=== PATIENT | male | born 1960 | race American Indian/Alaskan Native ===

== ENCOUNTER 2016-09-29 10:36 | Inpatient (IN) | payer MEDICARE ==
[2016-09-29 11:35] LABS: Basophils % (Auto) 0.4 % (0.0-1.8); Hematocrit 34.8 % (35.5-45.6); Mean Corpuscular HGB Conc 32 % (32-34); Mean Corpuscular Hemoglobin 27 pg (28-32); Mean Corpuscular Volume 84 fl (84-94); Platelet Count 140 K/mm3 (140-440); Red Blood Count 4.15 M/mm3 (3.65-5.03)
[2016-09-29] MEDS ORDERED: ZOFRAN IV ONE (11:42)
[2016-09-29] MEDS ORDERED: PROTONIX IV ONE (11:42)
[2016-09-29] MEDS ORDERED: REGLAN IV ONE (11:42)
[2016-09-29 11:45] LABS: BUN/Creatinine Ratio 7.46; Calcium 8.7 mg/dL (8.4-10.2); Chloride 89.6 mmol/L (98-107)
[2016-09-29 11:51] LABS: INR 1.45 (0.87-1.13)
[2016-09-29 11:52] LABS: Partial Thromboplastin Time 49.8 Sec. (24.2-36.6)
--- NOTE | 2016-09-29 11:58 | Emergency Department Report ---
ED General Adult HPI - General Chief complaint: Nausea/Vomiting/Diarrhea Stated complaint: NAUSEA/VOMITING Time Seen by Provider: 09/29/16 11:22 Source: patient Mode of arrival: Ambulatory Limitations: No Limitations - History of Present Illness Initial comments: Patient had the onset of vomiting dark material although he states he been drinking some coffee at about midnight last night. He was discharged from hospital at about 4 PM. He complains of pain in the subxiphoid O area which he describes as a burning. He states he's had normal bowel movements recently. He has not seen any tarry stool. He does take aspirin. He has no prior history of gastritis or peptic ulcer disease. He does not think he's been scoped in the past. He does have a history of cirrhosis but has not drank alcohol in some time. He does not take any anticoagulants. The patient has a history of nonischemic cardiomyopathy. He was recently treated for CHF exacerbation. He had a paracentesis during his recent hospitalization and removal of more than 3 L of fluid. He has chronic right pleural effusion. He had a CT on which showed large volume ascites, cirrhosis, nonfunctioning kidneys had degenerative changes of L4 and L5. His previous cardiac catheterization showed no evidence of coronary artery disease per Dr. Campbell. Patient is transported for her to this facility by EMS. He did vomit in the ambulance. He is given Zofran. Prehospital EKG showed no evidence of acute ischemia. This showed first-degree AV block essentially near normal repolarization. -: Gradual Location: chest, abdomen (subxiphoid/epigastric) Radiation: non-radiation (does not involve back) Quality: burning Consistency: constant Improves with: none Worsens with: none Associated Symptoms: denies other symptoms - Related Data Previous Rx's Medication Instructions Recorded Last Taken Type Aspirin [Aspirin TAB] 325 mg PO QDAY #30 tablet 09/28/16 Unknown Rx AtorvaSTATin [Lipitor] 40 mg PO QHS #30 tablet 09/28/16 Unknown Rx Carvedilol [Coreg] 12.5 mg PO BID #60 tablet 09/28/16 Unknown Rx Insulin Detemir [Levemir] 10 units SUB-Q QHS #1 vial 09/28/16 Unknown Rx Insulin Lispro [HumaLOG VIAL] 3 units SQ AC #1 vial 09/28/16 Unknown Rx Ipratropium/Albuterol Sulfate 1 ampul IH Q6HRT #30 ampul.neb 09/28/16 Unknown Rx [Duoneb 0.5 mg-3 mg/3 ml Soln] Lancets 1 each MC QID #100 each 09/28/16 Unknown Rx Lisinopril [Zestril TAB] 40 mg PO QDAY #30 tablet 09/28/16 Unknown Rx Syring W-Ndl,Disp,Insul,0.3 ml 1 each ACHS #100 disp.syrin 09/28/16 Unknown Rx [Insulin Syringe/Needle 0.3 ML] hydrALAZINE [Apresoline TAB] 50 mg PO Q8HR #120 tablet 09/28/16 Unknown Rx Allergies Allergy/AdvReac Type Severity Reaction Status Date / Time acetaminophen [From Percocet] Allergy Unknown Verified 06/27/16 18:49 morphine Allergy Unknown Verified 06/27/16 18:49 oxycodone Allergy Unknown Verified 06/27/16 18:49 oxycodone HCl [From Percocet] Allergy Unknown Verified 06/27/16 18:49 shellfish derived Allergy Unknown Verified 06/27/16 18:49 ED Review of Systems ROS: Stated complaint: NAUSEA/VOMITING Other details as noted in HPI Constitutional: denies: chills, fever Eyes: denies: eye pain, eye discharge, vision change ENT: denies: ear pain, throat pain Respiratory: denies: cough, shortness of breath, wheezing Cardiovascular: chest pain. denies: palpitations Endocrine: no symptoms reported Gastrointestinal: abdominal pain, nausea, vomiting. denies: diarrhea Genitourinary: denies: urgency, dysuria Musculoskeletal: denies: back pain, joint swelling, arthralgia Skin: denies: rash, lesions Neurological: denies: headache, weakness, paresthesias Psychiatric: denies: anxiety, depression Hematological/Lymphatic: denies: easy bleeding, easy bruising ED Past Medical Hx - Past Medical History Previous Medical History?: Yes Hx Hypertension: Yes Hx Congestive Heart Failure: Yes Hx Diabetes: Yes Hx Renal Disease: Yes (renal failure) Hx Arthritis: Yes Hx Seizures: Yes Hx Psychiatric Treatment: Yes (depression) Additional medical history: sleep apnea, erective dysfunction, dialysis, back pain, high cholesterol - Surgical History Past Surgical History?: Yes Additional Surgical History: biopsy on prostate, colonoscopy, fistula left arm, - Social History Smoking Status: Never Smoker - Medications Home Medications: Home Medications Medication Instructions Recorded Confirmed Last Taken Type Aspirin [Aspirin TAB] 325 mg PO QDAY #30 tablet 09/28/16 09/29/16 Unknown Rx AtorvaSTATin [Lipitor] 40 mg PO QHS #30 tablet 09/28/16 09/29/16 Unknown Rx Carvedilol [Coreg] 12.5 mg PO BID #60 tablet 09/28/16 09/29/16 Unknown Rx Insulin Detemir [Levemir] 10 units SUB-Q QHS #1 vial 09/28/16 09/29/16 Unknown Rx Insulin Lispro [HumaLOG VIAL] 3 units SQ AC #1 vial 09/28/16 09/29/16 Unknown Rx Ipratropium/Albuterol Sulfate 1 ampul IH Q6HRT #30 ampul.neb 09/28/16 09/29/16 Unknown Rx [Duoneb 0.5 mg-3 mg/3 ml Soln] Lancets 1 each QID #100 each 09/28/16 09/29/16 Unknown Rx Lisinopril [Zestril TAB] 40 mg PO QDAY #30 tablet 09/28/16 09/29/16 Unknown Rx Syring W-Ndl,Disp,Insul,0.3 ml 1 each ACHS #100 disp.syrin 09/28/16 09/29/16 Unknown Rx [Insulin Syringe/Needle 0.3 ML] hydrALAZINE [Apresoline TAB] 50 mg PO Q8HR #120 tablet 09/28/16 09/29/16 Unknown Rx ED Physical Exam - General Limitations: No Limitations General appearance: alert, in no apparent distress, other (uncomfortable) - Head Head exam: Present: atraumatic, normocephalic. Absent: normal inspection - Eye Eye exam: Present: normal appearance - ENT ENT exam: Present: mucous membranes moist - Neck Neck exam: Present: normal inspection - Respiratory Respiratory exam: Present: normal lung sounds bilaterally. Absent: respiratory distress - Cardiovascular Cardiovascular Exam: Present: regular rate, normal rhythm. Absent: systolic murmur, diastolic murmur, rubs, gallop - GI/Abdominal GI/Abdominal exam: Present: soft, distended, tenderness (epigastric and right upper quadrant tenderness no rebound no guarding), normal bowel sounds, organomegaly (probable hepatomegaly), other (no gross palpable fluid wave). Absent: guarding, rebound, rigid, mass, bruit, pulsatile mass, hernia - Rectal Rectal exam: Present: deferred - Extremities Exam Extremities exam: Present: normal inspection - Back Exam Back exam: Present: normal inspection - Neurological Exam Neurological exam: Present: alert, oriented X3, CN II-XII intact. Absent: motor sensory deficit - Psychiatric Psychiatric exam: Present: normal affect, normal mood - Skin Skin exam: Present: warm, dry, intact, normal color. Absent: rash - Other Other exam information: Hemoccult of emesis was significantly positive ED Course Vital Signs 09/29/16 09/29/16 11:00 11:09 Temperature 97.8 F Pulse Rate 73 Respiratory 20 20 Rate Blood Pressure 165/74 O2 Sat by Pulse 100 100 Oximetry - Reevaluation(s) Reevaluation #1: Patient declined opiates as he states they cause itching. We will see if he changes his mind and we can give him Benadryl first. 09/29/16 11:58 ED Medical Decision Making - Lab Data Result diagrams: 09/29/16 11:26 09/29/16 11:14 Laboratory Results - last 24 hr 09/29/16 09/29/16 09/29/16 11:14 11:14 11:14 WBC RBC Hgb Hct MCV MCH MCHC RDW Plt Count Lymph % (Auto) [place] % (Auto) Eos % (Auto) Baso % (Auto) Lymph # [place] # Eos # Baso # Seg Neutrophils % Seg Neutrophils # PT 17.6 H INR 1.45 H APTT 49.8 H Sodium 133 L Potassium 5.0 Chloride 89.6 L Carbon Dioxide 28 Anion Gap 20 BUN 47 H Creatinine 6.3 H Estimated GFR 11 BUN/Creatinine Ratio 7.46 Glucose 398 H Lactic Acid Calcium 8.7 Phosphorus Magnesium Ammonia Total Creatine Kinase 766 H CK-MB (CK-2) 19.1 H CK-MB (CK-2) Rel Index 2.4 Troponin T 1.340 H* Amylase Lipase Blood Type Antibody Screen MARYCHUY Antibody Screen 09/29/16 09/29/16 09/29/16 11:14 11:14 11:26 WBC 6.0 RBC 4.15 Hgb 11.0 L Hct 34.8 L MCV 84 MCH 27 L MCHC 32 RDW 20.0 H Plt Count 140 Lymph % (Auto) 9.1 L [place] % (Auto) 7.8 H Eos % (Auto) 8.0 H Baso % (Auto) 0.4 Lymph # 0.5 L [place] # 0.5 Eos # 0.5 H Baso # 0.0 Seg Neutrophils % 74.7 H Seg Neutrophils # 4.5 PT INR APTT Sodium Potassium Chloride Carbon Dioxide Anion Gap BUN Creatinine Estimated GFR BUN/Creatinine Ratio Glucose Lactic Acid Calcium Phosphorus 2.70 Magnesium 1.90 Ammonia Total Creatine Kinase CK-MB (CK-2) CK-MB (CK-2) Rel Index Troponin T Amylase 113 Lipase 62 H Blood Type Antibody Screen MARYCHUY Antibody Screen 09/29/16 09/29/16 09/29/16 11:45 12:12 12:12 WBC RBC Hgb Hct MCV MCH MCHC RDW Plt Count Lymph % (Auto) [place] % (Auto) Eos % (Auto) Baso % (Auto) Lymph # [place] # Eos # Baso # Seg Neutrophils % Seg Neutrophils # PT INR APTT Sodium Potassium Chloride Carbon Dioxide Anion Gap BUN Creatinine Estimated GFR BUN/Creatinine Ratio Glucose Lactic Acid 0.80 Calcium Phosphorus Magnesium Ammonia 47.0 Total Creatine Kinase CK-MB (CK-2) CK-MB (CK-2) Rel Index Troponin T Amylase Lipase Blood Type B POSITIVE Antibody Screen TNR MARYCHUY Antibody Screen Negative - EKG Data -: EKG Interpreted by Me EKG shows normal: axis, intervals, QRS complexes, ST-T waves Rate: normal - EKG Data Interpretation: other (first-degree AV block nonspecific changes) - Radiology Data interpreted by me: Chest x-ray shows some minor fissure fluid on the right. I don't see any acute change in neither the radiologist. - Medical Decision Making The patient does have an elevated troponin in the setting of cardiomyopathy and end-stage renal on dialysis. He June had a troponin of 0.8 5 which was as well elevated. He is been previously determined to have a nonischemic cardiomyopathy. He has definite hematemesis. I do not think that his elevated troponin is likely secondary to non-STEMI. His EKG does not reflect ischemia. I would withhold aspirin and heparin at this point considering the upper GI bleeding. I discussed this with hospitalist Dr. Upton. Patient will be admitted to telemetry for further care and evaluation. I will consult Dr. Campbell who is familiar with this patient. Critical care attestation.: If time is entered above; I have spent that time in minutes in the direct care of this critically ill patient, excluding procedure time. ED Disposition Clinical Impression: Upper GI bleeding, ESRD (end stage renal disease) on dialysis, Nonischemic cardiomyopathy, Elevated troponin Disposition: OP ADMITTED IP TO THIS HOSP Is pt being admited?: Yes Does the pt Need Aspirin: No Condition: Stable Referrals: PRIMARY CARE, [Primary Care Provider] - 3-5 Days Time of Disposition: 13:16
--- NOTE | 2016-09-29 12:18 | XRay Report ---
AP CHEST: HISTORY: Hypertension Heart size is borderline to mildly increased. Normal pulmonary vascularity. The lungs are clear. No evidence for pneumonia, CHF or pneumothorax. IMPRESSION: Borderline to mild cardiomegaly.
[2016-09-29 12:31] LABS: Magnesium 1.9 mg/dL (1.7-2.3)
[2016-09-29 12:36] LABS: Creatine Kinase MB 19.1 ng/mL (0.0-4.0)
[2016-09-29 13:03] LABS: Phosphorous 2.7 mg/dL (2.5-4.5)
[2016-09-29] MEDS ORDERED: NITRO-BID 2% TP ONE ×2 (14:27→14:50)
--- NOTE | 2016-09-29 14:39 | Progress Note ---
Assessment and Plan Impression: * End stage renal disease on HD TTS * hematemesis * Elevated troponin * Dyspnea secondary to pulmonary edema * Abdominal ascites * Non-ischemic cardiomyopathy, LVEF 30% by LV gram ([facility] in Jun 2016) * Type II diabetes mellitus - uncontrolled * Hypertension * Anemia secondary to ESRD * Secondary hyperparathyroidism * Dietary noncompliance Plan: * Continue HD UF as tolerated * with troponin of 1.3, no plans for hd today until evaluated by cards and GI * Patient is s/p paracentesis - 3.7liters removed * Cardiology recs noted - possible elective ICD in future * Importance of fluid restriction discussed with patient * Renal diet; fluid restriction 1000ml/day * Epogen for goal Hb 10-12 Subjective Date of service: 09/29/16 Principal diagnosis: esrd Interval history: events noted, resting in bed Objective - Exam Narrative Exam: General appearance: well-developed, well-nourished EENT: mucous membranes moist Respiratory: Present: Clear to Ascultation Cardiology: regular, S1S2 Gastrointestinal: normal, no tenderness, no distended Neurologic: no focal deficit Musculoskeletal: other (no edema) Psychiatric: cooperative - Vital Signs Vital signs: Vital Signs - 12hr 09/29/16 14:12 Temperature 97.7 F Pulse Rate 81 Respiratory 16 Rate Blood Pressure 179/92 [Left] O2 Sat by Pulse 100 Oximetry - Lab 09/29/16 11:26 09/29/16 11:14 Most recent lab results Calcium 8.7 mg/dL (8.4-10.2) 09/29/16 11:14 Phosphorus 2.70 mg/dL (2.5-4.5) 09/29/16 11:14 Magnesium 1.90 mg/dL (1.7-2.3) 09/29/16 11:14
--- NOTE | 2016-09-29 15:18 | Gastroenterology Consultation ---
History of Present Illness - Reason for Consult Consult date: 09/29/16 coffee ground emesis Requesting physician: MALLY DEVINE - History of Present Illness Mr Westfall is a 56 yo male with h/o ESRD, HTN and CHF presenting with substernal and upper abdominal pain with n/v. Pt was discharged yesterday after admission for CHF exacerbation. He reports drinking coffee at midnight, and proceeded to have multiple episodes of dark brown emesis. He denies black appearing emesis or obvious blood. He denies melena, or NSAIDs other than aspirin. Of note, pt with evidence of cirrhosis on recent CT scan with ascites s/p paracentesis on prior admission. He has a past h/o alcohol abuse, but denies recent alcohol intake. Denies prior h/o GI bleeding. Past History Past Medical History: diabetes, ESRD, GERD, heart failure, hypertension, other ( cirrhosis) Social history: no significant social history Family history: no significant family history Medications and Allergies Allergies Allergy/AdvReac Type Severity Reaction Status Date / Time acetaminophen [From Percocet] Allergy Unknown Verified 06/27/16 18:49 morphine Allergy Unknown Verified 06/27/16 18:49 oxycodone Allergy Unknown Verified 06/27/16 18:49 oxycodone HCl [From Percocet] Allergy Unknown Verified 06/27/16 18:49 shellfish derived Allergy Unknown Verified 06/27/16 18:49 Home Medications Medication Instructions Recorded Confirmed Last Taken Type Aspirin [Aspirin TAB] 325 mg PO QDAY #30 tablet 09/28/16 09/29/16 Unknown Rx AtorvaSTATin [Lipitor] 40 mg PO QHS #30 tablet 09/28/16 09/29/16 Unknown Rx Carvedilol [Coreg] 12.5 mg PO BID #60 tablet 09/28/16 09/29/16 Unknown Rx Insulin Detemir [Levemir] 10 units SUB-Q QHS #1 vial 09/28/16 09/29/16 Unknown Rx Insulin Lispro [HumaLOG VIAL] 3 units SQ AC #1 vial 09/28/16 09/29/16 Unknown Rx Ipratropium/Albuterol Sulfate 1 ampul IH Q6HRT #30 ampul.neb 09/28/16 09/29/16 Unknown Rx [Duoneb 0.5 mg-3 mg/3 ml Soln] Lancets 1 each MC QID #100 each 09/28/16 09/29/16 Unknown Rx Lisinopril [Zestril TAB] 40 mg PO QDAY #30 tablet 09/28/16 09/29/16 Unknown Rx Syring W-Ndl,Disp,Insul,0.3 ml 1 each ACHS #100 disp.syrin 09/28/16 09/29/16 Unknown Rx [Insulin Syringe/Needle 0.3 ML] hydrALAZINE [Apresoline TAB] 50 mg PO Q8HR #120 tablet 09/28/16 09/29/16 Unknown Rx Review of Systems - Review of Systems All systems: negative Cardiovascular: shortness of breath Exam - Constitutional Vital Signs: Temp Pulse Resp BP Pulse Ox 97.7 F 84 16 181/110 100 09/29/16 14:12 09/29/16 15:00 09/29/16 14:12 09/29/16 15:00 09/29/16 14:12 General appearance: no acute distress - EENT Eyes: PERRL, EOM intact ENT: hearing intact, clear oral mucosa - Neck Neck: supple - Respiratory Respiratory effort: normal Respiratory: right: diminished, left: CTA - Cardiovascular Rhythm: regular Heart Sounds: Present: S1 & S2 Extremities: Full ROM Extremity abnormal: edema - Gastrointestinal General gastrointestinal: Present: soft, non-tender, non-distended, normal bowel sounds - Neurologic Neurological: alert and oriented x3 - Psychiatric Psychiatric: appropriate mood/affect - Labs CBC & Chem 7: 09/29/16 11:26 09/29/16 11:14 Assessment and Plan 1. epigastric/substernal pain - unclear etiology, noted elevated troponin on admission, however has had recent LHC which was negative for CAD (EF 30%). ddx also includes PUD, severe GERD, gallstone/biliary etiology, and gastroparesis 2. nausea/vomitting - pt reports dark brown emesis, denies black/harris blood emesis. Hct within baseline. Unclear etiology, but pt noted to have poorly controlled DM (a1c of 15.5) so likely has component of gastroparesis. 3. cirrhosis - noted on imaging, and also consistent with labs. h/o alcohol abuse, r/o viral hepatitis with serologies. If pt requires paracentesis, send fluid for diagnostic studies (total protein, cell count/diff, albumin, culture/ gram stain). He will need follow-up in GI clinic for management of cirrhosi 4. anemia -stable hct on admission. low suspicion for active gi bleeding, although he does have multiple risk factors and should have eventual non-urgent EGD for varices screening if cleared by cardiology (or urgently if needed/signs of bleeding)
--- NOTE | 2016-09-29 21:17 | Event Note ---
Date: 09/29/16 See H/p in reports Upper GI bleed-Questionable per GI HTN ESRD IDDM Ascites
[2016-09-29] MEDS: COREG PO SCH (22:11)
[2016-09-29] MEDS: APRESOLINE PO SCH (22:12)
[2016-09-29] MEDS: ASPIRIN PO SCH (22:13)
[2016-09-29] MEDS: PROTONIX IV SCH (22:13)
[2016-09-29] MEDS: LEVEMIR SUB-Q SCH (22:14)
[2016-09-30] MEDS ORDERED: DUONEB 0.5 MG-3 MG/3 ML SOLN IH SCH (02:00)
--- NOTE | 2016-09-30 06:15 | History and Physical Report ---
CHIEF COMPLAINT: 1. Abdominal pain. 2. Dark brown emesis. HISTORY OF PRESENT ILLNESS: A 56-year-old male with history of end-stage renal disease, end-stage cardiac disease with poor ejection fraction, hypertension, and CHF, presenting with upper abdominal pain and nausea/vomiting x 1. Apparently, it was dark brown emesis. ER stated that it was after breakfast. It may also have the coffee he drank last night. The patient was recently discharged from this facility after being treated for CHF exacerbation, end-stage renal disease on dialysis, and ascites. The patient had paracentesis. The patient's shortness of breath improved a large extent he was sent home. The patient is noncompliant. The patient was advised to be compliant. At the time of discharge, the patient also had ascites and severe systolic CHF. 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 A 3.7 liters of fluid removed at the last admission. The discharge was on 09/28/2016. In summary, the patient has had epigastric pain and dark brown emesis, which may have been the last night coffee or blood. As per ER, he is occult blood positive. PAST MEDICAL HISTORY: Significant for hypertension, congestive heart failure, end-stage renal disease on dialysis, and insulin-dependent diabetes. CURRENT MEDICATIONS: On the chart. PAST SURGICAL HISTORY: Biopsy of prostate, colonoscopy, and fistula in left arm. SOCIAL HISTORY: Never a smoker. FAMILY HISTORY: Hypertension. REVIEW OF SYSTEMS: Significant for abdominal pain and dark brown emesis and also shortness of breath on minimal exertion. Otherwise, review of systems is essentially negative. PHYSICAL EXAMINATION: GENERAL: Elderly male lying comfortable in bed. VITAL SIGNS: Blood pressure 164/96, temperature is 99, pulse 87, respirations are 16. HEENT: Unremarkable. Pupils equal and reactive. NECK: Supple, no lymphadenopathy, no thyromegaly. LUNGS: Clear to auscultation and percussion. Good air entry. CARDIOVASCULAR: S1, S2 heard. No gallop, no murmur, no rub. Apical impulse in left fifth intercostal space and midclavicular line. ABDOMEN: Soft and benign. No hepatosplenomegaly. No guarding, no rigidity. Hernial orifices are normal. EXTREMITIES: Good pedal pulses. No pedal edema. Left upper extremity graft patent. CENTRAL NERVOUS SYSTEM: Alert and oriented x 4, nonfocal exam. LABORATORY DATA: Significant for hemoglobin of 11, hematocrit 34.8, and platelet count of 140. White count of 6000. Sodium is 133, potassium is 5, BUN and creatinine is 47 and 6.8, and glucose is 233. Troponin is elevated at 1.3. Total CK 766 and CK-MB is 19.1 and index is low 2.4. Lipase is 62. IMAGING: EKG shows normal sinus rhythm. Normal QRS complexes. Nonspecific ST-T wave changes. First degree AV block nonspecific. Chest x-ray shows minor fissure fluid on the right side. No acute changes otherwise. ASSESSMENT AND PLAN: 1. Upper gastrointestinal bleed, doubtful. ER state he is occult blood positive. As per GI, it is probably old coffee, which came out during emesis. GI to decide about doing upper endoscopy. I was requesting them to do an upper endoscopy to rule out esophageal varices or esophageal bleed. Troponin is elevated and GI wants cardiac clearance. Cardiology consult requested. Elevated troponin may be nonspecific. It is a bit high. We will defer to Cardiology. 2. Hypertension. Continue Coreg 12.5 mg b.i.d., hydralazine 50 mg q.8h., and lisinopril 40 mg daily. 3. Insulin-dependent diabetes. Continue Levemir 10 units subcutaneous at bedtime and 3 units before each meal. 4. Hyperlipidemia. Continue atorvastatin 40 mg p.o. at bedtime. 5. Chronic obstructive pulmonary disease. Continue . 6. 3.7 liters recently. Hospitalist team to decide whether to pursue with paracentesis, had paracentesis only 3-4 days ago. 7 Deep venous thrombosis prophylaxis, Lovenox 40 mg subcutaneous daily. JOB# [id number] LINETTE/NTS
[2016-09-30] MEDS: APRESOLINE PO SCH ×3 (06:28→21:40)
[2016-09-30] MEDS ORDERED: INSULIN LISPRO 3 UNIT SQ SCH (07:30)
[2016-09-30] MEDS: NOVOLOG SUB-Q SCH ×6 (08:08→22:05)
[2016-09-30] MEDS: DUONEB 0.5 MG-3 MG/3 ML SOLN IH SCH ×2 (08:59→19:48)
--- NOTE | 2016-09-30 09:00 | Progress Note ---
Assessment and Plan Assessment and plan: 56-year-old man with a past medical history of hypertension, poor compliance, type 2 diabetes which is insulin-dependent, systolic CHF, end-stage renal disease/CkD stage V on hemodialysis treatments , recent paracentesis with 3.7 L of ascitic fluid removed last week , who presents with abdominal pain, nausea/ vomiting 1. Abdominal Pain/Nausea and Vomiting Now resolved, most likely gastroenteritis or due to hyperosmolar states Follow-up abdominal ultrasound 2. Chronic systolic CHF continue renal diet, and fluid restriction recent echocardiogram June 2016 showed an EF of 25% Cardiological management patient 3. Type 2 diabetes/uncontrolled/insulin-dependent/diabetic hyperosmolarity poor compliance with insulin at home Glucose was greater than 500 on presentation, continue long-acting insulin, pre- meal insulin sliding scale Patient was reeducated again about improving compliance with his medications treatments and dialysis sessions 5. COPD Doesn't appear to be exacerbation at this time, continue inhalers 6. End-stage renal disease/chronic kidney disease stage V on hemodialysis Continue hemodialysis, nephrology input appreciated 7. DVT prophylaxis Heparin subcutaneous History Interval history: Bleeding he states the nausea and vomiting has resolved, he feels fine now. No complaints Hospitalist Physical - Physical exam Narrative exam: General: Patient appears well in no distress HEENT: MMM, EOMI cardiac: S1-S2 heard lungs: clear to auscultation, abdomen: soft, nontender, nondistended bowel sounds positive extremities: no edema clubbing or cyanosis Skin: no rash or lesion Neuro: no focal deficit Psych: appropriate behavior and mood, cognition intact - Constitutional Vitals: Temp Pulse Resp BP Pulse Ox 98.8 F 73 20 161/101 99 09/30/16 06:00 09/30/16 08:56 09/30/16 08:56 09/30/16 06:00 09/30/16 08:56 Results - Labs CBC & Chem 7: 09/29/16 11:26 09/29/16 11:14 Labs: Laboratory Last Values WBC 6.0 K/mm3 (4.5-11.0) 09/29/16 11:26 RBC 4.15 M/mm3 (3.65-5.03) 09/29/16 11:26 Hgb 11.0 gm/dl (11.8-15.2) L 09/29/16 11:26 Hct 34.8 % (35.5-45.6) L 09/29/16 11: MCV 84 fl (84-94) 09/29/16 11: MCH 27 pg (28-32) L 09/29/16 11: MCHC 32 % (32-34) 09/29/16 11:26 RDW 20.0 % (13.2-15.2) H 09/29/16 11:26 Plt Count 140 K/mm3 (140-440) 09/29/16 11:26 Lymph % (Auto) 9.1 % (13.4-35.0) L 09/29/16 11:26 [place] % (Auto) 7.8 % (0.0-7.3) H 09/29/16 11:26 Eos % (Auto) 8.0 % (0.0-4.3) H 09/29/16 11:26 Baso % (Auto) 0.4 % (0.0-1.8) 09/29/16 11:26 Lymph # 0.5 K/mm3 (1.2-5.4) L 09/29/16 11:26 [place] # 0.5 K/mm3 (0.0-0.8) 09/29/16 11:26 Eos # 0.5 K/mm3 (0.0-0.4) H 09/29/16 11:26 Baso # 0.0 K/mm3 (0.0-0.1) 09/29/16 11:26 Seg Neutrophils % 74.7 % (40.0-70.0) H 09/29/16 11:26 Seg Neutrophils # 4.5 K/mm3 (1.8-7.7) 09/29/16 11:26 PT 17.6 Sec. (12.2-14.9) H 09/29/16 11:14 INR 1.45 (0.87-1.13) H 09/29/16 11:14 APTT 49.8 Sec. (24.2-36.6) H 09/29/16 11:14 Sodium 133 mmol/L (137-145) L 09/29/16 11:14 Potassium 5.0 mmol/L (3.6-5.0) 09/29/16 11:14 Chloride 89.6 mmol/L (98-107) L 09/29/16 11:14 Carbon Dioxide 28 mmol/L (22-30) 09/29/16 11:14 Anion Gap 20 mmol/L 09/29/16 11:14 BUN 47 mg/dL (9-20) H 09/29/16 11:14 Creatinine 6.3 mg/dL (0.8-1.5) H 09/29/16 11:14 Estimated GFR 11 ml/min 09/29/16 11:14 BUN/Creatinine Ratio 7.46 % 09/29/16 11:14 Glucose 398 mg/dL (75-100) H 09/29/16 11:14 POC Glucose 374 (70-105) H 09/29/16 21:52 Lactic Acid 0.80 mmol/L (0.7-2.0) 09/29/16 12:12 Calcium 8.7 mg/dL (8.4-10.2) 09/29/16 11:14 Phosphorus 2.70 mg/dL (2.5-4.5) 09/29/16 11:14 Magnesium 1.90 mg/dL (1.7-2.3) 09/29/16 11:14 Ammonia 47.0 umol/L (25-60) 09/29/16 12:12 Total Creatine Kinase 766 units/L (55-170) H 09/29/16 11:14 CK-MB (CK-2) 19.1 ng/mL (0.0-4.0) H 09/29/16 11:14 CK-MB (CK-2) Rel Index 2.4 (0-4) 09/29/16 11:14 Troponin T 1.290 ng/mL (0.00-0.029) H* 09/29/16 17:34 NT-Pro-B Natriuret Pep > 11044 pg/mL (0-900) H 09/29/16 11:14 Triglycerides 43 mg/dL (2-149) 09/29/16 11:14 Cholesterol 88 mg/dL (50-199) 09/29/16 11:14 LDL Cholesterol Direct 40 mg/dL (50-130) L 09/29/16 11:14 HDL Cholesterol 40 mg/dL (40-59) 09/29/16 11:14 Cholesterol/HDL Ratio 2.20 % 09/29/16 11:14 Amylase 113 units/L (27-131) 09/29/16 11:14 Lipase 62 units/L (13-60) H 09/29/16 11:14 Blood Type B POSITIVE 09/29/16 11:45 Antibody Screen TNR 09/29/16 11:45 MARYCHUY Antibody Screen Negative 09/29/16 11:45
[2016-09-30] MEDS ORDERED: ZESTRIL PO SCH (10:00)
[2016-09-30] MEDS: PROTONIX IV SCH ×2 (10:03→21:41)
[2016-09-30] MEDS ORDERED: NACL 0.9% 100 ML IV PRN (11:04)
--- NOTE | 2016-09-30 11:04 | Progress Note ---
Assessment and Plan Impression: * End stage renal disease * hematemesis * Elevated troponin * Dyspnea secondary to pulmonary edema * Abdominal ascites * Non-ischemic cardiomyopathy, LVEF 30% by LV gram ([facility] in Jun 2016) * Type II diabetes mellitus - uncontrolled * Hypertension * Anemia secondary to ESRD * Secondary hyperparathyroidism * Dietary noncompliance Plan: * Continue HD in am * UF as tolerated * with troponin of 1.3, no plans for hd today until evaluated by cards and GI * Patient is s/p paracentesis - 3.7liters removed * Cardiology recs noted - possible elective ICD in future * Importance of fluid restriction discussed with patient * Renal diet; fluid restriction 1000ml/day * Epogen for goal Hb 10-12 Subjective Date of service: 09/30/16 Principal diagnosis: esrd Interval history: events noted, resting in bed Objective - Exam Narrative Exam: General appearance: well-developed, well-nourished EENT: mucous membranes moist Respiratory: Present: Clear to Ascultation Cardiology: regular, S1S2 Gastrointestinal: normal, no tenderness, no distended Neurologic: no focal deficit Musculoskeletal: other (no edema) Psychiatric: cooperative - Vital Signs Vital signs: Vital Signs - 12hr 09/30/16 09/30/16 09/30/16 00:00 02:00 02:07 Temperature 99 F Pulse Rate 75 Pulse Rate [ From Monitor] Pulse Rate [ 75 Posterior Bilateral Throughout] Pulse Rate [ 77 Right Radial] Respiratory 21 Rate Respiratory 20 Rate [Posterior Bilateral Throughout] Blood Pressure 147/92 [Left Arm] Blood Pressure [Right Radial Artery] O2 Sat by Pulse 99 Oximetry 09/30/16 09/30/16 09/30/16 02:20 03:06 06:00 Temperature 98.8 F Pulse Rate Pulse Rate [ From Monitor] Pulse Rate [ 75 Posterior Bilateral Throughout] Pulse Rate [ 75 Right Radial] Respiratory 18 20 Rate Respiratory 20 Rate [Posterior Bilateral Throughout] Blood Pressure 161/101 [Left Arm] Blood Pressure [Right Radial Artery] O2 Sat by Pulse 96 Oximetry 09/30/16 09/30/16 09/30/16 08:56 09:15 09:57 Temperature 98.0 F Pulse Rate Pulse Rate [ From Monitor] Pulse Rate [ 73 75 Posterior Bilateral Throughout] Pulse Rate [ 72 Right Radial] Respiratory 16 Rate Respiratory 20 20 Rate [Posterior Bilateral Throughout] Blood Pressure [Left Arm] Blood Pressure 148/94 [Right Radial Artery] O2 Sat by Pulse 99 98 Oximetry 09/30/16 10:00 Temperature Pulse Rate Pulse Rate [ 75 From Monitor] Pulse Rate [ Posterior Bilateral Throughout] Pulse Rate [ Right Radial] Respiratory 20 Rate Respiratory Rate [Posterior Bilateral Throughout] Blood Pressure [Left Arm] Blood Pressure [Right Radial Artery] O2 Sat by Pulse 98 Oximetry - Lab 09/29/16 11:26 09/29/16 11:14 Most recent lab results Calcium 8.7 mg/dL (8.4-10.2) 09/29/16 11:14 Phosphorus 2.70 mg/dL (2.5-4.5) 09/29/16 11:14 Magnesium 1.90 mg/dL (1.7-2.3) 09/29/16 11:14
--- NOTE | 2016-09-30 11:23 | Ultrasound Report ---
Abdominal sonogram: History: Abdominal pain. Findings: Normal aorta and inferior vena cava. Course echogenic pattern of the liver probably suggestive of cirrhosis. No distinct mass. Evidence of moderate ascites and right pleural effusion. Gallbladder wall thickness 3.5 mm. Common bile duct diameter 2.8 mm. No calculi in the gallbladder. No pericholecystic fluid. Right kidney 8.3 x 3.5 x 3.8 cm. Cortical thickness 1 cm. Left kidney 8 x 4.7 x 2.8 cm. Cortical thickness 1.3 cm. Bilateral echogenic kidneys. Poorly defined cortical medullary junction. Impression: Cirrhosis. Ascites. Right pleural effusion. Probable chronic renal disease.
[2016-09-30] MEDS: ASPIRIN PO SCH (13:06)
[2016-09-30] MEDS: COREG PO SCH ×2 (17:06→21:41)
--- NOTE | 2016-09-30 21:09 | Gastroenterology Progress Note ---
Assessment and Plan 1. cirrhosis - reported h/o alcohol abuse, r/o other etiologies. h/o ascites ( obtain diagnostic tap to help differentiate b/w portal htn vs CHF related ascites) 2. nausea/vomiting - improved, no further episodes since admission. denies signs of GI bleeding. suspect component of gastroparesis given poorly controlled dm and significant elevation in glucose on admission. -will plan for possible EGD tomorrow if cleared by cardiology (CHF, and elevated troponin although this is in setting of ESRD and appears to have recent C w/o CAD Subjective Date of service: 09/30/16 Principal diagnosis: coffee ground emesis, cirrhosis, ESRD, CHF Interval history: pt denies new complaints today. no further episodes of abd pain or n/v. Objective - Constitutional Vitals: Temp Pulse Resp BP Pulse Ox 98.0 F 70 20 167/98 98 09/30/16 09:57 09/30/16 17:07 09/30/16 10:00 09/30/16 17:07 09/30/16 10:00 General appearance: no acute distress - Respiratory Respiratory effort: normal Respiratory: bilateral: CTA - Cardiovascular Rhythm: regular Heart Sounds: Present: S1 & S2 - Gastrointestinal General gastrointestinal: Present: soft, non-tender, normal bowel sounds - Neurologic Neurological: alert and oriented x3 - Psychiatric Psychiatric: appropriate mood/affect - Labs CBC & Chem 7: 09/29/16 11:26 09/29/16 11:14 Labs: Laboratory Results - last 24 hr 09/29/16 21:52 POC Glucose 374 H - Imaging Ultrasound: report reviewed
[2016-09-30] MEDS: LEVEMIR SUB-Q SCH (21:42)
[2016-09-30] MEDS: HEPARIN SUB-Q SCH (21:45)
--- NOTE | 2016-10-01 03:23 | Admit Criteria Form ---
Admission Criteria Documentation: GASTROINTESTINAL BLEEDING, UPPER Clinical Indications for Admission to Inpatient Care ( Place 'X' for any and all applicable criteria): Admission is indicated for ANY ONE of the following(1)(2)(3)(4)(5)(6): [ ]I. Active bleeding (eg, fresh voluminous blood in emesis or nasogastric aspirate) [ ]II. Associated conditions requiring hospitalization (eg, perforation, obstruction from ulcer) [ ]III. Inpatient admission required rather than observation care (Also use Gastrointestinal Bleeding, Upper: Observation Care as appropriate) because of ANY ONE of the following: [ ]a) Hemodynamic instability that is severe or persistent [ ]b) Anemia requiring inpatient admission as indicated by ALL of the following: [ ]1) Presence of significant clinical finding indicated by ANY ONE of the following: [ ]A. Tachycardia for age [ ]B. Orthostatic vital sign changes [ ]C. Cognitive impairment [ ]D. Heart failure [ ]E. Chest pain [ ]F. Exertional dyspnea [ ]G. Other findings suggesting inadequate perfusion (eg, peripheral or myocardial ischemia, end organ dysfunction) [ ]2) Initial (eg, emergency department, observation care) treatment with transfusion or volume replacement is judged inappropriate (due to severity of the finding) or has been ineffective [ ]c) Severe pain requiring acute inpatient management [ ]d) High-risk low platelet count [ ]e) IV fluid to replace significant ongoing losses (greater than 3 L/m2 per day) [ ]f) Immediate inpatient surgery [ ]g) Other condition, treatment or monitoring requiring inpatient admission [ X]IV. Severe liver disease (eg, cirrhosis) [ ]V. Significant active comorbid disease [ ]. Anticoagulation therapy [ ]VII. High-risk endoscopic features (arterial bleeding, adherent clot, nonbleeding visible vessel, varices, flat red spots, ulcer size greater than 2 cm, or portal hypertensive gastropathy) [ ]VIII. Previous aortic graft placement or known aortic aneurysm [ ]IX. Coagulopathy [ ]X. Syncope Extended stay beyond goal length of stay may be needed for(1)(2): [ ]a) Emergency surgery [ ]b) Varices [ ]c) Coagulation abnormalities [ ]d) Recurrent, obscure, or persistent bleeding or continued Hemodynamic instability [ ]e) Associated conditions requiring surgery (eg, perforated gastric ulcer, gastric outlet obstruction) [ ]f) Active comorbidities (eg, renal insufficiency, heart failure, pre- existing liver disease) The original [facility] [employer] content created by [facility] [email or web address] has been revised. The portions of the content which have been revised are identified through the use of italic text or in bold, and [email or web address] has neither reviewed nor approved the modified material. All other unmodified content is copyright [facility] [email or web address]. Please see references footnoted in the original [facility] [employer] edition 2016
[2016-10-01] MEDS ORDERED: ULTRAM PO ONE (04:58)
[2016-10-01] MEDS: HEPARIN SUB-Q SCH ×4 (06:11→22:48)
[2016-10-01] MEDS: APRESOLINE PO SCH ×3 (06:11→22:35)
[2016-10-01] MEDS ORDERED: DIPRIVAN 10 MG/ML IV ONE ×2 (07:19)
[2016-10-01] MEDS ORDERED: NACL 0.9% 1000 ML 1,000 ML ONE (07:40)
[2016-10-01] MEDS: NOVOLOG SUB-Q SCH ×6 (07:49→22:39)
[2016-10-01] MEDS ORDERED: NACL 0.9% 1000 ML 1,000 ML IV SCH (08:00)
--- NOTE | 2016-10-01 08:04 | Anesthesia Consultation ---
Anesthesia Consult and Med Hx Date of service: 10/01/16 - Airway Anesthetic Teeth Evaluation: Poor ROM Head & Neck: Adequate Mental/Hyoid Distance: Adequate Mallampati Class: Class II Intubation Access Assessment: Probably Good - Pulmonary Exam CTA: Yes - Cardiac Exam Cardiac Exam: No Murmur (Bradycardic) - Pre-Operative Health Status ASA Pre-Surgery Classification: ASA4 Proposed Anesthetic Plan: MAC - Pulmonary Hx Smoking: Yes COPD: Yes Hx Sleep Apnea: Yes - Cardiovascular System Hx Hypertension: Yes Hx Coronary Artery Disease: Yes (EF ~30%, bradycardic upon examination) Hx Angina: Yes (ascities due to end stage cardiac disease) Hx Percutaneous Transluminal Coronary Angioplasty (PTCA): Yes Hx Peripheral Vascular Disease: Yes - Central Nervous System Hx Seizures: Yes - Endocrine Hx Renal Disease: Yes (renal failure) Hx End Stage Renal Disease: Yes Hx Insulin Dependent Diabetes: Yes - Hematic Hx Anemia: No Hx Sickle Cell Disease: No - Other Systems Hx Alcohol Use: No Hx Substance Use: No Hx Cancer: No Hx Obesity: No
--- NOTE | 2016-10-01 08:05 | Anesthesia Day of Surgery ---
Anesthesia Day of Surgery - Day of Surgery Patient Examined: Yes Patient H&P Reviewed: Yes Patient is NPO: Yes Cardiac Clearance: No
[2016-10-01] MEDS ORDERED: AMIDATE IV ONE (08:16)
--- NOTE | 2016-10-01 08:39 | Post Operative Note ---
Pre-op diagnosis: coffee ground emesis, cirrhosis Post-op diagnosis: other (enlarged gastric folds, esophagitis) Findings: EGD: Esophagus: mild esophagitis, otherwise unremarkable, no varices Stomach: enlarged gastric folds in the body of the stomacah, biopsied. Duodenum: mild erythema otherwise unremarkable Procedure: EGD with biopsies Anesthesia: MAC Surgeon: MARIAJOSE ANDRADE Estimated blood loss: minimal Pathology: list (Jar A - gastric fold biopsies) Specimen disposition: to lab Condition: stable Disposition: floor
--- NOTE | 2016-10-01 08:45 | Event Note ---
Date: 10/01/16 s/p EGD showing mild distal esophagitis, enlarged gastric folds, otherwise unremarkable. -follow-up pathology (gastric fold biopsies) -avoid NSAID medications -PPI before breakfast -follow up in GI clinic after discharge (3-4 weeks). colonoscopy can be done as outpatient if not up to date on screening Will sign off, please call with questions.
--- NOTE | 2016-10-01 10:15 | Discharge Summary ---
Providers - Providers Date of Admission: 09/29/16 14:01 Attending physician: CLIFTON HUNTER MD 09/29/16 14:27 Consult to Physician [CONS] Urgent Consulting Provider: EDWARDO RUIZ Reason For Exam: ESRD on hemodialysis Notified:: no 09/30/16 11:01 Consult to Physician [CONS] Routine Consulting Provider: VIRGINIA GONZALEZ Reason For Exam: elevated troponins Place consult to:: [facility] Notified:: a service Phone number called:: [phone] Was contact made?: Yes Primary care physician: ENTRY PROCESSOR Hospitalization Condition: Stable Procedures: 10/01/16: EGD showing mild distal esophagitis, enlarged gastric folds, otherwise unremarkable. -follow-up pathology (gastric fold biopsies) -avoid NSAID medications -PPI before breakfast -follow up in GI clinic after discharge (3-4 weeks). colonoscopy can be done as outpatient if not up to date on screening Hospital course: 56-year-old man with a past medical history of hypertension, poor compliance, type 2 diabetes which is insulin-dependent, systolic CHF, end-stage renal disease/CkD stage V on hemodialysis treatments , recent paracentesis with 3.7 L of ascitic fluid removed last week , who presents with abdominal pain, nausea/ vomiting 1. Abdominal Pain/Nausea and Vomiting Now resolved, most likely gastroenteritis or due to hyperosmolar states Follow-up abdominal ultrasound 2. Chronic systolic CHF continue renal diet, and fluid restriction recent echocardiogram June 2016 showed an EF of 25% Cardiological management patient 3. Type 2 diabetes/uncontrolled/insulin-dependent/diabetic hyperosmolarity poor compliance with insulin at home Glucose was greater than 500 on presentation, continue long-acting insulin, pre- meal insulin sliding scale Patient was reeducated again about improving compliance with his medications treatments and dialysis sessions 5. COPD Doesn't appear to be exacerbation at this time, continue inhalers 6. End-stage renal disease/chronic kidney disease stage V on hemodialysis Continue hemodialysis, nephrology input appreciated 7. DVT prophylaxis Heparin subcutaneous Disposition: DISCHARGED TO HOME OR SELFCARE Time spent for discharge: 35 minutes Core Measure Documentation - Palliative Care Palliative Care/ Comfort Measures: Not Applicable - Core Measures Any of the following diagnoses?: none Exam - Constitutional Vitals: Temp Pulse Resp BP Pulse Ox 97.8 F 67 19 148/81 100 10/01/16 08:35 10/01/16 09:05 10/01/16 09:05 10/01/16 09:05 10/01/16 09:05 General appearance: Present: no acute distress, well-nourished - EENT Eyes: Present: PERRL ENT: hearing intact, clear oral mucosa - Neck Neck: Present: supple, normal ROM - Respiratory Respiratory effort: normal Respiratory: bilateral: CTA - Cardiovascular Heart Sounds: Present: S1 & S2. Absent: rub, click - Extremities Extremities: pulses symmetrical, No edema Peripheral Pulses: within normal limits - Abdominal General gastrointestinal: Present: soft, non-tender, non-distended, normal bowel sounds Male genitourinary: Present: normal - Integumentary Integumentary: Present: clear, warm, dry - Musculoskeletal Musculoskeletal: gait normal, strength equal bilaterally - Psychiatric Psychiatric: appropriate mood/affect, intact judgment & insight - Neurologic Neurologic: CNII-XII intact, moves all extremities Plan Follow up with: PRIMARY CARE, [Primary Care Provider] - 3-5 Days MARIAJOSE ANDRADE MD [Staff Physician] - 7 Days Prescriptions: Pantoprazole [Protonix TAB] 20 mg PO QDAY #30 tablet.
--- NOTE | 2016-10-01 10:39 | Progress Note ---
Assessment and Plan Impression: * End stage renal disease * hematemesis * Elevated troponin * Dyspnea secondary to pulmonary edema * Abdominal ascites * Non-ischemic cardiomyopathy, LVEF 30% by LV gram ([facility] in Jun 2016) * Type II diabetes mellitus - uncontrolled * Hypertension * Anemia secondary to ESRD * Secondary hyperparathyroidism * Dietary noncompliance Plan: * Continue HD MWF * UF as tolerated * with troponin of 1.3, evaluated by cards * Cardiology recs noted - possible elective ICD in future * Importance of fluid restriction discussed with patient * Renal diet; fluid restriction 1000ml/day * Epogen for goal Hb 10-12 Subjective Date of service: 10/01/16 Principal diagnosis: coffee ground emesis, cirrhosis, ESRD, CHF Interval history: events noted, resting in bed Objective - Exam Narrative Exam: General appearance: well-developed, well-nourished EENT: mucous membranes moist Respiratory: Present: Clear to Ascultation Cardiology: regular, S1S2 Gastrointestinal: normal, no tenderness, no distended Neurologic: no focal deficit Musculoskeletal: other (no edema) Psychiatric: cooperative - Vital Signs Vital signs: Vital Signs - 12hr 10/01/16 10/01/16 10/01/16 00:00 04:00 04:30 Temperature 98.8 F 97.8 F Pulse Rate 73 Pulse Rate [ 70 70 Right Radial] Respiratory 20 18 Rate Blood Pressure Blood Pressure 132/79 141/79 [Right Radial Artery] O2 Sat by Pulse 93 96 Oximetry 10/01/16 10/01/16 10/01/16 07:54 07:59 08:35 Temperature 97.7 F 97.7 F 97.8 F Pulse Rate 68 68 75 Pulse Rate [ Right Radial] Respiratory 11 L 11 L 15 Rate Blood Pressure 168/91 168/91 172/90 Blood Pressure [Right Radial Artery] O2 Sat by Pulse 99 99 100 Oximetry 10/01/16 10/01/16 08:50 09:05 Temperature Pulse Rate 69 67 Pulse Rate [ Right Radial] Respiratory 18 19 Rate Blood Pressure 138/81 148/81 Blood Pressure [Right Radial Artery] O2 Sat by Pulse 100 100 Oximetry - Lab 09/29/16 11:26 09/29/16 11:14 Most recent lab results Calcium 8.7 mg/dL (8.4-10.2) 09/29/16 11:14 Phosphorus 2.70 mg/dL (2.5-4.5) 09/29/16 11:14 Magnesium 1.90 mg/dL (1.7-2.3) 09/29/16 11:14
--- NOTE | 2016-10-01 10:39 | Post Anesthesia Evaluation ---
- Post Anesthesia Evaluation Patient Participated: Yes Airway Patent: Yes Nausea/Vomiting: No Temp > 96.8F: Yes Pain Manageable: Yes Adequeate Hydration: Yes Anesthesia Complications: Yes Block Receding Appropriately: Not Applicable Patient on Ventilator: No
[2016-10-01] MEDS: DUONEB 0.5 MG-3 MG/3 ML SOLN IH SCH ×2 (11:15→19:15)
--- NOTE | 2016-10-01 11:52 | Operative Report ---
PROCEDURE: EGD PREOPERATIVE DIAGNOSES: Coffee-ground emesis, cirrhosis. POSTOPERATIVE DIAGNOSES: Mild esophagitis, enlarged gastric folds. ANESTHESIA: Monitored anesthesia care. COMPLICATIONS: No immediate complications. ESTIMATED BLOOD LOSS: Minimal. DESCRIPTION OF PROCEDURE: After consent was obtained, the patient was placed in the left lateral decubitus position. The standard upper Fujinon endoscope was advanced with direct vision through the mouth and advanced to the second portion of the duodenum without difficulty. The patient tolerated the procedure fairly well. The views of the mucosa were good. FINDINGS: 1. There was mild esophagitis in the lower third of the esophagus otherwise the esophagus appeared normal. No obvious signs of esophageal varices were seen. There was a moderate sized hiatal hernia. 2. There were enlarged gastric folds in the body and fundus of the stomach. Biopsies were obtained. Otherwise, the stomach appeared normal. 3. Mild erythematous mucosa in the duodenum, otherwise the duodenum appeared normal. IMPRESSION: 1. Mild distal esophagitis. 2. Enlarged gastric folds of unclear significance, biopsied. RECOMMENDATIONS: 1. Followup pathology. 2. Avoid NSAID medications. 3. PPI daily before breakfast. 4. The patient will need to follow up in GI Clinic after discharge and will need colonoscopy if he has not had screening procedure done in the past. JOB# [id number] ASHANTI/PAUL CUEVAS
--- NOTE | 2016-10-01 13:34 | Consultation ---
History of Present Illness Consult date: 10/01/16 Consult reason: elevated troponin History of present illness: This is a 56yr old man with end-stage renal disease on hemodialysis, a dilated nonischemic cardiomyopathy who underwent a cardiac catheterization just 3 months ago demonstrated normal coronaries, left ventricular ejection fraction 30 %. Of note, patient was discharged from this hospital 3 days ago following treatment for volume overload. He returned a day later and is now hospitalized with hematemesis. Cardiology consultation is requested for chronic elevated troponin in the setting of renal disease. Patient denies chest pain and shortness of breath. His presenting ECG shows a sinus rhythm. No acute ischemic changes. Medications and Allergies Allergies Allergy/AdvReac Type Severity Reaction Status Date / Time acetaminophen [From Percocet] Allergy Unknown Verified 06/27/16 18:49 morphine Allergy Unknown Verified 06/27/16 18:49 oxycodone Allergy Unknown Verified 06/27/16 18:49 oxycodone HCl [From Percocet] Allergy Unknown Verified 06/27/16 18:49 shellfish derived Allergy Unknown Verified 06/27/16 18:49 Home Medications Medication Instructions Recorded Confirmed Last Taken Type Aspirin [Aspirin TAB] 325 mg PO QDAY #30 tablet 09/28/16 09/29/16 Unknown Rx AtorvaSTATin [Lipitor] 40 mg PO QHS #30 tablet 09/28/16 09/29/16 Unknown Rx Carvedilol [Coreg] 12.5 mg PO BID #60 tablet 09/28/16 09/29/16 Unknown Rx Insulin Detemir [Levemir] 10 units SUB-Q QHS #1 vial 09/28/16 09/29/16 Unknown Rx Insulin Lispro [HumaLOG VIAL] 3 units SQ AC #1 vial 09/28/16 09/29/16 Unknown Rx Ipratropium/Albuterol Sulfate 1 ampul IH Q6HRT #30 ampul.neb 09/28/16 09/29/16 Unknown Rx [Duoneb 0.5 mg-3 mg/3 ml Soln] Lancets 1 each [facility] QID #100 each 09/28/16 09/29/16 Unknown Rx Lisinopril [Zestril TAB] 40 mg PO QDAY #30 tablet 09/28/16 09/29/16 Unknown Rx Syring W-Ndl,Disp,Insul,0.3 ml 1 each [facility] ACHS #100 disp.syrin 09/28/16 09/29/16 Unknown Rx [Insulin Syringe/Needle 0.3 ML] hydrALAZINE [Apresoline TAB] 50 mg PO Q8HR #120 tablet 09/28/16 09/29/16 Unknown Rx Pantoprazole [Protonix TAB] 20 mg PO QDAY #30 tablet. 10/01/16 Unknown Rx Active Meds: Active Medications Albuterol/Ipratropium (Duoneb 0.5 Mg-3 Mg/3 Ml Soln) 1 ampul IH BIDRT [facility] Last Admin: 10/01/16 11:15 Dose: 1 ampul Aspirin (Aspirin) 325 mg PO QDAY [facility] Last Admin: 09/30/16 13:06 Dose: 325 mg Atorvastatin Calcium (Lipitor) 40 mg PO QHS [facility] Last Admin: 09/30/16 21:41 Dose: 40 mg Carvedilol (Coreg) 12.5 mg PO BID [facility] Last Admin: 09/30/16 21:41 Dose: 12.5 mg Heparin Sodium (Porcine) (Heparin) 5,000 unit SUB-Q Q8HR [facility] Last Admin: 10/01/16 06:11 Dose: 5,000 unit Hydralazine HCl (Apresoline) 50 mg PO Q8HR [facility] Last Admin: 10/01/16 06:11 Dose: 50 mg Sodium Chloride (Nacl 0.9%) 100 mls @ 999 mls/hr IV EDGARDO PRN PRN Reason: Hypotension Last Admin: 10/01/16 07:53 Dose: 999 mls/hr Sodium Chloride (Nacl 0.9% 1000 Ml) 1,000 mls @ 50 mls/hr IV DIRECT [facility] Insulin Aspart (Novolog) 3 units SUB-Q [facility] Last Admin: 10/01/16 07:49 Dose: Not Given Insulin Aspart (Novolog) 0 units SUB-Q [facility] PRN Reason: Protocol Last Admin: 10/01/16 07:49 Dose: Not Given Insulin Detemir (Levemir) 10 units SUB-Q QHS [facility] Last Admin: 09/30/16 21:42 Dose: Not Given Lisinopril (Zestril) 40 mg PO QDAY [facility] Last Admin: 09/30/16 17:07 Dose: 40 mg Pantoprazole Sodium (Protonix) 40 mg IV BID [facility] Last Admin: 09/30/16 21:41 Dose: 40 mg Physical Examination Vital Signs Pulse Resp 74 23 09/29/16 10:50 09/29/16 10:50 General appearance: no acute distress HEENT: Positive: PERRL Neck: Positive: trachea midline Cardiac: Positive: Reg Rate and Rhythm Results 09/29/16 11:26 09/29/16 11:14 Assessment and Plan Hematemesis ESRD on HD Hypertension Nonischemic CMP [facility] 06/2016: no significant CAD, EF 30% Elevated troponin, chronic Recommend: Medical therapy for his cardiomyopathy including afterload reduction and beta blockers.
[2016-10-01] MEDS: COREG PO SCH ×2 (18:50→22:34)
[2016-10-01] MEDS: PROTONIX IV SCH ×2 (18:53→22:40)
[2016-10-01] MEDS: LEVEMIR SUB-Q SCH (22:41)
[2016-10-02] MEDS: DUONEB 0.5 MG-3 MG/3 ML SOLN IH SCH (07:43)
--- NOTE | 2016-10-02 08:37 | Progress Note ---
Assessment and Plan Assessment and plan: 56-year-old man with a past medical history of hypertension, poor compliance, type 2 diabetes which is insulin-dependent, systolic CHF, end-stage renal disease/CkD stage V on hemodialysis treatments , recent paracentesis with 3.7 L of ascitic fluid removed last week , who presents with abdominal pain, nausea/ vomiting 1. Abdominal Pain/Nausea and Vomiting Now resolved, most likely gastroenteritis or due to hyperosmolar states Follow-up abdominal ultrasound 2. Chronic systolic CHF continue renal diet, and fluid restriction recent echocardiogram June 2016 showed an EF of 25% Cardiological management patient 3. Type 2 diabetes/uncontrolled/insulin-dependent/diabetic hyperosmolarity poor compliance with insulin at home Glucose was greater than 500 on presentation, continue long-acting insulin, pre- meal insulin sliding scale Patient was reeducated again about improving compliance with his medications treatments and dialysis sessions 5. COPD Doesn't appear to be exacerbation at this time, continue inhalers 6. End-stage renal disease/chronic kidney disease stage V on hemodialysis Continue hemodialysis, nephrology input appreciated 7. DVT prophylaxis Heparin subcutaneous History Interval history: Bleeding he states the nausea and vomiting has resolved, he feels fine now. No complaints Hospitalist Physical - Physical exam Narrative exam: General: Patient appears well in no distress HEENT: MMM, EOMI cardiac: S1-S2 heard lungs: clear to auscultation, abdomen: soft, nontender, nondistended bowel sounds positive extremities: no edema clubbing or cyanosis Skin: no rash or lesion Neuro: no focal deficit Psych: appropriate behavior and mood, cognition intact - Constitutional Vitals: Temp Pulse Resp BP Pulse Ox 98.7 F 66 16 125/73 98 10/02/16 04:35 10/02/16 07:44 10/02/16 07:44 10/02/16 04:35 10/02/16 04:35 General appearance: Present: no acute distress, well-nourished Results - Labs CBC & Chem 7: 09/29/16 11:26 09/29/16 11:14 Labs: Laboratory Last Values WBC 6.0 K/mm3 (4.5-11.0) 09/29/16 11:26 RBC 4.15 M/mm3 (3.65-5.03) 09/29/16 11:26 Hgb 11.0 gm/dl (11.8-15.2) L 09/29/16 11:26 Hct 34.8 % (35.5-45.6) L 09/29/16 11:26 MCV 84 fl (84-94) 09/29/16 11:26 MCH 27 pg (28-32) L 09/29/16 11:26 MCHC 32 % (32-34) 09/29/16 11:26 RDW 20.0 % (13.2-15.2) H 09/29/16 11:26 Plt Count 140 K/mm3 (140-440) 09/29/16 11:26 Lymph % (Auto) 9.1 % (13.4-35.0) L 09/29/16 11:26 [place] % (Auto) 7.8 % (0.0-7.3) H 09/29/16 11:26 Eos % (Auto) 8.0 % (0.0-4.3) H 09/29/16 11:26 Baso % (Auto) 0.4 % (0.0-1.8) 09/29/16 11:26 Lymph # 0.5 K/mm3 (1.2-5.4) L 09/29/16 11:26 [place] # 0.5 K/mm3 (0.0-0.8) 09/29/16 11:26 Eos # 0.5 K/mm3 (0.0-0.4) H 09/29/16 11:26 Baso # 0.0 K/mm3 (0.0-0.1) 09/29/16 11:26 Seg Neutrophils % 74.7 % (40.0-70.0) H 09/29/16 11:26 Seg Neutrophils # 4.5 K/mm3 (1.8-7.7) 09/29/16 11:26 PT 17.6 Sec. (12.2-14.9) H 09/29/16 11:14 INR 1.45 (0.87-1.13) H 09/29/16 11:14 APTT 49.8 Sec. (24.2-36.6) H 09/29/16 11:14 Sodium 133 mmol/L (137-145) L 09/29/16 11:14 Potassium 5.0 mmol/L (3.6-5.0) 09/29/16 11:14 Chloride 89.6 mmol/L (98-107) L 09/29/16 11:14 Carbon Dioxide 28 mmol/L (22-30) 09/29/16 11:14 Anion Gap 20 mmol/L 09/29/16 11:14 BUN 47 mg/dL (9-20) H 09/29/16 11:14 Creatinine 6.3 mg/dL (0.8-1.5) H 09/29/16 11:14 Estimated GFR 11 ml/min 09/29/16 11:14 BUN/Creatinine Ratio 7.46 % 09/29/16 11:14 Glucose 398 mg/dL (75-100) H 09/29/16 11:14 POC Glucose 230 (70-105) H 10/01/16 21:42 Lactic Acid 0.80 mmol/L (0.7-2.0) 09/29/16 12:12 Calcium 8.7 mg/dL (8.4-10.2) 09/29/16 11:14 Phosphorus 2.70 mg/dL (2.5-4.5) 09/29/16 11:14 Magnesium 1.90 mg/dL (1.7-2.3) 09/29/16 11:14 Ammonia 47.0 umol/L (25-60) 09/29/16 12:12 Total Creatine Kinase 766 units/L (55-170) H 09/29/16 11:14 CK-MB (CK-2) 19.1 ng/mL (0.0-4.0) H 09/29/16 11:14 CK-MB (CK-2) Rel Index 2.4 (0-4) 09/29/16 11:14 Troponin T 1.290 ng/mL (0.00-0.029) H* 09/29/16 17:34 NT-Pro-B Natriuret Pep > 50848 pg/mL (0-900) H 09/29/16 11:14 Triglycerides 43 mg/dL (2-149) 09/29/16 11:14 Cholesterol 88 mg/dL (50-199) 09/29/16 11:14 LDL Cholesterol Direct 40 mg/dL (50-130) L 09/29/16 11:14 HDL Cholesterol 40 mg/dL (40-59) 09/29/16 11:14 Cholesterol/HDL Ratio 2.20 % 09/29/16 11:14 Amylase 113 units/L (27-131) 09/29/16 11:14 Lipase 62 units/L (13-60) H 09/29/16 11:14 Blood Type B POSITIVE 09/29/16 11:45 Antibody Screen TNR 09/29/16 11:45 MARYCHUY Antibody Screen Negative 09/29/16 11:45
[2016-10-02 09:50] VITALS: BP 161/80
--- NOTE | 2016-10-02 11:49 | Progress Note ---
Assessment and Plan Impression: * End stage renal disease * hematemesis * Elevated troponin * Dyspnea secondary to pulmonary edema * Abdominal ascites * Non-ischemic cardiomyopathy, LVEF 30% by LV gram ([facility] in Jun 2016) * Type II diabetes mellitus - uncontrolled * Hypertension * Anemia secondary to ESRD * Secondary hyperparathyroidism * Dietary noncompliance Plan: * Continue HD tthsat as outpatient, was suppose to dc yesterday to allow for patient to go to HD today * UF as tolerated * with troponin of 1.3, evaluated by cards * Cardiology recs noted - possible elective ICD in future * Importance of fluid restriction discussed with patient * Renal diet; fluid restriction 1000ml/day * Epogen for goal Hb 10-12 Subjective Date of service: 10/02/16 Principal diagnosis: coffee ground emesis, cirrhosis, ESRD, CHF Interval history: events noted, resting in bed Objective - Exam Narrative Exam: General appearance: well-developed, well-nourished EENT: mucous membranes moist Respiratory: Present: Clear to Ascultation Cardiology: regular, S1S2 Gastrointestinal: normal, no tenderness, no distended Neurologic: no focal deficit Musculoskeletal: other (no edema) Psychiatric: cooperative - Vital Signs Vital signs: Vital Signs - 12hr 10/02/16 10/02/16 10/02/16 01:43 04:35 07:44 Temperature 97.5 F L 98.7 F Pulse Rate [ 66 Posterior Bilateral Throughout] Pulse Rate [ 69 65 Right Radial] Respiratory 18 20 Rate Respiratory Rate [Chest] Respiratory 16 Rate [Posterior Bilateral Throughout] Blood Pressure 156/86 125/73 [Right Radial Artery] O2 Sat by Pulse 97 98 Oximetry 10/02/16 10/02/16 10/02/16 08:00 09:49 10:00 Temperature 98.5 F Pulse Rate [ 64 Posterior Bilateral Throughout] Pulse Rate [ 64 68 Right Radial] Respiratory 16 20 Rate Respiratory 20 Rate [Chest] Respiratory 16 Rate [Posterior Bilateral Throughout] Blood Pressure 161/80 [Right Radial Artery] O2 Sat by Pulse 100 96 Oximetry - Lab 09/29/16 11:26 09/29/16 11:14 Most recent lab results Calcium 8.7 mg/dL (8.4-10.2) 09/29/16 11:14 Phosphorus 2.70 mg/dL (2.5-4.5) 09/29/16 11:14 Magnesium 1.90 mg/dL (1.7-2.3) 09/29/16 11:14
[2016-10-03] MEDS ORDERED: PROTONIX PO SCH (10:00)
== END 2016-10-02 11:59 | disposition home health service (06) | DRG 637 ==
LOC: ED 10:36 → 4A 14:01
PROVIDERS: ADMIT Internal Medicine; ATTEND Internal Medicine
PROC: 5A1D00Z (ICD-10-PCS; 2016-09-29)
PROC: 0DB68ZX Excision of Stomach, Via Natural or Artificial Opening Endoscopic, Diagnostic (ICD-10-PCS; principal; 2016-10-01)
DX: E11.00 Type 2 diabetes mellitus with hyperosmolarity without nonketotic hyperglycemic-hyperosmolar coma (NKHHC) (principal); N18.6 End stage renal disease; I42.9 Cardiomyopathy, unspecified; I13.2 Hypertensive heart and chronic kidney disease with heart failure and with stage 5 chronic kidney disease, or end stage renal disease; I50.22 Chronic systolic (congestive) heart failure; K52.9 Noninfective gastroenteritis and colitis, unspecified; J44.9 Chronic obstructive pulmonary disease, unspecified; M19.90 Unspecified osteoarthritis, unspecified site; F32.9 Major depressive disorder, single episode, unspecified; G47.30 Sleep apnea, unspecified; E11.22 Type 2 diabetes mellitus with diabetic chronic kidney disease; D63.1 Anemia in chronic kidney disease; K74.60 Unspecified cirrhosis of liver; E78.5 Hyperlipidemia, unspecified; F17.200 Nicotine dependence, unspecified, uncomplicated; E11.51 Type 2 diabetes mellitus with diabetic peripheral angiopathy without gangrene; K20.9 Esophagitis, unspecified; Z91.11 Patient's noncompliance with dietary regimen; Z99.2 Dependence on renal dialysis; Z91.15 Patient's noncompliance with renal dialysis; Z88.6 Allergy status to analgesic agent; Z91.013 Allergy to seafood; Z88.8 Allergy status to other drugs, medicaments and biological substances; Z82.49 Family history of ischemic heart disease and other diseases of the circulatory system; Z98.61 Coronary angioplasty status
CPT/HCPCS: 36415; 71010; 76700; 80048; 80061; 82140; 82150; 82550; 82553; 82962; 83690; 83735; 83880; 84100; 84484; 85025; 85610; 85730; 86850; 86900; 86901; 88305; 88342; 93005; 93010; 94640; 96374; 96375; 99406; A9270-GY; C9113; J1644; J1815; J1818; J2405; J2704; J2765; J7030

== ENCOUNTER 2016-10-29 06:14 | Day surgery (SDC) | payer MEDICARE ==
[2016-10-29 10:44] VITALS: BP 160/92
--- NOTE | 2016-10-29 11:14 | Ultrasound Report ---
ULTRASOUND PARACENTESIS HISTORY: Cirrhosis, ascites. DESCRIPTION OF PROCEDURE: Informed consent was obtained. Sterile technique was utilized. 1% lidocaine for skin anesthesia. Using ultrasound guidance, a 5 [place] centesis needle was advanced into the left lower quadrant peritoneal space. There was spontaneous return of slightly cloudy yellow fluid. 2.4 L of fluid was aspirated and discarded. The patient reported minor discomfort at the paracentesis site during the exam. Impression: Successful ultrasound guided paracentesis as described.
--- NOTE | 2016-10-29 11:30 | Short Stay Summary ---
Short Stay Documentation Date of service: 10/29/16 Narrative H&P: ascites - History H&P: obtained from office Past Medical History: ESRD, liver disease - Allergies and Medications Current Medications: Allergies acetaminophen [From Percocet] Allergy (Verified 06/27/16 18:49) Unknown morphine Allergy (Verified 06/27/16 18:49) Unknown oxycodone Allergy (Verified 06/27/16 18:49) Unknown oxycodone HCl [From Percocet] Allergy (Verified 06/27/16 18:49) Unknown oxycodone terephthalate [From Percodan] Allergy (Unverified 10/29/16 06:16) Itching shellfish derived Allergy (Verified 06/27/16 18:49) Unknown Home Medications Medication Instructions Recorded Confirmed Last Taken Type AtorvaSTATin [Lipitor] 40 mg PO QHS #30 tablet 09/28/16 10/29/16 10/29/16 04:30 Rx Carvedilol [Coreg] 12.5 mg PO BID #60 tablet 09/28/16 10/29/16 09/29/16 Rx Lisinopril [Zestril TAB] 40 mg PO QDAY #30 tablet 09/28/16 10/29/16 10/29/16 04: 30 Rx Syring W-Ndl,Disp,Insul,0.3 ml 1 each ACHS #100 disp.syrin 09/28/16 10/29/16 10/28/16 Rx [Insulin Syringe/Needle 0.3 ML] hydrALAZINE [Apresoline TAB] 50 mg PO Q8HR #120 tablet 09/28/16 10/29/16 04:30 Rx Pantoprazole [Protonix TAB] 20 mg PO QDAY #30 tablet. 10/01/16 10/29/16 04:30 Rx Aspirin [Aspirin TAB] 81 mg PO QDAY 10/29/16 10/29/16 10/29/16 04:30 History Insulin Detemir [Levemir] 13 units SUB-Q QHS 10/29/16 10/29/16 10/28/16 History - Physical exam General appearance: no acute distress Gastrointestinal: distended - Brief post op/procedure progress note Date of procedure: 10/29/16 Pre-op diagnosis: ascites Post-op diagnosis: same Procedure: US paracentesis Anesthesia: local Surgeon: JASWANT LENTZ Estimated blood loss: none Pathology: none Specimen disposition: discarded Condition: stable - Disposition Condition at discharge: Good Disposition: DC-01 TO HOME OR SELFCARE Short Stay Discharge Plan Follow up with: ANTONIO BECMKAN JR, MD [Primary Care Provider] - 7 Days
== END 2016-10-29 11:10 | disposition home or self-care (01) ==
LOC: OPU 06:14 → EDSTATUS 07:30 → OPU 11:10
PROVIDERS: ATTEND Internal Medicine Gastroenterology
DX: R18.8 Other ascites (principal); K74.60 Unspecified cirrhosis of liver
CPT/HCPCS: 49083

== ENCOUNTER 2016-11-25 04:45 | Inpatient (IN) | payer MEDICARE ==
[2016-11-25] MEDS ORDERED: ZOFRAN IV ONE (05:28)
[2016-11-25 05:32] LABS: Basophils % (Auto) 0.4 % (0.0-1.8); Hematocrit 25.4 % (35.5-45.6); Mean Corpuscular HGB Conc 32 % (32-34); Mean Corpuscular Hemoglobin 27 pg (28-32); Mean Corpuscular Volume 85 fl (84-94); Platelet Count 275 K/mm3 (140-440); Red Blood Count 3.01 M/mm3 (3.65-5.03); White Blood Count 7.2 K/mm3 (4.5-11.0)
[2016-11-25 05:43] LABS: INR 1.15 (0.87-1.13); Partial Thromboplastin Time 46.1 Sec. (24.2-36.6)
[2016-11-25 05:45] LABS: Creatine Kinase MB 22.4 ng/mL (0.0-4.0)
[2016-11-25 05:48] LABS: BUN/Creatinine Ratio 4.52; Calcium 7.9 mg/dL (8.4-10.2); Chloride 96.9 mmol/L (98-107); Potassium 4.2 mmol/L (3.6-5.0)
[2016-11-25] MEDS ORDERED: DUONEB *Not for PRN Use IH ONE (06:20)
--- NOTE | 2016-11-25 06:26 | Emergency Department Report ---
ED Chest Pain HPI - General Chief Complaint: Chest Pain Stated Complaint: CHEST PAIN Time Seen by Provider: 11/25/16 06:06 Source: patient, EMS Mode of arrival: Stretcher Limitations: Physical Limitation - History of Present Illness Initial Comments: This is a 56-year-old -[place] male presents to the emergency department complaint of midsternal chest discomfort and/or "indigestion"along with shortness of breath, next dry and productive cough and some nausea with vomiting since yesterday around 3 PM after the patient completed his dialysis. He took some [place] for his discomfort without any relief. He has a past medical history of arthritis, remote prostate cancer, CHF, insulin-dependent diabetes, GERD, hypertension and end-stage renal disease on Saturday// Saturday. There is also a history of seizures, sleep apnea and hyperlipidemia. Patient's family practice medical doctor is Dr. Mari and he has a PCP but cannot currently remember their name. He has a tobacco smoker but denies any illicit drug use or abuse. No recent travel or sick contacts at home. Severity scale (0 -10): 10 - Related Data Home Medications Medication Instructions Recorded Confirmed Last Taken Aspirin [Aspirin TAB] 81 mg PO QDAY 10/29/16 11/08/16 11/08/16 Previous Rx's Medication Instructions Recorded Last Taken Type AtorvaSTATin [Lipitor] 40 mg PO QHS #30 tablet 09/28/16 11/08/16 Rx Lisinopril [Zestril TAB] 40 mg PO QDAY #30 tablet 09/28/16 11/08/16 Rx Syring W-Ndl,Disp,Insul,0.3 ml 1 each [facility] #100 disp.syrin 09/28/16 11/08/16 Rx [Insulin Syringe/Needle 0.3 ML] hydrALAZINE [Apresoline TAB] 50 mg PO Q8HR #120 tablet 09/28/16 11/08/16 Rx Carvedilol [Coreg] 25 mg PO BID 60 Days 11/14/16 Unknown Rx Insulin Detemir [Levemir] 5 units SUB-Q QHS 30 Days 11/14/16 11/08/16 Rx Allergies Allergy/AdvReac Type Severity Reaction Status Date / Time acetaminophen [From Percocet] Allergy Unknown Verified 11/08/16 11:28 morphine Allergy Unknown Verified 11/08/16 11:28 oxycodone Allergy Unknown Verified 11/08/16 11:28 oxycodone HCl [From Percocet] Allergy Unknown Verified 11/08/16 11:28 oxycodone terephthalate Allergy Itching Verified 11/08/16 11:28 [From Percodan] shellfish derived Allergy Unknown Verified 11/08/16 11:28 Heart Score - HEART Score History: Slightly suspicious EKG: Non-specific Age: 45-65 Risk factors: > 3 risk factors or hx of atherosclerotic disease Troponin: > 3x normal limit HEART Score: 6 - Critical Actions Critical Actions: 4-6 pts:12-16.6% risk of adverse cardiac event. Should be admitted ED Review of Systems ROS: Stated complaint: CHEST PAIN Other details as noted in HPI Comment: All other systems reviewed and negative Constitutional: denies: chills, fever Eyes: denies: eye pain, eye discharge, vision change ENT: denies: ear pain, throat pain Respiratory: cough, shortness of breath, wheezing Cardiovascular: chest pain. denies: palpitations Gastrointestinal: nausea, vomiting Genitourinary: denies: urgency, dysuria Musculoskeletal: denies: back pain, joint swelling, arthralgia Skin: denies: rash, lesions Neurological: denies: headache, weakness, paresthesias ED Past Medical Hx - Past Medical History Previous Medical History?: Yes Hx Hypertension: Yes (1996) Hx Congestive Heart Failure: Yes Hx Diabetes: Yes (IDDM) Hx GERD: Yes Hx Renal Disease: Yes ( / / SAT) Hx of Cancer: Yes (prostrate) Hx Arthritis: Yes Hx Seizures: Yes Hx Psychiatric Treatment: Yes (depression) Hx COPD: (denies) Additional medical history: sleep apnea, erectile dysfunction, dialysis, back pain, high cholesterol. neuropathy - Surgical History Past Surgical History?: Yes Additional Surgical History: biopsy on prostate, fistula left arm,. HERNIA REPAIR - Social History Smoking Status: Never Smoker - Medications Home Medications: Home Medications Medication Instructions Recorded Confirmed Last Taken Type AtorvaSTATin [Lipitor] 40 mg PO QHS #30 tablet 09/28/16 11/08/16 11/08/16 Rx Lisinopril [Zestril TAB] 40 mg PO QDAY #30 tablet 09/28/16 11/08/16 11/08/16 Rx Syring W-Ndl,Disp,Insul,0.3 ml 1 each ACHS #100 disp.syrin 09/28/16 11/08/16 11/08/16 Rx [Insulin Syringe/Needle 0.3 ML] hydrALAZINE [Apresoline TAB] 50 mg PO Q8HR #120 tablet 09/28/16 11/08/16 Rx Aspirin [Aspirin TAB] 81 mg PO QDAY 10/29/16 11/08/16 11/08/16 History Carvedilol [Coreg] 25 mg PO BID 60 Days 11/14/16 Unknown Rx Insulin Detemir [Levemir] 5 units SUB-Q QHS 30 Days 11/14/16 11/08/16 11/08/16 Rx ED Physical Exam - General Limitations: Physical Limitation - Other Other exam information: GENERAL: The patient is well-developed well-nourished. HEENT: Normocephalic. Atraumatic. Extraocular motions are intact. Patient has moist mucous membranes. Pupils equal reactive to light bilaterally. NECK: Supple. Trachea is midline. CHEST/LUNGS: Mild wheezing throughout the chest. A dry cough heard with coughing fits. There is no tachypnea or accessory muscle use. There is no respiratory distress noted. HEART/CARDIOVASCULAR: Regular. There is no tachycardia. There is no gallop rub or murmur. ABDOMEN: Abdomen is soft, nontender. Patient has normal bowel sounds. There is no abdominal distention. SKIN: Skin is warm and dry. NEURO: The patient is awake, alert, and oriented. The patient is cooperative. The patient has no focal neurologic deficits. The patient has normal speech. MUSCULOSKELETAL: There is no tenderness or deformity. There is no limitation range of motion. There is no evidence of acute injury. ED Course Vital Signs 11/25/16 11/25/16 11/25/16 04:46 04:50 04:56 Temperature Pulse Rate 84 82 85 Pulse Rate [ Posterior Bilateral Throughout] Respiratory 15 22 Rate Respiratory Rate [Posterior Bilateral Throughout] Blood Pressure 148/80 O2 Sat by Pulse 100 100 98 Oximetry 11/25/16 11/25/16 11/25/16 05:00 05:10 05:20 Temperature Pulse Rate 85 82 83 Pulse Rate [ Posterior Bilateral Throughout] Respiratory 21 19 Rate Respiratory Rate [Posterior Bilateral Throughout] Blood Pressure O2 Sat by Pulse 100 100 99 Oximetry 11/25/16 11/25/16 11/25/16 05:30 05:36 05:41 Temperature Pulse Rate 80 79 Pulse Rate [ Posterior Bilateral Throughout] Respiratory 22 16 Rate Respiratory Rate [Posterior Bilateral Throughout] Blood Pressure 174/91 174/91 O2 Sat by Pulse 98 100 Oximetry 11/25/16 11/25/16 11/25/16 05:51 06:00 06:11 Temperature Pulse Rate 81 82 83 Pulse Rate [ Posterior Bilateral Throughout] Respiratory 18 17 17 Rate Respiratory Rate [Posterior Bilateral Throughout] Blood Pressure 170/97 173/98 173/98 O2 Sat by Pulse 100 100 100 Oximetry 11/25/16 11/25/16 11/25/16 06:21 06:49 07:01 Temperature Pulse Rate 81 80 81 Pulse Rate [ Posterior Bilateral Throughout] Respiratory 14 20 16 Rate Respiratory Rate [Posterior Bilateral Throughout] Blood Pressure 188/113 173/98 180/99 O2 Sat by Pulse 100 97 100 Oximetry 11/25/16 11/25/16 11/25/16 07:10 07:28 07:30 Temperature 98.2 F Pulse Rate 82 Pulse Rate [ 79 Posterior Bilateral Throughout] Respiratory 16 Rate Respiratory 18 Rate [Posterior Bilateral Throughout] Blood Pressure 180/95 O2 Sat by Pulse 100 Oximetry 11/25/16 11/25/16 11/25/16 07:46 07:59 08:00 Temperature Pulse Rate 82 85 Pulse Rate [ 84 Posterior Bilateral Throughout] Respiratory 17 Rate Respiratory 20 Rate [Posterior Bilateral Throughout] Blood Pressure 180/95 154/77 O2 Sat by Pulse 98 Oximetry 11/25/16 11/25/16 11/25/16 08:31 09:00 09:30 Temperature Pulse Rate 88 90 92 H Pulse Rate [ Posterior Bilateral Throughout] Respiratory 19 17 16 Rate Respiratory Rate [Posterior Bilateral Throughout] Blood Pressure 144/83 145/84 158/85 O2 Sat by Pulse 99 98 99 Oximetry 11/25/16 11/25/16 11/25/16 10:09 10:30 11:00 Temperature Pulse Rate 103 H 86 87 Pulse Rate [ Posterior Bilateral Throughout] Respiratory 14 17 14 Rate Respiratory Rate [Posterior Bilateral Throughout] Blood Pressure 165/85 162/84 150/80 O2 Sat by Pulse 100 100 98 Oximetry 11/25/16 11/25/16 11:31 12:00 Temperature Pulse Rate 88 Pulse Rate [ Posterior Bilateral Throughout] Respiratory 14 Rate Respiratory Rate [Posterior Bilateral Throughout] Blood Pressure 144/76 156/93 O2 Sat by Pulse 99 99 Oximetry MELECIO score - Melecio Score Age > 65: (0) No Aspirin use within the Past 7 Days: (0) No 3 or more CAD Risk Factors: (1) Yes 2 or more Angina events in past 24 hrs: (1) Yes Known CAD with more than 50% Stenosis: (0) No Elevated Cardiac Markers: (1) Yes ST Deviation Greater than 0.5mm: (0) No MELECIO Score: 3 ED Medical Decision Making - Lab Data Result diagrams: 11/25/16 05:08 11/25/16 05:08 - EKG Data -: EKG Interpreted by Me EKG shows normal: sinus rhythm, axis, intervals (prolonged TX interval indicating first-degree AV block), QRS complexes, ST-T waves Rate: normal - EKG Data When compared to previous EKG there are: no significant change Interpretation: unchanged when compared t (09/29/16) - Radiology Data Radiology results: image reviewed interpreted by me: Chest x-ray shows pulmonary vascular congestion and cardiomegaly. No obvious pneumonia. - Medical Decision Making 56-year-old male presents with chest pain, shortness of breath, nausea and vomiting since after dialysis yesterday. First 2 troponins positive but trending down however patient is on dialysis. Chest x-ray shows some mild vascular congestion but no overt pleural effusions. D-dimer was very elevated so attempted a VQ scan the patient was having orthopnea and unable to complete this. There is no hyperkalemia. The patient will be admitted to the hospital for further evaluation and has been accepted for admission by the hospitalist service - Differential Diagnosis TN, PE, CHF, pneumonia Critical Care Time: No Critical care attestation.: If time is entered above; I have spent that time in minutes in the direct care of this critically ill patient, excluding procedure time. ED Disposition Clinical Impression: Elevated troponin I level, ESRD (end stage renal disease) on dialysis, Shortness of breath Chest pain Qualifiers: Chest pain type: unspecified Qualified Code(s): R07.9 - Chest pain, unspecified Acute exacerbation of CHF (congestive heart failure) Qualifiers: Congestive heart failure type: unspecified congestive heart failure type Qualified Code(s): I50.9 - Heart failure, unspecified Disposition: OP ADMIT IP TO THIS HOSP Is pt being admited?: Yes Condition: Stable
[2016-11-25] MEDS ORDERED: APRESOLINE IV ONE (06:52)
--- NOTE | 2016-11-25 09:27 | XRay Report ---
AP CHEST : 11/25/16 04:45:00 CLINICAL: Chest pain. COMPARISON:11/09/16 FINDINGS: New patchy and diffuse opacities in the right lung base since the last exam. The right upper lobe is clear. The left lung is clear. Normal heart and pulmonary vessels. IMPRESSION: Interval development of right basal pneumonia.
[2016-11-25] MEDS ORDERED: ZOFRAN ONE (10:14)
--- NOTE | 2016-11-25 13:14 | History and Physical Report ---
History of Present Illness Date of examination: 11/25/16 Date of admission: 11/25/16 11:20 Chief complaint: Shortness of breath History of present illness: Patient is a 56-year-old man with a history of ESRD on hemodialysis TTS, CHF, hypertension, dyslipidemia, type 2 diabetes mellitus, COPD, tobacco dependency, alcohol abuse with hepatitis and recurrent ascites status post 2 paracentesis last month who presents to emergency department with complaint of moderate nonradiating, constant substernal chest pains described as indigestion with shortness of breath, productive cough with chills, no fever and intermittent nausea with vomiting since yesterday around 3 PM after the patient completed his dialysis. He took some Hailey-Dutch John for his chest discomfort without any relief. . Patient was just discharged from here 11/14/2016. Chest x-ray read as right basilar pneumonia. Past medical history: As HPI Past surgical history: Left upper extremity AV fistula, paracentesis 2 Social history: Tobacco dependency, counseled on stopping, alcohol abuse last alcoholic drink including beer was 2 months ago, full code related to drugs Family history: He doesn't know beacause he was adopted ROS: as HPI and all other ROS reviewed and negative. Medications and Allergies Allergies Allergy/AdvReac Type Severity Reaction Status Date / Time acetaminophen [From Percocet] Allergy Unknown Verified 11/08/16 11:28 morphine Allergy Unknown Verified 11/08/16 11:28 oxycodone Allergy Unknown Verified 11/08/16 11:28 oxycodone HCl [From Percocet] Allergy Unknown Verified 11/08/16 11:28 oxycodone terephthalate Allergy Itching Verified 11/08/16 11:28 [From Percodan] shellfish derived Allergy Unknown Verified 11/08/16 11:28 Home Medications Medication Instructions Recorded Confirmed Last Taken Type AtorvaSTATin [Lipitor] 40 mg PO QHS #30 tablet 09/28/16 11/08/16 11/08/16 Rx Lisinopril [Zestril TAB] 40 mg PO QDAY #30 tablet 09/28/16 11/08/16 11/08/16 Rx Syring W-Ndl,Disp,Insul,0.3 ml 1 each [facility] #100 disp.syrin 09/28/16 11/08/16 11/08/16 Rx [Insulin Syringe/Needle 0.3 ML] hydrALAZINE [Apresoline TAB] 50 mg PO Q8HR #120 tablet 09/28/16 11/08/16 Rx Aspirin [Aspirin TAB] 81 mg PO QDAY 10/29/16 11/08/16 11/08/16 History Carvedilol [Coreg] 25 mg PO BID 60 Days 11/14/16 Unknown Rx Insulin Detemir [Levemir] 5 units SUB-Q QHS 30 Days 11/14/16 11/08/16 11/08/16 Rx Active Meds: Active Medications Piperacillin Sod/Tazobactam Sod (Zosyn/Ns 2.25 Gm/50ml) 2.25 gm in 50 mls @ 100 mls/hr IV Q8HR [facility] PRN Reason: Protocol Exam - Physical Exam Narrative exam: GEN: Ill-appearing NAD, AWAKE, ALERT, ORIENTATED x 3 HEENT: NCAT, PERRL, EOMI, OP CLEAR NECK: SUPPLE, NO THYROMEGALY, NO JVD, NO LAD CVS: Regular tachycardia, NORMAL S1S2 LUNGS/CHEST: CTA B, NORMAL CHEST EXPANSION B, GOOD AIR ENTRY B ABD: SOFT, distended but nontender GBS, NO REBOUND OR GUARDING EXT/SKIN: Dependent EDEMA OR RASH MSK: FROM X 4 EXTREMITIES NEURO: CN 2-12 GROSSLY INTACT, NO FOCAL DEFICITS PSY: CALM - Constitutional Vitals: Temp Pulse Resp BP Pulse Ox 98.2 F 88 14 156/93 99 11/25/16 07:10 11/25/16 11:31 11/25/16 11:31 11/25/16 12:00 11/25/16 12:00 Results - Labs CBC & Chem 7: 11/25/16 05:08 11/25/16 05:08 Labs: Abnormal lab results 11/25/16 Range/Units Unknown NT-Pro-B Natriuret Pep 39803 H (0-900) pg/mL Assessment and Plan Patient is a 56-year-old man with a history of ESRD on hemodialysis TTS, CHF, hypertension, dyslipidemia, type 2 diabetes mellitus, COPD, chronic troponemia, tobacco dependency, alcohol abuse with hepatitis and recurrent ascites status post 2 paracentesis last month who presents to emergency department with complaint of moderate nonradiating, constant substernal chest pains described as indigestion with shortness of breath, productive cough with chills, no fever and intermittent nausea with vomiting since yesterday around 3 PM after the patient completed his dialysis. He took some Hailey-Dutch John for his chest discomfort without any relief. . Patient was just discharged from here 2016. Chest x-ray read as right basilar pneumonia. Patient unable to tolerate VQ scan, he couldn't lie flat. -Sepsis RLL Aspiration Pneumonia, as evident by RR 22 and HR 103 poa: treat with iv levaquin and iv zosyn since recent hospitalization, renal dose, get blood ctx,consulted ID -ESRD needing hemodialysis: consulted Nephrology -Chest pains: 10/01/16 Dr. Campbell Claims Customer Service Representative's note: "This patient has undergone extensive recent cardiac ischemia evaluation. In response to similar level of troponin elevation two months ago, he underwent a cardiac catheterization. Cardiac catheterization June 2016 him on straighten in normal coronary arteries, but a nonischemic cardiomyopathy, ejection fraction 30 %. A cardiogram about time also confirmed a severe cardiomyopathy, ejection fraction 25-30%, with moderate concentric left ventricular hypertrophy." We will reconsult cardiology, history is atypical, will treat with acid reflux suppression -Ascites with alcoholic hepatitis versus cirrhosis: Consulted GI may need another paracentesis -Chronic systolic heart failure, baseline proBNP is usually greater than 70,000 : Continue to monitor -Uncontrolled diabetes mellitus: Add sliding scale insulin
[2016-11-25] MEDS ORDERED: D50W (25GM) IV PRN (13:42)
[2016-11-25] MEDS ORDERED: AMBIEN PO PRN (13:44)
[2016-11-25] MEDS ORDERED: ZOFRAN IV PRN (13:44)
[2016-11-25] MEDS ORDERED: DULCOLAX PR PRN (13:45)
[2016-11-25] MEDS ORDERED: LEVAQUIN 750MG/150ML 750 MG/150 ML BAG IV ONE (14:00)
[2016-11-25] MEDS ORDERED: LEVAQUIN 750MG/150ML 750 MG/150 ML BAG IV SCH (14:00)
[2016-11-25] MEDS: ZOSYN/NS 2.25 GM/50ML 2.25 GM/50 ML BAG IV SCH ×2 (17:59→21:07)
[2016-11-25] MEDS: NOVOLOG SUB-Q SCH ×2 (18:00→22:00)
[2016-11-25] MEDS ORDERED: NITROSTAT SL PRN (19:01)
[2016-11-25] MEDS: REGLAN IV PRN (22:00)
[2016-11-25] MEDS: ALUM-MAG HYDROX-SIMETH 200-200-20MG/5ML PO PRN (22:02)
[2016-11-26] MEDS: ZOSYN/NS 2.25 GM/50ML 2.25 GM/50 ML BAG IV SCH ×2 (01:53→10:38)
[2016-11-26] MEDS: ALUM-MAG HYDROX-SIMETH 200-200-20MG/5ML PO PRN ×2 (01:57→06:40)
[2016-11-26] MEDS: REGLAN IV PRN (06:40)
[2016-11-26 06:51] LABS: Hematocrit 26.5 % (35.5-45.6); Hemoglobin 8.4 gm/dl (11.8-15.2); Mean Corpuscular HGB Conc 32 % (32-34); Mean Corpuscular Hemoglobin 27 pg (28-32); Mean Corpuscular Volume 83 fl (84-94); Platelet Count 303 K/mm3 (140-440); Red Blood Count 3.18 M/mm3 (3.65-5.03); White Blood Count 10.4 K/mm3 (4.5-11.0)
[2016-11-26 07:02] LABS: BUN/Creatinine Ratio 5.37; Calcium 7.9 mg/dL (8.4-10.2); Chloride 92.8 mmol/L (98-107); Magnesium 2.2 mg/dL (1.7-2.3); Potassium 4.8 mmol/L (3.6-5.0)
[2016-11-26] MEDS: NOVOLOG SUB-Q SCH ×4 (08:12→22:13)
--- NOTE | 2016-11-26 09:03 | Consultation ---
History of Present Illness - Reason for Consult Consult date: 11/26/16 renal failure - History of Present Illness This 56 yr old AA male with ESRD,DM,HTN, Chronic liver disease, cardiomyopathy- LVEF-30% presents with weakness, vomiting blood. Pt says that he was throwing up blood-5-6 times yesterday. C/O constipation. Poor historian, chart was reviewed. Pt goes to [facility] T/T/S for HD. Last HD was past Saturday. Pt says that he quit smoking. H/O Alcohol use in the past. Denies drug abuse. Pt says that he was adopted. Medications and Allergies Allergies Allergy/AdvReac Type Severity Reaction Status Date / Time acetaminophen [From Percocet] Allergy Unknown Verified 11/08/16 11:28 morphine Allergy Unknown Verified 11/08/16 11:28 oxycodone Allergy Unknown Verified 11/08/16 11:28 oxycodone HCl [From Percocet] Allergy Unknown Verified 11/08/16 11:28 oxycodone terephthalate Allergy Itching Verified 11/08/16 11:28 [From Percodan] shellfish derived Allergy Unknown Verified 11/08/16 11:28 Home Medications Medication Instructions Recorded Confirmed Last Taken Type AtorvaSTATin [Lipitor] 40 mg PO QHS #30 tablet 09/28/16 11/25/16 11/23/16 06:00 Rx Lisinopril [Zestril TAB] 40 mg PO QDAY #30 tablet 09/28/16 11/25/16 11/23/16 06: 00 Rx Syring W-Ndl,Disp,Insul,0.3 ml 1 each [facility] #100 disp.syrin 09/28/16 11/25/16 11/08/16 Rx [Insulin Syringe/Needle 0.3 ML] hydrALAZINE [Apresoline TAB] 50 mg PO Q8HR #120 tablet 09/28/16 11/25/16 06:00 Rx 50 mg Aspirin [Aspirin TAB] 81 mg PO QDAY 10/29/16 11/25/16 11/22/16 06:00 History Carvedilol [Coreg] 25 mg PO BID 60 Days 11/14/16 11/25/16 11/23/16 06:00 Rx Insulin Detemir [Levemir] 5 units SUB-Q QHS 30 Days 11/14/16 11/25/16 11/08/16 Rx Active Meds: Active Medications Al Hydrox/Mg Hydrox/Simethicone (Alum-Mag Hydrox-Simeth [phone]/5ml) 30 ml PO Q4H PRN PRN Reason: Indigestion Last Admin: 11/26/16 06:40 Dose: 30 ml Bisacodyl (Dulcolax) 10 mg [place] QDAY PRN PRN Reason: Constipation Dextrose (D50w (25gm)) 50 ml IV PRN PRN PRN Reason: Hypoglycemia Levofloxacin/Dextrose (Levaquin 500mg/100ml) 500 mg in 100 mls @ 100 mls/hr IV Q48H [facility] Piperacillin Sod/Tazobactam Sod (Zosyn/Ns 2.25 Gm/50ml) 2.25 gm in 50 mls @ 100 mls/hr IV Q8H [facility] PRN Reason: Protocol Last Admin: 11/26/16 01:53 Dose: 100 mls/hr Insulin Aspart (Novolog) 0 units SUB-Q ACHS [facility] PRN Reason: Protocol Last Admin: 11/26/16 08:12 Dose: 2 units Metoclopramide HCl (Reglan) 10 mg IV Q8H PRN PRN Reason: Nausea And Vomiting Last Admin: 11/26/16 06:40 Dose: 10 mg Nitroglycerin (Nitrostat) 0.4 mg SL .Q5MIN PRN PRN Reason: Chest Pain Last Admin: 11/25/16 19:15 Dose: 0.4 mg Ondansetron HCl (Zofran) 4 mg IV Q4H PRN PRN Reason: Nausea And Vomiting Pantoprazole Sodium (Protonix) 40 mg PO QDAY [facility] Zolpidem Tartrate (Ambien) 5 mg PO QHS PRN PRN Reason: Sleep Review of Systems All systems: negative Constitutional: weakness, poor appetite Respiratory: cough Gastrointestinal: nausea, vomiting, constipation Exam - Constitutional Vitals: Temp Pulse Resp BP Pulse Ox 97.7 F 89 20 164/96 93 11/26/16 07:21 11/26/16 07:59 11/26/16 07:21 11/26/16 07:21 11/26/16 07:21 General appearance: Present: no acute distress, disheveled - Neck Neck: Present: supple - Respiratory Respiratory: bilateral: diminished - Cardiovascular Rhythm: regular Heart Sounds: Present: systolic murmur - Extremities Extremities: abnormal (1+ edema, left fore arm AVF has bruit and thrill) Results - Labs CBC & Chem 7: 11/26/16 06:18 11/26/16 06:18 Labs: Abnormal lab results 11/25/16 11/25/16 11/26/16 Range/Units 16:30 21:40 06:18 RBC 3.18 L (3.65-5.03) M/mm3 Hgb 8.4 L (11.8-15.2) gm/dl Hct 26.5 L (35.5-45.6) % MCV 83 L (84-94) fl MCH 27 L (28-32) pg RDW 18.0 H (13.2-15.2) % Chloride (98-107) mmol/L BUN (9-20) mg/dL Creatinine (0.8-1.5) mg/dL Glucose (75-100) mg/dL POC Glucose 212 H 171 H (70-105) Calcium (8.4-10.2) mg/dL 11/26/16 Range/Units 06:18 RBC (3.65-5.03) M/mm3 Hgb (11.8-15.2) gm/dl Hct (35.5-45.6) % MCV (84-94) fl MCH (28-32) pg RDW (13.2-15.2) % Chloride 92.8 L (98-107) mmol/L BUN 36 H (9-20) mg/dL Creatinine 6.7 H (0.8-1.5) mg/dL Glucose 172 H (75-100) mg/dL POC Glucose (70-105) Calcium 7.9 L (8.4-10.2) mg/dL Assessment and Plan - Patient Problems (1) Upper GI bleeding Current Visit: No Status: Acute Plan to address problem: hematemesis with possible aspiration. G.I and ID consults reviewed (2) Pneumonia Current Visit: Yes Status: Acute Qualifiers: Pneumonia type: P Aspiration pneumonia type: A Laterality: L Lung location: L (3) ESRD (end stage renal disease) on dialysis Current Visit: Yes Status: Chronic Plan to address problem: HD on T/T/S. Renal diet (4) Anemia in CKD (chronic kidney disease) Current Visit: Yes Status: Chronic Qualifiers: Chronic kidney disease stage: C (5) Chronic liver disease Current Visit: Yes Status: Chronic Plan to address problem: with Ascites. Had paracentesis in the past (6) Nonischemic cardiomyopathy Current Visit: No Status: Chronic
[2016-11-26] MEDS ORDERED: HEPARIN SUB-Q SCH (10:00)
[2016-11-26] MEDS ORDERED: PROTONIX PO SCH (10:00)
--- NOTE | 2016-11-26 10:02 | Gastroenterology Consultation ---
History of Present Illness - Reason for Consult Consult date: 11/26/16 cirrhosis, ascites Requesting physician: CHANTELLE LLANOS - History of Present Illness Patient is a 56 y/o male who is well known to our group. He was seen by us in September 2016 for cirrhosis which was confirmed by CT scan, abd u/s, and labs with ascites. At that time he underwent a paracentesis and an EGD by Dr. Mari on that revealed mild esophagitis, and enlarged gastric folds (bxs negative) , but no varices. He was seen again by our group just last month for hemorrhagic ascites s/p paracentesis with CTA performed by IR which did not show active bleeding. Pt was d/c home with f/u appt in our clinic for management of his cirrhosis. He was re-admitted yesterday for CP and SOB. HGB is stable. Troponins were elevated but trending down, he had recent LHC which was negative for CAD (EF 30%). This morning, pt was resting in bed without acute distress. Denies abd pain but states his abd feels full. Also c/o nausea with inability to tolerate po intake. Denies fever or active signs of bleeding. PMH significant for ESRD on HD, CHF, DM, GERD, HTN, and hyperlipidemia. Past History Past Medical History: arthritis, diabetes, ESRD, GERD, hypertension, hyperlipidemia, liver disease, seizures, other ( prostate CA, CHF, sleep apnea, ) Past Surgical History: hernia repair, Other (fistula to left arm) Social history: smoking, alcohol abuse (denies any alcohol use for last couple of months) Family history: other (unknown, adopted) Medications and Allergies Allergies Allergy/AdvReac Type Severity Reaction Status Date / Time acetaminophen [From Percocet] Allergy Unknown Verified 11/08/16 11:28 morphine Allergy Unknown Verified 11/08/16 11:28 oxycodone Allergy Unknown Verified 11/08/16 11:28 oxycodone HCl [From Percocet] Allergy Unknown Verified 11/08/16 11:28 oxycodone terephthalate Allergy Itching Verified 11/08/16 11:28 [From Percodan] shellfish derived Allergy Unknown Verified 11/08/16 11:28 Home Medications Medication Instructions Recorded Confirmed Last Taken Type AtorvaSTATin [Lipitor] 40 mg PO QHS #30 tablet 09/28/16 11/25/16 11/23/16 06:00 Rx Lisinopril [Zestril TAB] 40 mg PO QDAY #30 tablet 09/28/16 11/25/16 11/23/16 06: 00 Rx Syring W-Ndl,Disp,Insul,0.3 ml 1 each [facility] #100 disp.syrin 09/28/16 11/25/16 11/08/16 Rx [Insulin Syringe/Needle 0.3 ML] hydrALAZINE [Apresoline TAB] 50 mg PO Q8HR #120 tablet 09/28/16 11/25/16 06:00 Rx 50 mg Aspirin [Aspirin TAB] 81 mg PO QDAY 10/29/16 11/25/16 11/22/16 06:00 History Carvedilol [Coreg] 25 mg PO BID 60 Days 11/14/16 11/25/16 11/23/16 06:00 Rx Insulin Detemir [Levemir] 5 units SUB-Q QHS 30 Days 11/14/16 11/25/16 11/08/16 Rx Active Meds: Active Medications Al Hydrox/Mg Hydrox/Simethicone (Alum-Mag Hydrox-Simeth [phone]/5ml) 30 ml PO Q4H PRN PRN Reason: Indigestion Last Admin: 11/26/16 06:40 Dose: 30 ml Bisacodyl (Dulcolax) 10 mg [place] QDAY PRN PRN Reason: Constipation Dextrose (D50w (25gm)) 50 ml IV PRN PRN PRN Reason: Hypoglycemia Levofloxacin/Dextrose (Levaquin 500mg/100ml) 500 mg in 100 mls @ 100 mls/hr IV Q48H [facility] Piperacillin Sod/Tazobactam Sod (Zosyn/Ns 2.25 Gm/50ml) 2.25 gm in 50 mls @ 100 mls/hr IV Q8H [facility] PRN Reason: Protocol Last Admin: 11/26/16 01:53 Dose: 100 mls/hr Insulin Aspart (Novolog) 0 units SUB-Q ACHS [facility] PRN Reason: Protocol Last Admin: 11/26/16 08:12 Dose: 2 units Metoclopramide HCl (Reglan) 10 mg IV Q8H PRN PRN Reason: Nausea And Vomiting Last Admin: 11/26/16 06:40 Dose: 10 mg Nitroglycerin (Nitrostat) 0.4 mg SL .Q5MIN PRN PRN Reason: Chest Pain Last Admin: 11/25/16 19:15 Dose: 0.4 mg Ondansetron HCl (Zofran) 4 mg IV Q4H PRN PRN Reason: Nausea And Vomiting Pantoprazole Sodium (Protonix) 40 mg PO QDAY [facility] Last Admin: 11/26/16 09:34 Dose: 40 mg Zolpidem Tartrate (Ambien) 5 mg PO QHS PRN PRN Reason: Sleep Review of Systems - Review of Systems All systems: negative Cardiovascular: chest pain, shortness of breath Respiratory: cough Gastrointestinal: nausea, other (abd fullness) Exam - Constitutional Vital Signs: Temp Pulse Resp BP Pulse Ox 97.7 F 89 20 164/96 99 11/26/16 07:21 11/26/16 07:59 11/26/16 07:21 11/26/16 07:21 11/26/16 09:22 General appearance: no acute distress - EENT Eyes: PERRL, EOM intact ENT: hearing intact - Neck Neck: supple, normal ROM, no masses or JVD - Respiratory Respiratory: bilateral: CTA (anterior) - Cardiovascular Rhythm: regular Heart Sounds: Present: S1 & S2 Extremities: No edema Extremity abnormal: other (AV fistula in L arm) - Gastrointestinal General gastrointestinal: Present: soft, non-tender, distended, normal bowel sounds - Integumentary Integumentary: Present: warm, dry - Neurologic Neurological: alert and oriented x3 - Psychiatric Psychiatric: appropriate mood/affect, cooperative - Labs CBC & Chem 7: 11/26/16 06:18 11/26/16 06:18 Lab Results: Laboratory Results - last 24 hr 11/25/16 11/25/16 11/25/16 11:56 16:30 21:40 WBC RBC Hgb Hct MCV MCH MCHC RDW Plt Count Sodium Potassium Chloride Carbon Dioxide Anion Gap BUN Creatinine Estimated GFR BUN/Creatinine Ratio Glucose POC Glucose 212 H 171 H Lactic Acid 0.90 Calcium Magnesium 11/26/16 11/26/16 11/26/16 06:18 06:18 06:18 WBC 10.4 RBC 3.18 L Hgb 8.4 L Hct 26.5 L MCV 83 L MCH 27 L MCHC 32 RDW 18.0 H Plt Count 303 Sodium 137 Potassium 4.8 Chloride 92.8 L Carbon Dioxide 28 Anion Gap 21 BUN 36 H Creatinine 6.7 H Estimated GFR 10 BUN/Creatinine Ratio 5.37 Glucose 172 H POC Glucose Lactic Acid 1.10 Calcium 7.9 L Magnesium 2.20 Assessment and Plan 1. cirrhosis 2. ascites 3. ESRD -cirrhosis- / reported h/o ETOH abuse- confirmed by abd CT and u/s 10/03 -EGD 10/01/16-revealed mild esophagitis but no varices -h/o ascites- hemorrhagic ascites 10/03 (CTA revealed no active bleed) -HGB stable- no active signs of bleeding -continue supportive care -paracentesis today and PRN, low sodium diet, and fluid restriction -no further recommendations at this time -patient will need to be d/c with f/u appt in our clinic for outpatient management of his cirrhosis
--- NOTE | 2016-11-26 11:57 | Consultation ---
History of Present Illness Consult date: 11/26/16 Consult reason: chest pain History of present illness: Patient's a 56-year-old man with multiple medical problems. He has end-stage renal disease on hemodialysis. He has a dilated cardiomyopathy and left ventricle systolic dysfunction. An echocardiogram 5 months ago demonstrated ejection fraction of 25-30%. A Persantin thallium stress test at that time was negative for ischemia, and patient was recommended for medical therapy for a presumed nonischemic cardiomyopathy. He is admitted to the hospital at this time with atypical chest pain, and a chest x-ray was reported with a right basal pneumonia. ECG was sinus rhythm with left ventricular hypertrophy and nonspecific ST and T-wave abnormalities. The cardiac enzyme profile showed a CPK of 1026, with a (minimal) MB fraction of 22, consistent with rhabdomyolysis. Past History Past Medical History: arthritis, diabetes, ESRD, GERD, heart failure, hypertension, hyperlipidemia, liver disease, seizures, other ( prostate CA, CHF , sleep apnea, ) Past Surgical History: hernia repair, Other (fistula to left arm) Social history: smoking, alcohol abuse (denies any alcohol use for last couple of months) Family history: other (unknown, adopted) Medications and Allergies Allergies Allergy/AdvReac Type Severity Reaction Status Date / Time acetaminophen [From Percocet] Allergy Unknown Verified 11/08/16 11:28 morphine Allergy Unknown Verified 11/08/16 11:28 oxycodone Allergy Unknown Verified 11/08/16 11:28 oxycodone HCl [From Percocet] Allergy Unknown Verified 11/08/16 11:28 oxycodone terephthalate Allergy Itching Verified 11/08/16 11:28 [From Percodan] shellfish derived Allergy Unknown Verified 11/08/16 11:28 Home Medications Medication Instructions Recorded Confirmed Last Taken Type AtorvaSTATin [Lipitor] 40 mg PO QHS #30 tablet 09/28/16 11/25/16 11/23/16 06:00 Rx Lisinopril [Zestril TAB] 40 mg PO QDAY #30 tablet 09/28/16 11/25/16 11/23/16 06: 00 Rx Syring W-Ndl,Disp,Insul,0.3 ml 1 each [facility] #100 disp.syrin 09/28/16 11/25/16 11/08/16 Rx [Insulin Syringe/Needle 0.3 ML] hydrALAZINE [Apresoline TAB] 50 mg PO Q8HR #120 tablet 09/28/16 11/25/16 06:00 Rx 50 mg Aspirin [Aspirin TAB] 81 mg PO QDAY 10/29/16 11/25/16 11/22/16 06:00 History Carvedilol [Coreg] 25 mg PO BID 60 Days 11/14/16 11/25/16 11/23/16 06:00 Rx Insulin Detemir [Levemir] 5 units SUB-Q QHS 30 Days 11/14/16 11/25/16 11/08/16 Rx Active Meds: Active Medications Al Hydrox/Mg Hydrox/Simethicone (Alum-Mag Hydrox-Simeth [phone]/5ml) 30 ml PO Q4H PRN PRN Reason: Indigestion Last Admin: 11/26/16 06:40 Dose: 30 ml Bisacodyl (Dulcolax) 10 mg [place] QDAY PRN PRN Reason: Constipation Dextrose (D50w (25gm)) 50 ml IV PRN PRN PRN Reason: Hypoglycemia Levofloxacin/Dextrose (Levaquin 500mg/100ml) 500 mg in 100 mls @ 100 mls/hr IV Q48H [facility] Piperacillin Sod/Tazobactam Sod (Zosyn/Ns 2.25 Gm/50ml) 2.25 gm in 50 mls @ 100 mls/hr IV Q8H [facility] PRN Reason: Protocol Last Admin: 11/26/16 10:38 Dose: 100 mls/hr Insulin Aspart (Novolog) 0 units SUB-Q ACHS [facility] PRN Reason: Protocol Last Admin: 11/26/16 08:12 Dose: 2 units Metoclopramide HCl (Reglan) 10 mg IV Q8H PRN PRN Reason: Nausea And Vomiting Last Admin: 11/26/16 06:40 Dose: 10 mg Nitroglycerin (Nitrostat) 0.4 mg SL .Q5MIN PRN PRN Reason: Chest Pain Last Admin: 11/25/16 19:15 Dose: 0.4 mg Ondansetron HCl (Zofran) 4 mg IV Q4H PRN PRN Reason: Nausea And Vomiting Pantoprazole Sodium (Protonix) 40 mg PO QDAY [facility] Last Admin: 11/26/16 09:34 Dose: 40 mg Zolpidem Tartrate (Ambien) 5 mg PO QHS PRN PRN Reason: Sleep Review of Systems Cardiovascular: chest pain, no orthopnea, no palpitations, no rapid/irregular heart beat, no edema, no syncope, no lightheadedness, no shortness of breath Physical Examination Vital Signs Pulse Pulse Ox 84 100 11/25/16 04:46 11/25/16 04:46 General appearance: no acute distress HEENT: Positive: PERRL Neck: Positive: neck supple Cardiac: Positive: Reg Rate and Rhythm Lungs: Positive: Decreased Breath Sounds Neuro: Positive: Grossly Intact Abdomen: Positive: Soft Male genitourinary: Positive: deferred Skin: Positive: Clear Extremities: Absent: edema Results 11/26/16 06:18 11/26/16 06:18 CBC 11/26/16 Range/Units 06:18 WBC 10.4 (4.5-11.0) K/mm3 RBC 3.18 L (3.65-5.03) M/mm3 Hgb 8.4 L (11.8-15.2) gm/dl Hct 26.5 L (35.5-45.6) % Plt Count 303 (140-440) K/mm3 Comprehensive Metabolic Panel 11/26/16 Range/Units 06:18 Sodium 137 (137-145) mmol/L Potassium 4.8 (3.6-5.0) mmol/L Chloride 92.8 L (98-107) mmol/L Carbon Dioxide 28 (22-30) mmol/L BUN 36 H (9-20) mg/dL Creatinine 6.7 H (0.8-1.5) mg/dL Glucose 172 H (75-100) mg/dL Calcium 7.9 L (8.4-10.2) mg/dL EKG interpretations - Telemetry EKG Rhythm: Sinus Rhythm Assessment and Plan - Patient Problems (1) Chest pain Current Visit: Yes Status: Acute Qualifiers: Chest pain type: unspecified Ischemic chest pain type: I Qualified Code(s ): R07.9 - Chest pain, unspecified Plan to address problem: Chest pain is atypical, patient's chest x-ray is consistent with a right basal pneumonia. Continue management of pneumonia per medical and pulmonary service. (2) Nonischemic cardiomyopathy Current Visit: No Status: Acute Plan to address problem: Medical therapy for cardiomyopathy will include afterload reducing agents, beta blockers and oral antiplatelet therapy as tolerated. Hemodialysis for management of fluid status. (3) Rhabdomyolysis Current Visit: Yes Status: Acute Qualifiers: Rhabdomyolysis type: R Encounter type: E Plan to address problem: Enzyme profile of a CPK of 1026 and MB 22 are consistent with rhabdomyolysis.
[2016-11-26] MEDS ORDERED: ZESTRIL PO SCH (13:00)
--- NOTE | 2016-11-26 13:33 | Progress Note ---
Assessment and Plan Assessment and plan: Patient is a 56-year-old man with a history of ESRD on hemodialysis TTS, CHF, hypertension, dyslipidemia, type 2 diabetes mellitus, COPD, chronic troponemia, tobacco dependency, alcohol abuse with hepatitis and recurrent ascites status post 2 paracentesis last month who presents to emergency department with complaint of moderate nonradiating, constant substernal chest pains described as indigestion with shortness of breath, productive cough with chills, no fever and intermittent nausea with vomiting since yesterday around 3 PM after the patient completed his dialysis. He took some [place] for his chest discomfort without any relief. . Patient was just discharged from here 2016. Chest x-ray read as right basilar pneumonia. Patient unable to tolerate VQ scan, he couldn't lie flat. -Sepsis RLL Aspiration Pneumonia, as evident by RR 22 and HR 103 poa: treat with iv levaquin and iv zosyn since recent hospitalization, renal dose, get blood ctx,consulted ID -ESRD needing hemodialysis: consulted Nephrology -Chest pains: He had normal coronaries last month per Cardiology, will treat with acid reflux suppression -Ascites with alcoholic cirrhosis: Consulted GI, need another paracentesis -Chronic systolic heart failure, baseline proBNP is usually greater than 70,000 : Continue to monitor -Uncontrolled diabetes mellitus: Add sliding scale insulin -Mildly CPK elevation not Rhabdomyolysis, pt has ESRD needing clearance/dialysis -DVT prophylaxis: add sq heparin ID consult pending, ?D/c tomorrow, paracentesis today. History Interval history: Patient seen and examined. Follow up on chest pain. Overnight uneventful. Patient has more abdominal distention. Imaging, old records, testing, labs, nursing notes reviewed. Hospitalist Physical - Physical exam Narrative exam: GEN: Ill-appearing NAD, AWAKE, ALERT, ORIENTATED x 3 HEENT: NCAT, PERRL, EOMI, OP CLEAR NECK: SUPPLE, NO THYROMEGALY, NO JVD, NO LAD CVS: Regular tachycardia, NORMAL S1S2 LUNGS/CHEST: CTA B, NORMAL CHEST EXPANSION B, GOOD AIR ENTRY B ABD: SOFT, distended but nontender GBS, NO REBOUND OR GUARDING EXT/SKIN: Dependent EDEMA OR RASH MSK: FROM X 4 EXTREMITIES NEURO: CN 2-12 GROSSLY INTACT, NO FOCAL DEFICITS PSY: CALM - Constitutional Vitals: Temp Pulse Resp BP Pulse Ox 98.4 F 85 20 147/80 92 11/26/16 11:13 11/26/16 11:13 11/26/16 11:13 11/26/16 11:13 11/26/16 11:13 General appearance: Present: no acute distress Results - Labs CBC & Chem 7: 11/26/16 06:18 11/26/16 06:18 Labs: Laboratory Last Values WBC 10.4 K/mm3 (4.5-11.0) 11/26/16 06:18 RBC 3.18 M/mm3 (3.65-5.03) L 11/26/16 06:18 Hgb 8.4 gm/dl (11.8-15.2) L 11/26/16 06:18 Hct 26.5 % (35.5-45.6) L 11/26/16 06:18 MCV 83 fl (84-94) L 11/26/16 06:18 MCH 27 pg (28-32) L 11/26/16 06:18 MCHC 32 % (32-34) 11/26/16 06:18 RDW 18.0 % (13.2-15.2) H 11/26/16 06:18 Plt Count 303 K/mm3 (140-440) 11/26/16 06:18 Lymph % (Auto) 11.0 % (13.4-35.0) L 11/25/16 05:08 [place] % (Auto) 8.4 % (0.0-7.3) H 11/25/16 05:08 Eos % (Auto) 13.0 % (0.0-4.3) H 11/25/16 05:08 Baso % (Auto) 0.4 % (0.0-1.8) 11/25/16 05:08 Lymph # 0.8 K/mm3 (1.2-5.4) L 11/25/16 05:08 [place] # 0.6 K/mm3 (0.0-0.8) 11/25/16 05:08 Eos # 0.9 K/mm3 (0.0-0.4) H 11/25/16 05:08 Baso # 0.0 K/mm3 (0.0-0.1) 11/25/16 05:08 Seg Neutrophils % 67.2 % (40.0-70.0) 11/25/16 05:08 Seg Neutrophils # 4.8 K/mm3 (1.8-7.7) 11/25/16 05:08 PT 15.3 Sec. (12.2-14.9) H 11/25/16 05:08 INR 1.15 (0.87-1.13) H 11/25/16 05:08 APTT 46.1 Sec. (24.2-36.6) H 11/25/16 05:08 D-Dimer 8832.65 ng/mlDDU (0-234) H 11/25/16 05:08 Sodium 137 mmol/L (137-145) 11/26/16 06:18 Potassium 4.8 mmol/L (3.6-5.0) 11/26/16 06:18 Chloride 92.8 mmol/L (98-107) L 11/26/16 06:18 Carbon Dioxide 28 mmol/L (22-30) 11/26/16 06:18 Anion Gap 21 mmol/L 11/26/16 06:18 BUN 36 mg/dL (9-20) H 11/26/16 06:18 Creatinine 6.7 mg/dL (0.8-1.5) H 11/26/16 06:18 Estimated GFR 10 ml/min 11/26/16 06:18 BUN/Creatinine Ratio 5.37 % 11/26/16 06:18 Glucose 172 mg/dL (75-100) H 11/26/16 06:18 POC Glucose 132 (70-105) H 11/26/16 11:13 Lactic Acid 1.10 mmol/L (0.7-2.0) 11/26/16 06:18 Calcium 7.9 mg/dL (8.4-10.2) L 11/26/16 06:18 Magnesium 2.20 mg/dL (1.7-2.3) 11/26/16 06:18 Total Creatine Kinase 1026 units/L (55-170) H 11/25/16 05:08 CK-MB (CK-2) 22.4 ng/mL (0.0-4.0) H 11/25/16 05:08 CK-MB (CK-2) Rel Index 2.1 (0-4) 11/25/16 05:08 Troponin T 1.450 ng/mL (0.00-0.029) H* 11/25/16 08:01 NT-Pro-B Natriuret Pep 14246 pg/mL (0-900) H 11/25/16 Unknown Triglycerides 91 mg/dL (2-149) 11/25/16 05:08 Cholesterol 105 mg/dL (50-199) 11/25/16 05:08 LDL Cholesterol Direct 56 mg/dL (50-130) 11/25/16 05:08 HDL Cholesterol 31 mg/dL (40-59) L 11/25/16 05:08 Cholesterol/HDL Ratio 3.38 % 11/25/16 05:08
--- NOTE | 2016-11-26 13:47 | Consultation ---
History of Present Illness - Reason for Consult Consult date: 11/26/16 HAP in ESRD Pt Requesting physician: CHANTELLE LLANOS - History of Present Illness Mr. Westfall is a 56-year-old man with multiple chronic medical problems, including EtOH-liver cirrhosis who was admitted for evaluation of productive cough/ hemoptysis starting on 11/24/16. He says his has, also, had a cough , no hemoptysis, but he denies other known sick contacts. He was tachycardic and tachypneic with RLL radiographic changes concerning for aspiration PNA. He undergoes HD on and has been evaluated multiple times in a healthcare setting of the past several months. There are concerns for HAP vs. other etiology of pneumonia. ID consultation is requested for further treatment recommendations. Past History Past Medical History: arthritis, diabetes, ESRD, GERD, heart failure, hypertension, hyperlipidemia, liver disease, seizures, other ( prostate CA, CHF , sleep apnea, ) Past Surgical History: hernia repair, Other (fistula to left arm) Social history: smoking (recently cut down to 2 cigs / day), alcohol abuse ( denies any alcohol use for last couple of months) Family history: other (unknown, adopted) Medications and Allergies Allergies Allergy/AdvReac Type Severity Reaction Status Date / Time acetaminophen [From Percocet] Allergy Unknown Verified 11/08/16 11:28 morphine Allergy Unknown Verified 11/08/16 11:28 oxycodone Allergy Unknown Verified 11/08/16 11:28 oxycodone HCl [From Percocet] Allergy Unknown Verified 11/08/16 11:28 oxycodone terephthalate Allergy Itching Verified 11/08/16 11:28 [From Percodan] shellfish derived Allergy Unknown Verified 11/08/16 11:28 Home Medications Medication Instructions Recorded Confirmed Last Taken Type AtorvaSTATin [Lipitor] 40 mg PO QHS #30 tablet 09/28/16 11/25/16 11/23/16 06:00 Rx Lisinopril [Zestril TAB] 40 mg PO QDAY #30 tablet 09/28/16 11/25/16 11/23/16 06: 00 Rx Syring W-Ndl,Disp,Insul,0.3 ml 1 each ACHS #100 disp.syrin 09/28/16 11/25/16 11/08/16 Rx [Insulin Syringe/Needle 0.3 ML] hydrALAZINE [Apresoline TAB] 50 mg PO Q8HR #120 tablet 09/28/16 11/25/16 06:00 Rx 50 mg Aspirin [Aspirin TAB] 81 mg PO QDAY 10/29/16 11/25/16 11/22/16 06:00 History Carvedilol [Coreg] 25 mg PO BID 60 Days 11/14/16 11/25/16 11/23/16 06:00 Rx Insulin Detemir [Levemir] 5 units SUB-Q QHS 30 Days 11/14/16 11/25/16 11/08/16 Rx Active Meds: Active Medications Aspirin (Halfprin Ec) 81 mg PO QDAY [facility] Bisacodyl (Dulcolax) 10 mg IA QDAY PRN PRN Reason: Constipation Carvedilol (Coreg) 6.25 mg PO BID [facility] Dextrose (D50w (25gm)) 50 ml IV PRN PRN PRN Reason: Hypoglycemia Heparin Sodium (Porcine) (Heparin) 5,000 unit SUB-Q Q12HR [facility] Levofloxacin/Dextrose (Levaquin 500mg/100ml) 500 mg in 100 mls @ 100 mls/hr IV Q48H [facility] Piperacillin Sod/Tazobactam Sod (Zosyn/Ns 2.25 Gm/50ml) 2.25 gm in 50 mls @ 100 mls/hr IV Q8H [facility] PRN Reason: Protocol Last Admin: 11/26/16 10:38 Dose: 100 mls/hr Insulin Aspart (Novolog) 0 units SUB-Q ACHS [facility] PRN Reason: Protocol Last Admin: 11/26/16 12:14 Dose: Not Given Lisinopril (Zestril) 40 mg PO QDAY [facility] Last Admin: 11/26/16 12:51 Dose: 40 mg Metoclopramide HCl (Reglan) 10 mg IV Q8H PRN PRN Reason: Nausea And Vomiting Last Admin: 11/26/16 06:40 Dose: 10 mg Nitroglycerin (Nitrostat) 0.4 mg SL .Q5MIN PRN PRN Reason: Chest Pain Last Admin: 11/25/16 19:15 Dose: 0.4 mg Ondansetron HCl (Zofran) 4 mg IV Q4H PRN PRN Reason: Nausea And Vomiting Pantoprazole Sodium (Protonix) 40 mg PO QDAY [facility] Last Admin: 11/26/16 09:34 Dose: 40 mg Zolpidem Tartrate (Ambien) 5 mg PO QHS PRN PRN Reason: Sleep Review of Systems All systems: negative Constitutional: fever, fatigue, no chills, no sweats Ears, nose, mouth and throat: no nasal discharge, no headache Cardiovascular: chest pain, shortness of breath, dyspnea on exertion, no palpitations Respiratory: cough with sputum, hemoptysis, pain on inspiration, no wheezing Gastrointestinal: no abdominal pain, no nausea, no vomiting, no diarrhea Genitourinary Male: no dysuria Integumentary: no rash, no pruritis Physical Examination - Constitutional Vitals: Vital Signs Temp Pulse Resp BP Pulse Ox 98.4 F 85 20 147/80 92 11/26/16 11:13 11/26/16 11:13 11/26/16 11:13 11/26/16 11:13 11/26/16 11:13 Temperature -Last 24 Hours Temperature 98.4 F Temperature 97.7 F Temperature 98.6 F Temperature 98.3 F Temperature 98.3 F Temperature 98.3 F General appearance: Present: no acute distress - EENT Eyes: Absent: scleral icterus, conjunctival injection - Neck Neck: Present: supple - Respiratory Respiratory effort: normal Respiratory: bilateral: CTA, negative: rales - Cardiovascular Rhythm: regular Heart Sounds: Present: S1 & S2 - Extremities Extremities: No edema - Abdominal General gastrointestinal: Present: soft, non-distended - Integumentary Integumentary: Present: clear. Absent: rash - Psychiatric Psychiatric: appropriate mood/affect - Neurologic Neurologic: no CNII-XII intact, moves all extremities Results - Labs CBC & Chem 7: 11/26/16 06:18 11/26/16 06:18 Labs: Abnormal lab results 11/25/16 11/25/16 11/26/16 Range/Units 16:30 21:40 06:18 RBC 3.18 L (3.65-5.03) M/mm3 Hgb 8.4 L (11.8-15.2) gm/dl Hct 26.5 L (35.5-45.6) % MCV 83 L (84-94) fl MCH 27 L (28-32) pg RDW 18.0 H (13.2-15.2) % Chloride (98-107) mmol/L BUN (9-20) mg/dL Creatinine (0.8-1.5) mg/dL Glucose (75-100) mg/dL POC Glucose 212 H 171 H (70-105) Calcium (8.4-10.2) mg/dL 11/26/16 11/26/16 11/26/16 Range/Units 06:18 07:21 11:13 RBC (3.65-5.03) M/mm3 Hgb (11.8-15.2) gm/dl Hct (35.5-45.6) % MCV (84-94) fl MCH (28-32) pg RDW (13.2-15.2) % Chloride 92.8 L (98-107) mmol/L BUN 36 H (9-20) mg/dL Creatinine 6.7 H (0.8-1.5) mg/dL Glucose 172 H (75-100) mg/dL POC Glucose 205 H 132 H (70-105) Calcium 7.9 L (8.4-10.2) mg/dL Microbiology 11/25/16 Unknown Peripheral/Venous Blood Culture - Preliminary Culture in Progress 11/25/16 Unknown Peripheral/Venous Blood Culture - Preliminary Culture in Progress - Imaging and Cardiology Chest x-ray: report reviewed (interval development of right basilar pneumonia) Assessment and Plan - Patient Problems (1) Aspiration pneumonia Current Visit: Yes Status: Acute Qualifiers: Aspiration pneumonia type: A Laterality: right Lung location: lower lobe of lung Plan to address problem: 1. Presumptive aspiration, but will check for other atypical possibilities, also non-infectious possibilities. 2. Obtain sputum culture, ANCAs, quantiferon, etc. 3. Empiric treatment with Vancomycin, Levaquin and Flagyl.
[2016-11-26] MEDS ORDERED: VANCOMYCIN/NS 1 GM/250 ML 1 GM/250 ML BAG IV ONE (15:26)
[2016-11-26] MEDS ORDERED: VANCOMYCIN PHARMACY TO DOSE IV SCH (16:00)
[2016-11-26] MEDS: FLAGYL 500 MG/100 ML 500 MG/100 ML BAG IV SCH ×2 (16:00→21:45)
[2016-11-26] MEDS ORDERED: VANCOMYCIN 1,500 MG in NACL 0.9% 500 ML 500 ML IV ONE (17:00)
[2016-11-26 17:02] LABS: HIV-1 Antigen p24 Non React (Non React); HIVR-1/2 Ab Non React (Non React)
--- NOTE | 2016-11-26 17:24 | Admit Criteria Form ---
Admission Criteria Documentation: CHEST PAIN Clinical Indications for Admission to Inpatient Care (Place 'X' for any and all applicable criteria): Admission is indicated for chest pain and ANY ONE of the following(1)(2)(3)(4)(5 ): [ ]I. Angina with acute coronary syndrome (Also use Myocardial Infarction or Angina guideline) [ ]II. Hemodynamic instability [ X]III. Angina needing acute intervention as indicated by ALL of the following (11)(12): [X ]a) Unstable angina is present as indicated by angina that is ANY ONE of the following: [ ]i) New onset [ ]ii) Nocturnal [ ]iii) Prolonged at rest [X ]iv) Progressive [X]b) Angina warrants acute intervention as indicated by ANY ONE of the following: [ ]i) Recurrent angina (e.g, not responding as previously to treatment) [ ]ii) Angina at rest or with low-level activities despite initial medical therapy [ ]iii) New or presumably new ST-segment depression on ECG [ ]iv) Signs or symptoms of heart failure (eg, dyspnea, pulmonary edema) [ ]v) New or worsening mitral regurgitation [ ]vi) Hemodynamic instability [ ]vii) Dangerous arrhythmia (eg, sustained ventricular tachycardia) [ ]viii) History of percutaneous coronary intervention within 6 months [ ]ix) History of coronary artery bypass graft surgery [X ]x) MELECIO risk score of 2 or greater[A] [ ]xi) History of Diabetes(14) [ ]xii) High-risk cardiac ischemia findings on noninvasive testing (e.g, echocardiogram, treadmill testing, nuclear scan) [ ]xiii) Chronic renal insufficiency (ie, estimated GFR less than 60 mL/min/1.732m) [ ]xiv) Left ventricular ejection fraction less than 40% [ ]IV. Evidence of [place] (eg, cardiac biomarkers positive, ST-segment elevation on ECG) also use Myocardial Infarction Criteria Form. [ ]V. Pulmonary edema [ ]. Respiratory distress [ ]VII. Chest pain indicative of serious diagnosis other than coronary artery disease (eg, aortic dissection) [ ]VIII. Contraindications and/or Inappropriate clinical situations for Observational Care in patients with Chest Pain, when ANY ONE of the following is required: [ ]a) Patient with risk factor for pulmonary embolism, acute coronary syndrome and myocardial infarction (18) [ ]b) Patient with Pulmonary embolism require an average LOS of 4.3 days, therefore emergency department observation management is inappropriate 18,23 [ ]c) Painful condition/s in the elderly, have the highest rate of recidivism after emergency department observation management (10.8%) 20,21,22 [ ]d) Elevated cardiac biomarker requires intensive and exhaustive care (19) [ ]IX. General contraindications and/or Inappropriate clinical situations for Observational Care in patients with Chest Pain, when ANY ONE of the following is required: [ ]a) Prediction of prolongation of LOS based on ANY ONE of the following may be considered as a contraindication for observational care 2, 3, 4, 5, 6, 7, 8, 9, 10, 11 [ ]i) Age > 65 yrs. [ ]ii) Patient arriving by ambulance [ ]iii) Patient with high acuity [ ]iv) Patient requiring vital sign monitoring [ ]v) Patient on IV medication [ ]b) Systolic blood pressures 180mmHg 3,12 [ ]c) Patient with altered mental status including delirium and other alteration of consciousness, (3) [ ]d) Patient whose discharge disposition will be to a nursing home home or rehabilitation home should not be managed in Emergency Department Observation Unit. CMS rule requires 3 days hospital stay before such placement. 3,13 [ ]e) Patient with failure to thrive due to broad array of etiologies 3,16,17 [ ]f) Inability to ambulate 3,14 Extended stay beyond goal length of stay may be needed for (1)(28): [ ]a) Specific condition diagnosed after evaluation (eg, pulmonary embolism, aortic dissection) [ ]b) Unstable angina [ ]c) Continued suspicion of acute coronary syndrome with inability to complete needed cardiac evaluation (eg, patient clinically unable to undergo stress testing) [ ]d) Myocardial infarction (Contents from ANGINA and CHEST PAIN clinical indications for admission to inpatient care have been integrated in this form) The original [employer] content created by [employer] has been revised. The portions of the content which have been revised are identified through the use of italic text or in bold, and [email or web address] has neither reviewed nor approved the modified material. All other unmodified content is copyright [employer]. Please see references footnoted in the original [facility] edition 2016 Admission Criteria Met: Yes
[2016-11-26 20:56] LABS: Reactive Lymph Body Fluid 0 %
[2016-11-26 20:57] LABS: Basophils Body Fluid 0 %; Eosinophils Body Fluid 0 %; Lymphocytes BF 3 %; Monocytes Body Fluid 2 %; Seg Neutrophils Body Fluid 0 %
[2016-11-26] MEDS ORDERED: COREG PO SCH (22:00)
[2016-11-27 05:26] LABS: Hematocrit 24.3 % (35.5-45.6); Hemoglobin 7.9 gm/dl (11.8-15.2); Mean Corpuscular HGB Conc 32 % (32-34); Mean Corpuscular Hemoglobin 27 pg (28-32); Mean Corpuscular Volume 83 fl (84-94); Platelet Count 267 K/mm3 (140-440); Red Blood Count 2.92 M/mm3 (3.65-5.03); Red Cell Distribution Width 17.9 % (13.2-15.2); White Blood Count 9.5 K/mm3 (4.5-11.0)
[2016-11-27 05:40] LABS: BUN/Creatinine Ratio 6.02; Calcium 7.9 mg/dL (8.4-10.2); Chloride 91.6 mmol/L (98-107); Potassium 4.8 mmol/L (3.6-5.0)
[2016-11-27] MEDS: FLAGYL 500 MG/100 ML 500 MG/100 ML BAG IV SCH (06:06)
--- NOTE | 2016-11-27 08:06 | Ultrasound Report ---
ULTRASOUND PARACENTESIS History: Ascites. Description of procedure: Informed consent was obtained. Sterile technique was utilized. 1% lidocaine for skin anesthesia. Using ultrasound guidance, a 5 [place] centesis needle was advanced into the left lower quadrant peritoneal space. There was spontaneous return of blood-tinged fluid. 3.6 L of fluid was aspirated. 120 cc of fluid was sent to laboratory for analysis. The patient tolerated the procedure without difficulty. Impression: Successful ultrasound guided paracentesis as described.
--- NOTE | 2016-11-27 08:08 | Procedure Note ---
Date of procedure: 11/26/16 Pre-op diagnosis: ascites Post-op diagnosis: same Procedure: US paracentesis Findings: large asictes, complex Anesthesia: local Surgeon: JASWANT LENTZ Estimated blood loss: none Pathology: list (120cc) Specimen disposition: to lab Condition: stable Disposition: floor
--- NOTE | 2016-11-27 08:26 | Progress Note ---
Assessment and Plan - Patient Problems (1) Aspiration pneumonia Current Visit: Yes Status: Acute Qualifiers: Aspiration pneumonia type: A Laterality: right Lung location: lower lobe of lung Plan to address problem: 1. Continue current regimen pending final micro data. 2. Follow-up ANCAs, etc. Subjective Date of service: 11/27/16 Principal diagnosis: Pneumonia Interval history: Afebrile overnight. Denies further episodes of hemoptysis. Objective - Constitutional Vitals: Vital Signs Temp Pulse Resp BP Pulse Ox 98.6 F 100 H 20 160/86 94 11/27/16 05:48 11/27/16 05:48 11/27/16 05:48 11/27/16 05:48 11/27/16 05:48 Temperature -Last 24 Hours Temperature 98.6 F Temperature 98.2 F Temperature 98.3 F Temperature 98.4 F Temperature 98.4 F General appearance: Present: no acute distress, other (sitting up in chair to eat breakfast) - EENT ENT: clear oral mucosa - Respiratory Respiratory effort: normal Respiratory: bilateral: CTA, negative: rales, rhonchi - Cardiovascular Rhythm: regular Heart Sounds: Present: S1 & S2 Extremities: No edema - Gastrointestinal General gastrointestinal: Present: soft, non-tender, non-distended - Integumentary Integumentary: no rash - Additional findings Additional findings: AV fistula left arm with thrill - Labs CBC & Chem 7: 11/27/16 04:56 11/27/16 04:56 Labs: Abnormal lab results 11/26/16 11/26/16 11/26/16 Range/Units 07:21 11:13 16:07 RBC (3.65-5.03) M/mm3 Hgb (11.8-15.2) gm/dl Hct (35.5-45.6) % MCV (84-94) fl MCH (28-32) pg RDW (13.2-15.2) % Sodium (137-145) mmol/L Chloride (98-107) mmol/L BUN (9-20) mg/dL Creatinine (0.8-1.5) mg/dL Glucose (75-100) mg/dL POC Glucose 205 H 132 H 135 H (70-105) Calcium (8.4-10.2) mg/dL Total Creatine Kinase (55-170) units/L 11/26/16 11/27/16 11/27/16 Range/Units 21:56 04:56 04:56 RBC 2.92 L (3.65-5.03) M/mm3 Hgb 7.9 L (11.8-15.2) gm/dl Hct 24.3 L (35.5-45.6) % MCV 83 L (84-94) fl MCH 27 L (28-32) pg RDW 17.9 H (13.2-15.2) % Sodium 134 L (137-145) mmol/L Chloride 91.6 L (98-107) mmol/L BUN 44 H (9-20) mg/dL Creatinine 7.3 H (0.8-1.5) mg/dL Glucose 123 H (75-100) mg/dL POC Glucose 139 H (70-105) Calcium 7.9 L (8.4-10.2) mg/dL Total Creatine Kinase 468 H (55-170) units/L Microbiology 11/26/16 19:45 Sputum - Expectorated Sputum Sputum Culture - Preliminary ( Gram negative rods and Gram positive cocci pairs) 11/26/16 Unknown Ascities Fluid Body Fluid Culture - Preliminary 11/25/16 Unknown Peripheral/Venous Blood Culture - Preliminary NO GROWTH AFTER 24 HOURS 11/25/16 Unknown Peripheral/Venous Blood Culture - Preliminary NO GROWTH AFTER 24 HOURS
[2016-11-27] MEDS: NOVOLOG SUB-Q SCH (09:08)
--- NOTE | 2016-11-27 09:22 | Progress Note ---
Assessment and Plan - Patient Problems (1) Upper GI bleeding Current Visit: No Status: Acute (2) Pneumonia Current Visit: Yes Status: Acute Qualifiers: Pneumonia type: P Aspiration pneumonia type: A Laterality: L Lung location: L (3) ESRD (end stage renal disease) on dialysis Current Visit: Yes Status: Chronic (4) Anemia in CKD (chronic kidney disease) Current Visit: Yes Status: Chronic Qualifiers: Chronic kidney disease stage: C (5) Chronic liver disease Current Visit: Yes Status: Chronic (6) Nonischemic cardiomyopathy Current Visit: No Status: Chronic Subjective Date of service: 11/27/16 Principal diagnosis: Pneumonia Objective - Vital Signs Vital signs: Vital Signs - 12hr 11/26/16 11/27/16 11/27/16 23:00 00:47 05:48 Temperature 98.2 F 98.6 F Pulse Rate 85 Pulse Rate [ 91 H 100 H From Monitor] Pulse Rate [ 91 H 100 H Left Radial] Pulse Rate [ 91 H 100 H Right Radial] Respiratory 20 20 Rate Blood Pressure 158/84 160/86 [Right Arm] O2 Sat by Pulse 96 94 Oximetry - Lab 11/27/16 04:56 11/27/16 04:56 Most recent lab results Calcium 7.9 mg/dL (8.4-10.2) L 11/27/16 04:56 Magnesium 2.20 mg/dL (1.7-2.3) 11/26/16 06:18
[2016-11-27] MEDS ORDERED: HALFPRIN EC PO SCH (10:00)
[2016-11-27] MEDS ORDERED: NACL 0.9% 100 ML IV PRN (10:00)
[2016-11-27] MEDS ORDERED: PROCRIT IV PRN (10:00)
[2016-11-27] MEDS ORDERED: NACL 0.9 (PRIMING MACHINE ONLY DIALYSIS) MC ONE (11:55)
--- NOTE | 2016-11-27 12:06 | Progress Note ---
Assessment and Plan Pneumonia Ascities s/p paracentesis ESRD on dialysis Hypertension Nonischemic cardiomyopathy normal coronaries EF 30% by [facility] 06/2016 Hypertension Rhabdomyolysis Anemia Recommendations: Fluid management through dialysis. Medical therapy for his nonischemic cardiomyopathy. Subjective Date of service: 11/27/16 Principal diagnosis: Pneumonia Interval history: No acute distress. Undergoing dialysis. Objective Vital Signs Temp Pulse Pulse Pulse Pulse Resp BP 11/27/16 11:45 93 H 171/102 11/27/16 11:30 93 H 191/111 11/27/16 11:15 78 181/109 11/27/16 11:00 89 181/107 11/27/16 10:45 88 179/102 11/27/16 10:30 88 166/94 11/27/16 07:25 97.8 F 90 18 11/27/16 05:48 98.6 F 100 H 100 H 100 H 20 11/27/16 00:47 98.2 F 91 H 91 H 91 H 20 11/26/16 23:00 85 11/26/16 20:19 98.3 F 90 90 90 20 11/26/16 16:07 98.4 F 97 H 97 H 97 H 20 BP Pulse Ox 11/27/16 11:45 11/27/16 11:30 11/27/16 11:15 11/27/16 11:00 11/27/16 10:45 11/27/16 10:30 11/27/16 07:25 178/98 95 11/27/16 05:48 160/86 94 11/27/16 00:47 158/84 96 11/26/16 23:00 11/26/16 20:19 154/81 94 11/26/16 16:07 154/88 95 - Physical Examination General: No Apparent Distress Cardiac: Positive: Reg Rate and Rhythm - Labs and Meds CBC 11/27/16 Range/Units 04:56 WBC 9.5 (4.5-11.0) K/mm3 RBC 2.92 L (3.65-5.03) M/mm3 Hgb 7.9 L (11.8-15.2) gm/dl Hct 24.3 L (35.5-45.6) % Plt Count 267 (140-440) K/mm3 Comprehensive Metabolic Panel 11/27/16 Range/Units 04:56 Sodium 134 L (137-145) mmol/L Potassium 4.8 (3.6-5.0) mmol/L Chloride 91.6 L (98-107) mmol/L Carbon Dioxide 26 (22-30) mmol/L BUN 44 H (9-20) mg/dL Creatinine 7.3 H (0.8-1.5) mg/dL Glucose 123 H (75-100) mg/dL Calcium 7.9 L (8.4-10.2) mg/dL
[2016-11-27] MEDS ORDERED: LEVAQUIN 500MG/100ML 500 MG/100 ML BAG IV SCH (14:00)
--- NOTE | 2016-11-27 14:42 | Progress Note ---
Assessment and Plan Assessment and plan: Sepsis RLL Aspiration Pneumonia - iv levaquin and iv zosyn, renal dose, get blood ctx, ID consult appreciated ESRD needing hemodialysis: Nephrology consult appreciated Chest pains: -He had normal coronaries last month per Cardiology, will treat with acid reflux suppression Ascites with alcoholic cirrhosis: - Paracenteses was done Chronic systolic heart failure - Continue to monitor Uncontrolled diabetes mellitus - Add sliding scale insulin Mildly CPK elevation not Rhabdomyolysis, pt has ESRD needing clearance/dialysis -DVT prophylaxis: add sq heparin Disposition - Likely discharge tomorrow History Interval history: Patient was seen and evaluated at the bedside, no new complaints. Hospitalist Physical - Physical exam Narrative exam: Not in cardiopulmonary distress. The patient appeared well nourished and normally developed. Vital signs as documented. Head exam is unremarkable. No scleral icterus . Neck is without jugular venous distension, thyromegaly, or carotid bruits. Lungs are clear to auscultation. Cardiac exam reveals regular rate and Rhythm. First and second heart sounds normal. No murmurs, rubs or gallops. Abdominal exam reveals normal bowel sounds, no masses, no organomegaly and no aortic enlargement. Extremities are nonedematous and both femoral and pedal pulses are normal. 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 No focal weakness. - Constitutional Vitals: Temp Pulse Resp BP Pulse Ox 98.5 F 93 H 20 144/93 95 11/27/16 13:39 11/27/16 13:45 11/27/16 13:39 11/27/16 13:45 11/27/16 07:25 General appearance: Present: no acute distress, disheveled Results - Labs CBC & Chem 7: 11/27/16 04:56 11/27/16 04:56 Labs: Laboratory Last Values WBC 9.5 K/mm3 (4.5-11.0) 11/27/16 04:56 RBC 2.92 M/mm3 (3.65-5.03) L 11/27/16 04:56 Hgb 7.9 gm/dl (11.8-15.2) L 11/27/16 04:56 Hct 24.3 % (35.5-45.6) L 11/27/16 04:56 MCV 83 fl (84-94) L 11/27/16 04:56 MCH 27 pg (28-32) L 11/27/16 04:56 MCHC 32 % (32-34) 11/27/16 04:56 RDW 17.9 % (13.2-15.2) H 11/27/16 04:56 Plt Count 267 K/mm3 (140-440) 11/27/16 04:56 Lymph % (Auto) 11.0 % (13.4-35.0) L 11/25/16 05:08 [place] % (Auto) 8.4 % (0.0-7.3) H 11/25/16 05:08 Eos % (Auto) 13.0 % (0.0-4.3) H 11/25/16 05:08 Baso % (Auto) 0.4 % (0.0-1.8) 11/25/16 05:08 Lymph # 0.8 K/mm3 (1.2-5.4) L 11/25/16 05:08 [place] # 0.6 K/mm3 (0.0-0.8) 11/25/16 05:08 Eos # 0.9 K/mm3 (0.0-0.4) H 11/25/16 05:08 Baso # 0.0 K/mm3 (0.0-0.1) 11/25/16 05:08 Seg Neutrophils % 67.2 % (40.0-70.0) 11/25/16 05:08 Seg Neutrophils # 4.8 K/mm3 (1.8-7.7) 11/25/16 05:08 PT 15.3 Sec. (12.2-14.9) H 11/25/16 05:08 INR 1.15 (0.87-1.13) H 11/25/16 05:08 APTT 46.1 Sec. (24.2-36.6) H 11/25/16 05:08 D-Dimer 8832.65 ng/mlDDU (0-234) H 11/25/16 05:08 Sodium 134 mmol/L (137-145) L 11/27/16 04:56 Potassium 4.8 mmol/L (3.6-5.0) 11/27/16 04:56 Chloride 91.6 mmol/L (98-107) L 11/27/16 04:56 Carbon Dioxide 26 mmol/L (22-30) 11/27/16 04:56 Anion Gap 21 mmol/L 11/27/16 04:56 BUN 44 mg/dL (9-20) H 11/27/16 04:56 Creatinine 7.3 mg/dL (0.8-1.5) H 11/27/16 04:56 Estimated GFR 9 ml/min 11/27/16 04:56 BUN/Creatinine Ratio 6.02 % 11/27/16 04:56 Glucose 123 mg/dL (75-100) H 11/27/16 04:56 POC Glucose 128 (70-105) H 11/27/16 07:29 Lactic Acid 1.10 mmol/L (0.7-2.0) 11/26/16 06:18 Calcium 7.9 mg/dL (8.4-10.2) L 11/27/16 04:56 Magnesium 2.20 mg/dL (1.7-2.3) 11/26/16 06:18 Total Creatine Kinase 468 units/L (55-170) H 11/27/16 04:56 CK-MB (CK-2) 22.4 ng/mL (0.0-4.0) H 11/25/16 05:08 CK-MB (CK-2) Rel Index 2.1 (0-4) 11/25/16 05:08 Troponin T 1.450 ng/mL (0.00-0.029) H* 11/25/16 08:01 NT-Pro-B Natriuret Pep 28984 pg/mL (0-900) H 11/25/16 Unknown Triglycerides 91 mg/dL (2-149) 11/25/16 05:08 Cholesterol 105 mg/dL (50-199) 11/25/16 05:08 LDL Cholesterol Direct 56 mg/dL (50-130) 11/25/16 05:08 HDL Cholesterol 31 mg/dL (40-59) L 11/25/16 05:08 Cholesterol/HDL Ratio 3.38 % 11/25/16 05:08 Fluid Type Paracentesis 11/26/16 Unknown Fluid Color Red 11/26/16 Unknown Fluid Appearance Turbid 11/26/16 Unknown Fluid WBC 0 /mm3 11/26/16 Unknown Fluid RBC 604619 /mm3 11/26/16 Unknown Fluid Seg Neutrophils 0 % 11/26/16 Unknown Fluid Lymphocytes 3 % 11/26/16 Unknown Fluid Reactive Lymphs 0 % 11/26/16 Unknown Fluid Monocytes 2 % 11/26/16 Unknown Fluid Eosinophils 0 % 11/26/16 Unknown Fluid Basophils 0 % 11/26/16 Unknown HIV 1&2 Antibody Rapid Non react (Non React) 11/26/16 16:19 HIV P24 Antigen Non react (Non React) 11/26/16 16:19
--- NOTE | 2016-11-27 15:24 | Discharge Summary ---
Providers - Providers Date of Admission: 11/25/16 11:20 Attending physician: FILEMON CAREY MD 11/25/16 13:35 Consult to Physician [CONS] Routine Consulting Provider: DANIELLE FLORES Reason For Exam: CP, pt known to you Place consult to:: Shannan MARION Notified:: a service Phone number called:: [phone] Was contact made?: Yes Time called:: 14:42 11/25/16 13:41 Consult to Physician [CONS] Routine Consulting Provider: JAJA WOODARD Reason For Exam: esrd, pt known to you Place consult to:: Mckinley MARION Notified:: a service Phone number called:: [phone] Was contact made?: Yes Time called:: 14:56 11/25/16 13:42 Consult to Physician [CONS] Routine Consulting Provider: PALOMO ZAPATA Reason For Exam: ascites, cirrhosis Place consult to:: Dr. Eddie Zapata Notified:: a service Phone number called:: [phone] Was contact made?: Yes Time called:: 15:03 11/25/16 13:46 Consult to Physician [CONS] Routine Consulting Provider: MARY ORTIZ Reason For Exam: HAP? in ESRD pt Place consult to:: Mela MARION Notified:: yes Phone number called:: [phone] Was contact made?: Yes If yes, spoke with:: Dr Terry Time called:: 16:22 Primary care physician: MEMBERSHIP CORRESPONDENT Hospitalization Reason for admission: Chest pain, ESRD on H/D Condition: Stable Hospital course: Patient is a 56-year-old man with a history of ESRD on hemodialysis TTS, CHF, hypertension, dyslipidemia, type 2 diabetes mellitus, COPD, tobacco dependency, alcohol abuse with hepatitis and recurrent ascites status post 2 paracentesis last month who presents to emergency department with complaint of moderate nonradiating, constant substernal chest pains described as indigestion with shortness of breath, productive cough with chills, no fever and intermittent nausea with vomiting since yesterday around 3 PM after the patient completed his dialysis. He took some [place] for his chest discomfort without any relief. Patient was just discharged from here 11/14/2016. Chest x-ray read as right basilar pneumonia. Patient was treated with IV antibiotics for pneumonia, and continued his hemodialysis and treated for CHF. Patient showed improvement and discharged home. Patient was hemodynamically stable at the time of discharge. Patient's questions and concerns were answered at the bedside. Disposition: DC-01 TO HOME OR SELFCARE Time spent for discharge: 31 minutes - Discharge Diagnoses (1) Acute exacerbation of CHF (congestive heart failure) Status: Acute Qualifiers: Congestive heart failure type: unspecified congestive heart failure type Qualified Code(s): I50.9 - Heart failure, unspecified (2) Aspiration pneumonia Status: Acute Qualifiers: Aspiration pneumonia type: A Laterality: right Lung location: lower lobe of lung (3) Chest pain Status: Acute Qualifiers: Chest pain type: unspecified Ischemic chest pain type: I Qualified Code(s ): R07.9 - Chest pain, unspecified (4) Rhabdomyolysis Status: Acute Qualifiers: Rhabdomyolysis type: R Encounter type: E (5) Shortness of breath Status: Acute (6) Anemia in CKD (chronic kidney disease) Status: Chronic Qualifiers: Chronic kidney disease stage: C Core Measure Documentation - Palliative Care Palliative Care/ Comfort Measures: Not Applicable - Core Measures Any of the following diagnoses?: none Exam - Physical Exam Narrative exam: Not in cardiopulmonary distress. The patient appeared well nourished and normally developed. Vital signs as documented. Head exam is unremarkable. No scleral icterus . Neck is without jugular venous distension, thyromegaly, or carotid bruits. Lungs are clear to auscultation. Cardiac exam reveals regular rate and Rhythm. First and second heart sounds normal. No murmurs, rubs or gallops. Abdominal exam reveals normal bowel sounds, no masses, no organomegaly and no aortic enlargement. Extremities are nonedematous and both femoral and pedal pulses are normal. 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 No focal weakness. - Constitutional Vitals: Temp Pulse Resp BP Pulse Ox 98.5 F 93 H 20 144/93 95 11/27/16 13:39 11/27/16 13:45 11/27/16 13:39 11/27/16 13:45 11/27/16 07:25 Plan Activity: no restrictions Weight Bearing Status: Full Weight Bearing Diet: low cholesterol, low salt Follow up with: PRIMARY MD NANCI [Primary Care Provider] - 3-5 Days
[2016-11-27 19:54] VITALS: BP 157/82
[2016-11-28] MEDS ORDERED: HEPARIN SUB-Q SCH (10:00)
[2016-11-28 20:02] LABS: Myeloperoxidase Antibody <1.0 AI (<1.0)
== END 2016-11-27 18:04 | disposition home or self-care (01) | DRG 871 ==
LOC: ED 04:45 → 4A 11:20
PROVIDERS: ADMIT Internal Medicine; ATTEND Internal Medicine
PROC: 0W9G3ZX Drainage of Peritoneal Cavity, Percutaneous Approach, Diagnostic (ICD-10-PCS; principal; 2016-11-27)
DX: A41.9 Sepsis, unspecified organism (principal); J69.0 Pneumonitis due to inhalation of food and vomit; N18.6 End stage renal disease; I13.2 Hypertensive heart and chronic kidney disease with heart failure and with stage 5 chronic kidney disease, or end stage renal disease; I50.22 Chronic systolic (congestive) heart failure; I42.9 Cardiomyopathy, unspecified; K92.2 Gastrointestinal hemorrhage, unspecified; M62.82 Rhabdomyolysis; E11.22 Type 2 diabetes mellitus with diabetic chronic kidney disease; Z85.46 Personal history of malignant neoplasm of prostate; Z99.2 Dependence on renal dialysis; K21.9 Gastro-esophageal reflux disease without esophagitis; E78.5 Hyperlipidemia, unspecified; Z79.82 Long term (current) use of aspirin; Z88.6 Allergy status to analgesic agent; Z88.8 Allergy status to other drugs, medicaments and biological substances; Z91.013 Allergy to seafood; F17.200 Nicotine dependence, unspecified, uncomplicated; J44.9 Chronic obstructive pulmonary disease, unspecified; D63.1 Anemia in chronic kidney disease; K70.31 Alcoholic cirrhosis of liver with ascites
CPT/HCPCS: 36415; 49083; 71010; 80048; 80061; 82040; 82140; 82550; 82553; 82962; 83735; 83880; 84160; 84484; 85025; 85027; 85379; 85610; 85730; 86021; 86403; 87040; 87070; 87116; 87205; 87806; 88112; 88305; 89051; 93005; 93010; 94640; 96374; 96375; J0360; J0885; J1815; J1956; J2405; J2543; J2765; J2930; J3370; J7030; J7040

== ENCOUNTER 2016-12-07 14:40 | Inpatient (IN) | payer MEDICARE ==
[2016-12-07 15:20] LABS: Hematocrit 26.1 % (35.5-45.6); Hemoglobin 8.3 gm/dl (11.8-15.2); Red Blood Count 3.12 M/mm3 (3.65-5.03); White Blood Count 7.9 K/mm3 (4.5-11.0)
[2016-12-07 15:21] LABS: Mean Corpuscular HGB Conc 32 % (32-34); Mean Corpuscular Hemoglobin 27 pg (28-32); Mean Corpuscular Volume 84 fl (84-94); Platelet Count 275 K/mm3 (140-440); Red Cell Distribution Width 19.7 % (13.2-15.2)
[2016-12-07 15:22] LABS: Basophils % (Auto) 0.4 % (0.0-1.8); Eosinophils % (Auto) 4.4 % (0.0-4.3)
[2016-12-07 15:30] LABS: BUN/Creatinine Ratio 7.67; Calcium 7.7 mg/dL (8.4-10.2); Chloride 91.8 mmol/L (98-107); Potassium 5.6 mmol/L (3.6-5.0)
--- NOTE | 2016-12-07 16:23 | XRay Report ---
Chest 2 views: History: Shortness of breath. Findings: Cardiomegaly. Trachea is midline. Minimal right pleural effusion. Mild pulmonary venous congestion. No consolidation or pneumothorax. Impression: Mild pulmonary venous congestion with minimal right pleural effusion.
--- NOTE | 2016-12-07 17:27 | Emergency Department Report ---
ED Shortness of Breath HPI - General Chief Complaint: Dyspnea/Respdistress Stated Complaint: NEEDS DIALYSIS Time Seen by Provider: 12/07/16 16:33 Source: EMS Mode of arrival: Stretcher Limitations: Other - History of Present Illness Initial Comments: 48-year-old male past medical history hypertension diabetes COPD ESRD on dialysis Saturday presents with complaint of several days of intermittent substernal chest discomfort shortness of breath and not having received dialysis in approximately one week. Patient is awake alert and oriented 3 does not appear to be in any significant respiratory distress. States he could not get transport to his dialysis center. MD Complaint: shortness of breath Onset/Timin -: week(s) Severity: moderate Quality: aching Consistency: intermittent Worsens With: nothing - Related Data Home Medications Medication Instructions Recorded Confirmed Last Taken Aspirin [Aspirin TAB] 81 mg PO QDAY 10/29/16 11/25/16 11/22/16 06:00 Previous Rx's Medication Instructions Recorded Last Taken Type AtorvaSTATin [Lipitor] 40 mg PO QHS #30 tablet 09/28/16 11/23/16 06:00 Rx Lisinopril [Zestril TAB] 40 mg PO QDAY #30 tablet 09/28/16 11/23/16 06:00 Rx Syring W-Ndl,Disp,Insul,0.3 ml 1 each MC ACHS #100 disp.syrin 09/28/16 11/08/16 Rx [Insulin Syringe/Needle 0.3 ML] hydrALAZINE [Apresoline TAB] 50 mg PO Q8HR #120 tablet 09/28/16 11/23/16 06:00 Rx 50 mg Carvedilol [Coreg] 25 mg PO BID 60 Days 11/14/16 11/23/16 06:00 Rx Insulin Detemir [Levemir] 5 units SUB-Q QHS 30 Days 11/14/16 11/08/16 Rx Allergies Allergy/AdvReac Type Severity Reaction Status Date / Time acetaminophen [From Percocet] Allergy Unknown Verified 11/08/16 11:28 morphine Allergy Unknown Verified 11/08/16 11:28 oxycodone Allergy Unknown Verified 11/08/16 11:28 oxycodone HCl [From Percocet] Allergy Unknown Verified 11/08/16 11:28 oxycodone terephthalate Allergy Itching Verified 11/08/16 11:28 [From Percodan] shellfish derived Allergy Unknown Verified 11/08/16 11:28 ED Review of Systems ROS: Stated complaint: NEEDS DIALYSIS Other details as noted in HPI Constitutional: denies: chills, fever Eyes: denies: eye pain, eye discharge, vision change ENT: denies: ear pain, throat pain Respiratory: shortness of breath. denies: cough, wheezing Cardiovascular: denies: chest pain, palpitations Endocrine: no symptoms reported Gastrointestinal: abdominal pain (states he has chronic abdominal pain secondary to ascites, states his ascites is improved since his last paracentesis smoking 2 weeks ago). denies: nausea, diarrhea Genitourinary: denies: urgency, dysuria Musculoskeletal: denies: back pain, joint swelling, arthralgia Skin: denies: rash, lesions Neurological: denies: headache, weakness, paresthesias Psychiatric: denies: anxiety, depression Hematological/Lymphatic: denies: easy bleeding, easy bruising ED Past Medical Hx - Past Medical History Previous Medical History?: Yes Hx Hypertension: Yes (1996) Hx Congestive Heart Failure: Yes Hx Diabetes: Yes (IDDM) Hx GERD: Yes Hx Renal Disease: Yes ( / / SAT) Hx Arthritis: Yes Hx Seizures: Yes Hx Psychiatric Treatment: Yes (depression) Hx COPD: (denies) Additional medical history: sleep apnea, erectile dysfunction, dialysis, back pain, high cholesterol - Surgical History Past Surgical History?: Yes Additional Surgical History: biopsy on prostate, fistula left arm,. HERNIA REPAIR - Social History Smoking Status: Current Every Day Smoker Substance Use Type: None - Medications Home Medications: Home Medications Medication Instructions Recorded Confirmed Last Taken Type AtorvaSTATin [Lipitor] 40 mg PO QHS #30 tablet 09/28/16 11/25/16 11/23/16 06:00 Rx Lisinopril [Zestril TAB] 40 mg PO QDAY #30 tablet 09/28/16 11/25/16 11/23/16 06: 00 Rx Syring W-Ndl,Disp,Insul,0.3 ml 1 each ACHS #100 disp.syrin 09/28/16 11/25/16 11/08/16 Rx [Insulin Syringe/Needle 0.3 ML] hydrALAZINE [Apresoline TAB] 50 mg PO Q8HR #120 tablet 09/28/16 11/25/16 06:00 Rx 50 mg Aspirin [Aspirin TAB] 81 mg PO QDAY 10/29/16 11/25/16 11/22/16 06:00 History Carvedilol [Coreg] 25 mg PO BID 60 Days 11/14/16 11/25/16 11/23/16 06:00 Rx Insulin Detemir [Levemir] 5 units SUB-Q QHS 30 Days 11/14/16 11/25/16 11/08/16 Rx ED Physical Exam - General Limitations: Other General appearance: alert, in no apparent distress - Head Head exam: Present: atraumatic, normocephalic - Eye Eye exam: Present: normal appearance, PERRL, EOMI - ENT ENT exam: Present: mucous membranes moist - Neck Neck exam: Present: normal inspection, full ROM - Respiratory Respiratory exam: Present: normal lung sounds bilaterally. Absent: respiratory distress - Cardiovascular Cardiovascular Exam: Present: regular rate, normal rhythm. Absent: systolic murmur, diastolic murmur, rubs, gallop - GI/Abdominal GI/Abdominal exam: Present: soft (abdomen is soft nontender but enlarged), distended (patient has palpable abdominal ascites but abdomen is not stiff or tense still soft in all 4 quadrants), normal bowel sounds, organomegaly ( palpable hepatomegaly) - Rectal Rectal exam: Present: deferred - exam: Present: normal inspection External exam: Present: normal external exam - Extremities Exam Extremities exam: Present: normal inspection - Back Exam Back exam: Present: normal inspection - Neurological Exam Neurological exam: Present: alert, oriented X3, CN II-XII intact, normal gait - Psychiatric Psychiatric exam: Present: normal affect, normal mood - Skin Skin exam: Present: warm, dry, intact, normal color. Absent: rash ED Course Vital Signs 12/07/16 12/07/16 12/07/16 16:47 17:03 17:05 Temperature Pulse Rate 68 Respiratory 20 18 Rate Blood Pressure 176/93 Blood Pressure [Left] O2 Sat by Pulse 97 100 100 Oximetry 12/07/16 12/07/16 12/07/16 19:00 20:00 21:00 Temperature 98 F Pulse Rate 72 74 78 Respiratory 20 18 18 Rate Blood Pressure Blood Pressure 175/98 180/96 178/97 [Left] O2 Sat by Pulse 100 100 99 Oximetry ED Medical Decision Making - Lab Data Result diagrams: 12/07/16 15:00 12/07/16 20:02 - Medical Decision Making A/P: Need for hemodialysis, elevated troponin from baseline 1-case discussed with Dr. Sen on-call backend java developer who will set up dialysis for the patient 2-case discussed with ED Attending Dr. Braden 3-patient has elevated troponin from baseline and although this is in the setting of ESRD as patient does complain of symptomatic chest discomfort with associated shortness of breath it is possible patient may be experiencing an STEMI. Case discussed with cardiology Dr. Timmons today who will also examine patient during admission. We'll empirically heparinize patient for now. 4- cocktail ordered for hyperkalemia, we will recheck BMP 5- patient admitted to the hospital, case discussed with Dr. Adam on-call hospitalist Critical care attestation.: If time is entered above; I have spent that time in minutes in the direct care of this critically ill patient, excluding procedure time. ED Disposition Clinical Impression: Elevated troponin, ESRD (end stage renal disease) on dialysis, Hyperkalemia Disposition: OP ADMIT IP TO THIS HOSP Is pt being admited?: Yes Does the pt Need Aspirin: No Condition: Stable
[2016-12-07] MEDS ORDERED: KIONEX PO ONE (17:50)
[2016-12-07] MEDS ORDERED: D50W (25GM) IV ONE (17:51)
[2016-12-07] MEDS ORDERED: PROVENTIL IH ONE (17:51)
[2016-12-07] MEDS ORDERED: CALCIUM GLUCONATE 1,000 MG in NACL 0.9% 100 ML IV ONE (18:00)
--- NOTE | 2016-12-07 18:52 | Admit Criteria Form ---
Admission Criteria Documentation: RENAL FAILURE, CHRONIC Clinical Indications for Admission to Inpatient Care (Place 'X' for any and all applicable criteria): Admission is indicated for ANY ONE of the following (1)(2)(3)(4)(5): [X]I. Inpatient admission required rather than observation care (Use Renal Failure, Chronic: Observation Care Criteria as appropriate) because of ANY ONE of the following: [X]a) Volume overload or uremic symptoms (eg, clinically significant pulmonary edema, hypertension, pericarditis, acidosis) too severe for, or not responsive (eg, for over 24 hours) to emergency department or observation care dialysis or treatment regimen (11) [ ]b) Hemodynamic instability that is severe or persistent [ ]c) Respiratory distress that is severe or persistent (11) [ ]d) Clinically significant electrolyte abnormality that requires inpatient care (eg,hyperkalemia with severe ECG findings)[B] [ ]e) Supplement O2 or respiratory therapy for over 24hrs that is performable only in acute inpatient setting [ ]f) Continuous IV infusion of anticoagulation, platelet inhibitor, vasoactive, or Antiarrhythmic medication (15), [ ]g) Pulmonary artery catheter monitoring [ ]h) Temporary pacemaker placement [ ]i) Emergent pericardiocentesis [ ]j) Other condition, treatment or monitoring requiring inpatient admission [ ]II. Unexplained syncope [A] [ ]III. Recurrent seizures [ ]IV. Severe infections not treatable in outpatient setting (eg, peritonitis)(9 ) [ ]V. Cardiac arrhythmias of immediate concern [ ]. Encephalopathy [ ]VII.Bleeding abnormalities (eg, platelet dysfunction) with active (eg, gastrointestinal) bleeding Extended stay beyond goal length of stay may be needed for (3)(4)(35)(36): [ ]a) Continuing uremic complications [ ]b) Comorbidities or complications The original [email or web address] content created by [email or web address] has been revised. The portions of the content which have been revised are identified through the use of italic text or in bold, and [employer] has neither reviewed nor approved the modified material. All other unmodified content is copyright [email or web address]. Please see references footnoted in the original [employer] edition 2016 Admission Criteria Met: Yes
--- NOTE | 2016-12-07 19:14 | History and Physical Report ---
History of Present Illness Chief complaint: Im swollen and i cant breathe History of present illness: 56 YO Male with ESRD on HD(T,R,Sa), DM, GERD, OA, Seizure Disorder, Depression, Nicotine Dependence, ZEYAD, HLD, HTN, CHF presents to ED for evaluation. Pt states that he has experienced shortness of breath and generalized edema for the past week, with worsening symptoms over the past 2 days. Pt also complians of chest discomfort after several days of heaby breathing, and intermittent coughing. Pt denies medication noncompliance, but states that he has not had dialysis for one week. Pt denief fever, chills, palpitations, NVD, syncope, BRBPR, recent ill contacts, hemoptysis, or trauma. Past History Past Medical History: arthritis, diabetes, ESRD, GERD, heart failure, hypertension, hyperlipidemia Past Surgical History: hernia repair, TURP, Other (AV fistula) Social history: , lives with family. denies: smoking, alcohol abuse, prescription drug abuse, IV drug use Family history: diabetes, hypertension Medications and Allergies Allergies Allergy/AdvReac Type Severity Reaction Status Date / Time acetaminophen [From Percocet] Allergy Unknown Verified 11/08/16 11:28 morphine Allergy Unknown Verified 11/08/16 11:28 oxycodone Allergy Unknown Verified 11/08/16 11:28 oxycodone HCl [From Percocet] Allergy Unknown Verified 11/08/16 11:28 oxycodone terephthalate Allergy Itching Verified 11/08/16 11:28 [From Percodan] shellfish derived Allergy Unknown Verified 11/08/16 11:28 Home Medications Medication Instructions Recorded Confirmed Last Taken Type AtorvaSTATin [Lipitor] 40 mg PO QHS #30 tablet 09/28/16 12/07/16 11/23/16 06:00 Rx Lisinopril [Zestril TAB] 40 mg PO QDAY #30 tablet 09/28/16 12/07/16 11/23/16 06: 00 Rx Syring W-Ndl,Disp,Insul,0.3 ml 1 each MC ACHS #100 disp.syrin 09/28/16 12/07/16 11/08/16 Rx [Insulin Syringe/Needle 0.3 ML] hydrALAZINE [Apresoline TAB] 50 mg PO Q8HR #120 tablet 09/28/16 12/07/16 06:00 Rx 50 mg Aspirin [Aspirin TAB] 81 mg PO QDAY 10/29/16 12/07/16 11/22/16 06:00 History Carvedilol [Coreg] 25 mg PO BID 60 Days 11/14/16 12/07/16 11/23/16 06:00 Rx Insulin Detemir [Levemir] 5 units SUB-Q QHS 30 Days 11/14/16 12/07/16 11/08/16 Rx Review of Systems All systems: negative Constitutional: lethargy Ears, nose, mouth and throat: no ear pain Cardiovascular: edema, shortness of breath, leg edema, no chest pain Respiratory: cough Gastrointestinal: no abdominal pain Genitourinary Male: no dysuria Rectal: no pain Musculoskeletal: no neck pain Integumentary: no rash Neurological: no head injury Psychiatric: no anxiety Endocrine: no cold intolerance Hematologic/Lymphatic: no easy bruising Allergic/Immunologic: no urticaria Exam - Constitutional Vitals: Temp Pulse Resp BP Pulse Ox 68 18 176/93 100 12/07/16 17:05 12/07/16 17:05 12/07/16 17:05 12/07/16 17:05 General appearance: Present: mild distress, cachectic, disheveled - EENT Eyes: Present: PERRL ENT: hearing intact, clear oral mucosa - Neck Neck: Present: supple, normal ROM - Respiratory Respiratory effort: labored Respiratory: bilateral: diminished - Cardiovascular Heart Sounds: Present: S1 & S2. Absent: rub, click - Extremities Extremities: pulses symmetrical, No edema Extremity abnormal: edema Peripheral Pulses: within normal limits - Abdominal General gastrointestinal: Present: soft, non-tender, non-distended, normal bowel sounds Male genitourinary: Present: normal - Integumentary Integumentary: Present: clear, warm, dry - Musculoskeletal Musculoskeletal: generalized weakness - Psychiatric Psychiatric: appropriate mood/affect, intact judgment & insight - Neurologic Neurologic: CNII-XII intact, moves all extremities Results - Labs CBC & Chem 7: 12/07/16 15:00 12/08/16 03:17 Labs: Abnormal lab results 12/07/16 12/07/16 Range/Units 15:00 15:00 RBC 3.12 L (3.65-5.03) M/mm3 Hgb 8.3 L (11.8-15.2) gm/dl Hct 26.1 L (35.5-45.6) % MCH 27 L (28-32) pg RDW 19.7 H (13.2-15.2) % Lymph % (Auto) 10.6 L (13.4-35.0) % [place] % (Auto) 7.9 H (0.0-7.3) % Eos % (Auto) 4.4 H (0.0-4.3) % Lymph # 0.8 L (1.2-5.4) K/mm3 Seg Neutrophils % 76.7 H (40.0-70.0) % Sodium 136 L (137-145) mmol/L Potassium 5.6 H (3.6-5.0) mmol/L Chloride 91.8 L (98-107) mmol/L BUN 86 H (9-20) mg/dL Creatinine 11.2 H (0.8-1.5) mg/dL Glucose 216 H (75-100) mg/dL Calcium 7.7 L (8.4-10.2) mg/dL Troponin T 2.210 H* (0.00-0.029) ng/mL LDL Cholesterol Direct 45 L (50-130) mg/dL HDL Cholesterol 36 L (40-59) mg/dL Assessment and Plan ESRD: Nephrology consulted, dialysis as per renal service, Fluid Overload: Monitor UOP q shift, fluid restriction, negative fluid balance, dialysis as per renal team. Acute Respiratory Failure: Suspect secondary to fluid overload, dialysis as per renal team, supplemental oxygen, nebs, aspiration precautions. DM: ADA diet, insulin, accu check
[2016-12-07] MEDS ORDERED: ZOFRAN IV PRN (19:16)
[2016-12-07] MEDS ORDERED: DUONEB *Not for PRN Use IH (19:16)
[2016-12-07] MEDS ORDERED: MILK OF MAGNESIA PO PRN (19:16)
[2016-12-07] MEDS ORDERED: DULCOLAX PR PRN (19:16)
[2016-12-07] MEDS ORDERED: TYLENOL PO PRN (19:16)
[2016-12-07] MEDS ORDERED: PROVENTIL IH PRN (19:26)
[2016-12-07] MEDS ORDERED: NACL 0.9% 100 ML IV PRN (19:53)
--- NOTE | 2016-12-07 19:53 | Event Note ---
Discussed with Er MD Morales admitted after missing dialysis Some SOb Spo2 100 % K is 5.6 Elevated troponin suspicious for cardiac event Follow up with cardiology HD gentle today
--- NOTE | 2016-12-07 19:56 | Consultation ---
History of Present Illness - History of Present Illness Thank you for the consultation Patient was evaluated today Also discussed with patient's with his consent was emergency contact According to her patient is a full code she is the power of energy attorney Assessment and plan End-stage nausea patient was very poorly compliant did not go for 3 dialysis treatment presenting with, symptoms of uremia shortness of breath severe edema at least 8-10 kg of fluid on clinically Hyperkalemia mild Troponin which is higher than ESRD standard rule out any possibility of non-ST elevation [place] cardiology following Accelerated hypertension requires better control volume control Poorly compliant patient Anemia and end-stage renal disease to monitor and follow Overall prognosis very poor due to multiple comorbidities Mortality risk: High explained to the patient as well as his at length they 're aware We'll continue to follow recommendation from renal standpoint Medications and Allergies Allergies Allergy/AdvReac Type Severity Reaction Status Date / Time acetaminophen [From Percocet] Allergy Unknown Verified 11/08/16 11:28 morphine Allergy Unknown Verified 11/08/16 11:28 oxycodone Allergy Unknown Verified 11/08/16 11:28 oxycodone HCl [From Percocet] Allergy Unknown Verified 11/08/16 11:28 oxycodone terephthalate Allergy Itching Verified 11/08/16 11:28 [From Percodan] shellfish derived Allergy Unknown Verified 11/08/16 11:28 Home Medications Medication Instructions Recorded Confirmed Last Taken Type AtorvaSTATin [Lipitor] 40 mg PO QHS #30 tablet 09/28/16 11/25/16 11/23/16 06:00 Rx Lisinopril [Zestril TAB] 40 mg PO QDAY #30 tablet 09/28/16 11/25/16 11/23/16 06: 00 Rx Syring W-Ndl,Disp,Insul,0.3 ml 1 each ACHS #100 disp.syrin 09/28/16 11/25/16 11/08/16 Rx [Insulin Syringe/Needle 0.3 ML] hydrALAZINE [Apresoline TAB] 50 mg PO Q8HR #120 tablet 09/28/16 11/25/16 06:00 Rx 50 mg Aspirin [Aspirin TAB] 81 mg PO QDAY 10/29/16 11/25/16 11/22/16 06:00 History Carvedilol [Coreg] 25 mg PO BID 60 Days 11/14/16 11/25/16 11/23/16 06:00 Rx Insulin Detemir [Levemir] 5 units SUB-Q QHS 30 Days 11/14/16 11/25/16 11/08/16 Rx Active Meds: Active Medications Acetaminophen (Tylenol) 650 mg PO Q4H PRN PRN Reason: Pain MILD(1-3)/Fever >100.5/PADILLA Albuterol (Proventil) 2.5 mg IH Q4HRT PRN PRN Reason: Wheezing Bisacodyl (Dulcolax) 10 mg DC QDAY PRN PRN Reason: Constipation unrelieved by MOM Sodium Chloride (Nacl 0.9%) 100 mls @ 999 mls/hr IV EDGARDO PRN PRN Reason: Hypotension Magnesium Hydroxide (Milk Of Magnesia) 30 ml PO Q4H PRN PRN Reason: Constipation Ondansetron HCl (Zofran) 4 mg IV Q8H PRN PRN Reason: N/V unrelieved by Reglan Exam - Vital Signs Vital signs: Vital Signs Resp Pulse Ox 20 97 12/07/16 16:47 12/07/16 16:47 Results - Lab Results 12/07/16 15:00 12/07/16 20:02 Most recent lab results Calcium 7.7 mg/dL (8.4-10.2) L 12/07/16 15:00 Phosphorus 4.40 mg/dL (2.5-4.5) 12/07/16 15:00
[2016-12-07 20:35] LABS: BUN/Creatinine Ratio 8.18; Calcium 7.8 mg/dL (8.4-10.2); Chloride 93.3 mmol/L (98-107); Potassium 5.8 mmol/L (3.6-5.0)
[2016-12-08] MEDS ORDERED: NACL 0.9 (PRIMING MACHINE ONLY DIALYSIS) MC ONE (01:18)
[2016-12-08 04:40] LABS: BUN/Creatinine Ratio 7.12; Calcium 7.8 mg/dL (8.4-10.2); Chloride 94.8 mmol/L (98-107); Potassium 4.9 mmol/L (3.6-5.0)
[2016-12-08] MEDS: ALUM-MAG HYDROX-SIMETH 200-200-20MG/5ML PO PRN (06:59)
--- NOTE | 2016-12-08 11:16 | Progress Note ---
Subjective Interval history: Patient was seen today for follow-up Tolerating dialysis treatment fairly well yesterday Currently doing somewhat better more alert awake Events of 24 hours noted Vitals labs intake output medications were reviewed HEENT; oral mucosa moist uremic odor present Neck: Supple JVD present Heart: Regular rate and rhythm S1 and S2 heard Abdomen: Soft nontender no hepatojugular reflux Extremity edema approximately 2+ fistula is working well has chronic aneurysm Assessment and plan End stage renal disease patient did receive his hemodialysis treatment yesterday Will need to dialyze him today again due to significant volume overload Possibility of non-ST elevation [place] could not be ruled out Patient needs to be seen and followed by cardiology Anemia in end-stage renal disease to monitor and follow Secondary hyperparathyroidism to monitor follow-up phosphorus and PTH Noncompliant patient counseling and education has been done Fistula at some point will need to be evaluated by vascular surgery Adequate counseling and education was done regarding renal related issue patient does have good understanding of the current health situation Plan of care has also been discussed with patient's at length prognosis is guarded to poor long-term due to noncompliance Objective - Vital Signs Vital signs: Vital Signs - 12hr 12/07/16 12/07/16 12/08/16 23:30 23:45 00:00 Temperature Pulse Rate 91 H 92 H 99 H Pulse Rate [ Right From Monitor] Respiratory Rate Blood Pressure 157/95 163/96 167/100 Blood Pressure [Right Arm] O2 Sat by Pulse Oximetry 12/08/16 12/08/16 12/08/16 00:15 00:30 00:45 Temperature Pulse Rate 100 H 83 94 H Pulse Rate [ Right From Monitor] Respiratory Rate Blood Pressure 168/97 152/103 165/96 Blood Pressure [Right Arm] O2 Sat by Pulse Oximetry 12/08/16 12/08/16 12/08/16 01:00 01:15 01:30 Temperature Pulse Rate 93 H 102 H 78 Pulse Rate [ Right From Monitor] Respiratory Rate Blood Pressure 168/96 157/91 152/93 Blood Pressure [Right Arm] O2 Sat by Pulse Oximetry 12/08/16 12/08/16 12/08/16 01:45 02:15 02:30 Temperature 98.3 F 99.0 F Pulse Rate 95 H 103 H Pulse Rate [ 93 H Right From Monitor] Respiratory 20 18 Rate Blood Pressure 166/73 159/103 Blood Pressure 178/87 [Right Arm] O2 Sat by Pulse 96 Oximetry 12/08/16 12/08/16 12/08/16 04:00 06:59 08:00 Temperature 98.6 F 98.3 F Pulse Rate Pulse Rate [ 88 93 H Right From Monitor] Respiratory 18 18 20 Rate Blood Pressure Blood Pressure 172/85 164/89 [Right Arm] O2 Sat by Pulse 94 93 Oximetry 12/08/16 09:02 Temperature Pulse Rate Pulse Rate [ Right From Monitor] Respiratory Rate Blood Pressure Blood Pressure [Right Arm] O2 Sat by Pulse 94 Oximetry - Lab 12/07/16 15:00 12/08/16 03:17 Most recent lab results Calcium 7.8 mg/dL (8.4-10.2) L 12/08/16 03:17 Phosphorus 4.40 mg/dL (2.5-4.5) 12/07/16 15:00
--- NOTE | 2016-12-08 11:30 | Progress Note ---
Assessment and Plan Assessment and plan: --Acute on chronic respiratory failure secondary to fluid overload Supportive care, hemodialysis per schedule, oxygen titrated to O2 sats more than 90% --Chest pain/evaluation for coronary artery disease Current continue current cardiac medications, we'll trend cardiac enzymes, cardiology evaluation noted and appreciated Possible heart cath versus stress test if symptoms persist --End-stage renal disease on hemodialysis Nephrology following dialysis per schedule, counseling done patient strongly advised to adhere to hemodialysis medications and diet plan --Hypertension moderate control Continue Antihypertensives and when necessary medications --2 diabetes mellitus; Accu-Chek sliding scale coverage and ADA diet and insulin as needed --Dyslipidemia; continue lipid-lowering medications DVT prophylaxis with heparin Closely monitor the patient and her chest management as needed Consults and recommendations portion appreciated Possible discharge in 1-2 days if stable Plan of care discussed with the patient as well as his nurse History Interval history: Patient seen and evaluate her medical records reviewed Patient feels slightly better, complains of intermittent chest pain Alert awake oriented 3 not in acute distress, vital signs reviewed Hospitalist Physical - Constitutional Vitals: Temp Pulse Resp BP Pulse Ox 98.3 F 93 H 20 164/89 94 12/08/16 08:00 12/08/16 08:00 12/08/16 08:00 12/08/16 08:00 12/08/16 09:02 General appearance: Present: no acute distress, cachectic, disheveled - EENT Eyes: Present: PERRL, EOM intact - Neck Neck: Present: supple, normal ROM - Respiratory Respiratory effort: normal Respiratory: bilateral: diminished, rales, negative: rhonchi, wheezing - Cardiovascular Rhythm: regular Heart Sounds: Present: S1 & S2 - Extremities Extremities: no ischemia, No edema - Abdominal General gastrointestinal: soft, non-tender, non-distended, normal bowel sounds - Integumentary Integumentary: Present: clear, warm - Psychiatric Psychiatric: appropriate mood/affect, cooperative - Neurologic Neurologic: CNII-XII intact, moves all extremities Results - Labs CBC & Chem 7: 12/08/16 11:52 12/08/16 03:17 Labs: Laboratory Last Values WBC 7.9 K/mm3 (4.5-11.0) 12/07/16 15:00 RBC 3.12 M/mm3 (3.65-5.03) L 12/07/16 15:00 Hgb 8.3 gm/dl (11.8-15.2) L 12/07/16 15:00 Hct 26.1 % (35.5-45.6) L 12/07/16 15:00 MCV 84 fl (84-94) 12/07/16 15:00 MCH 27 pg (28-32) L 12/07/16 15:00 MCHC 32 % (32-34) 12/07/16 15:00 RDW 19.7 % (13.2-15.2) H 12/07/16 15:00 Plt Count 275 K/mm3 (140-440) 12/07/16 15:00 Lymph % (Auto) 10.6 % (13.4-35.0) L 12/07/16 15:00 [place] % (Auto) 7.9 % (0.0-7.3) H 12/07/16 15:00 Eos % (Auto) 4.4 % (0.0-4.3) H 12/07/16 15:00 Baso % (Auto) 0.4 % (0.0-1.8) 12/07/16 15:00 Lymph # 0.8 K/mm3 (1.2-5.4) L 12/07/16 15:00 [place] # 0.6 K/mm3 (0.0-0.8) 12/07/16 15:00 Eos # 0.3 K/mm3 (0.0-0.4) 12/07/16 15:00 Baso # 0.0 K/mm3 (0.0-0.1) 12/07/16 15:00 Seg Neutrophils % 76.7 % (40.0-70.0) H 12/07/16 15:00 Seg Neutrophils # 6.1 K/mm3 (1.8-7.7) 12/07/16 15:00 Sodium 136 mmol/L (137-145) L 12/08/16 03:17 Potassium 4.9 mmol/L (3.6-5.0) 12/08/16 03:17 Chloride 94.8 mmol/L (98-107) L 12/08/16 03:17 Carbon Dioxide 23 mmol/L (22-30) 12/08/16 03:17 Anion Gap 23 mmol/L 12/08/16 03:17 BUN 47 mg/dL (9-20) H 12/08/16 03:17 Creatinine 6.6 mg/dL (0.8-1.5) H 12/08/16 03:17 Estimated GFR 11 ml/min 12/08/16 03:17 BUN/Creatinine Ratio 7.12 % 12/08/16 03:17 Glucose 139 mg/dL (75-100) H 12/08/16 03:17 POC Glucose 236 (70-105) H 12/08/16 06:35 Calcium 7.8 mg/dL (8.4-10.2) L 12/08/16 03:17 Phosphorus 4.40 mg/dL (2.5-4.5) 12/07/16 15:00 Troponin T 2.210 ng/mL (0.00-0.029) H* 12/07/16 15:00 Triglycerides 77 mg/dL (2-149) 12/07/16 15:00 Cholesterol 96 mg/dL (50-199) 12/07/16 15:00 LDL Cholesterol Direct 45 mg/dL (50-130) L 12/07/16 15:00 HDL Cholesterol 36 mg/dL (40-59) L 12/07/16 15:00 Cholesterol/HDL Ratio 2.66 % 12/07/16 15:00
[2016-12-08] MEDS ORDERED: PNEUMOVAX 23 IM ONE (12:00)
[2016-12-08 12:29] LABS: Basophils % (Auto) 0.5 % (0.0-1.8); Eosinophils % (Auto) 3.8 % (0.0-4.3); Hemoglobin 8.6 gm/dl (11.8-15.2); Mean Corpuscular HGB Conc 32 % (32-34); Mean Corpuscular Hemoglobin 27 pg (28-32); Mean Corpuscular Volume 85 fl (84-94); Platelet Count 270 K/mm3 (140-440); Red Blood Count 3.19 M/mm3 (3.65-5.03); Red Cell Distribution Width 19.7 % (13.2-15.2); White Blood Count 7.9 K/mm3 (4.5-11.0)
--- NOTE | 2016-12-08 15:10 | Consultation ---
History of Present Illness Consult date: 12/08/16 Consult reason: abnormal cardiac enzymes, chest pain History of present illness: 48-year-old male past medical history hypertension diabetes COPD ESRD on dialysis Saturday presents with complaint of several days of intermittent substernal chest discomfort shortness of breath and not having received dialysis in approximately one week. Patient is awake alert and oriented 3 does not appear to be in any significant respiratory distress. States he could not get transport to his dialysis center. Patient has no prior history of [place]. Past History Past Medical History: arthritis, diabetes, ESRD, GERD, heart failure, hypertension, hyperlipidemia Past Surgical History: hernia repair, TURP, Other (AV fistula) Social history: , lives with family. denies: smoking, alcohol abuse, prescription drug abuse, IV drug use Family history: diabetes, hypertension Medications and Allergies Allergies Allergy/AdvReac Type Severity Reaction Status Date / Time acetaminophen [From Percocet] Allergy Unknown Verified 11/08/16 11:28 morphine Allergy Unknown Verified 11/08/16 11:28 oxycodone Allergy Unknown Verified 11/08/16 11:28 oxycodone HCl [From Percocet] Allergy Unknown Verified 11/08/16 11:28 oxycodone terephthalate Allergy Itching Verified 11/08/16 11:28 [From Percodan] shellfish derived Allergy Unknown Verified 11/08/16 11:28 Home Medications Medication Instructions Recorded Confirmed Last Taken Type AtorvaSTATin [Lipitor] 40 mg PO QHS #30 tablet 09/28/16 12/07/16 11/23/16 06:00 Rx Lisinopril [Zestril TAB] 40 mg PO QDAY #30 tablet 09/28/16 12/07/16 11/23/16 06: 00 Rx Syring W-Ndl,Disp,Insul,0.3 ml [address] [facility] #100 disp.syrin 09/28/16 12/07/16 11/08/16 Rx [Insulin Syringe/Needle 0.3 ML] hydrALAZINE [Apresoline TAB] 50 mg PO Q8HR #120 tablet 09/28/16 12/07/16 06:00 Rx 50 mg Aspirin [Aspirin TAB] 81 mg PO QDAY 10/29/16 12/07/16 11/22/16 06:00 History Carvedilol [Coreg] 25 mg PO BID 60 Days 11/14/16 12/07/16 11/23/16 06:00 Rx Insulin Detemir [Levemir] 5 units SUB-Q QHS 30 Days 11/14/16 12/07/16 11/08/16 Rx Active Meds: Active Medications Acetaminophen (Tylenol) 650 mg PO Q4H PRN PRN Reason: Pain MILD(1-3)/Fever >100.5/PADILLA Last Admin: 12/08/16 06:59 Dose: 650 mg Al Hydrox/Mg Hydrox/Simethicone (Alum-Mag Hydrox-Simeth [phone]/5ml) 30 ml PO BID PRN PRN Reason: Indigestion Last Admin: 12/08/16 06:59 Dose: 30 ml Albuterol (Proventil) 2.5 mg IH Q4HRT PRN PRN Reason: Wheezing Bisacodyl (Dulcolax) 10 mg VT QDAY PRN PRN Reason: Constipation unrelieved by MOM Sodium Chloride (Nacl 0.9%) 100 mls @ 999 mls/hr IV EDGARDO PRN PRN Reason: Hypotension Insulin Aspart (Novolog) 10 units SUB-Q AC EMMA Insulin Detemir (Levemir) 10 units SUB-Q QHS EMMA Insulin Human Regular (Novolin R) 0 units SUB-Q ACHS EMMA PRN Reason: Protocol Magnesium Hydroxide (Milk Of Magnesia) 30 ml PO Q4H PRN PRN Reason: Constipation Ondansetron HCl (Zofran) 4 mg IV Q8H PRN PRN Reason: N/V unrelieved by Reglan Last Admin: 12/08/16 06:59 Dose: 4 mg Review of Systems Cardiovascular: chest pain, dyspnea on exertion, no palpitations Physical Examination Vital Signs Resp Pulse Ox 20 97 12/07/16 16:47 12/07/16 16:47 General appearance: no acute distress HEENT: Positive: Normocephaly, Mucus Membranes Moist Neck: Positive: neck supple. Negative: JVD/HJR Cardiac: Positive: Regular Rate, S4 Lungs: Positive: clear to auscultation, Normal Breath Sounds Abdomen: Positive: Active Bowel Sounds. Negative: Organomegaly Extremities: Present: normal Results 12/08/16 11:52 12/08/16 03:17 Troponin 2.21 CBC 12/08/16 Range/Units 11:52 WBC 7.9 (4.5-11.0) K/mm3 RBC 3.19 L (3.65-5.03) M/mm3 Hgb 8.6 L (11.8-15.2) gm/dl Hct 27.0 L (35.5-45.6) % Plt Count 270 (140-440) K/mm3 Lymph # 0.6 L (1.2-5.4) K/mm3 [place] # 0.6 (0.0-0.8) K/mm3 Eos # 0.3 (0.0-0.4) K/mm3 Baso # 0.0 (0.0-0.1) K/mm3 Comprehensive Metabolic Panel 12/07/16 12/08/16 Range/Units 20:02 03:17 Sodium 138 136 L (137-145) mmol/L Potassium 5.8 H 4.9 (3.6-5.0) mmol/L Chloride 93.3 L 94.8 L (98-107) mmol/L Carbon Dioxide 26 23 (22-30) mmol/L BUN 90 H 47 H (9-20) mg/dL Creatinine 11.0 H 6.6 H (0.8-1.5) mg/dL Glucose 219 H 139 H (75-100) mg/dL Calcium 7.8 L 7.8 L (8.4-10.2) mg/dL EKG interpretations - Telemetry EKG Rhythm: Sinus Rhythm - EKG Sinus rhythms and dysrhythmias: sinus rhythm (Non specific ST-T changes.) Assessment and Plan Elevated troponin level. Plan; Trend two more sets. If decreasing with HD will do Lexiscan. If not do coronary arteriogram on Saturday. Echocardiogram. May continue HD. ESRD: missed few days of dialysis. DM 2 Hypertension.
[2016-12-08] MEDS: APRESOLINE PO SCH (18:00)
[2016-12-08] MEDS: NOVOLOG SUB-Q SCH (18:03)
[2016-12-08] MEDS: COREG PO SCH (21:25)
[2016-12-08] MEDS ORDERED: LEVEMIR SUB-Q SCH (22:00)
[2016-12-09] MEDS: APRESOLINE PO SCH ×3 (02:33→17:30)
[2016-12-09 06:52] LABS: Basophils % (Auto) 0.5 % (0.0-1.8); Eosinophils % (Auto) 6.6 % (0.0-4.3); Hematocrit 25.2 % (35.5-45.6); Hemoglobin 8.1 gm/dl (11.8-15.2); Mean Corpuscular HGB Conc 32 % (32-34); Mean Corpuscular Hemoglobin 27 pg (28-32); Mean Corpuscular Volume 84 fl (84-94); Platelet Count 256 K/mm3 (140-440); Red Blood Count 2.99 M/mm3 (3.65-5.03); Red Cell Distribution Width 19.5 % (13.2-15.2); White Blood Count 6.7 K/mm3 (4.5-11.0)
[2016-12-09] MEDS: NOVOLOG SUB-Q SCH ×5 (09:50→21:23)
[2016-12-09] MEDS ORDERED: ZESTRIL PO SCH (10:00)
[2016-12-09] MEDS ORDERED: ASPIRIN PO SCH (10:00)
[2016-12-09] MEDS: COREG PO SCH ×2 (13:23→21:13)
[2016-12-09] MEDS: HALFPRIN EC PO SCH (13:23)
--- NOTE | 2016-12-09 13:24 | Progress Note ---
Assessment and Plan Elevated troponin level. Plan; Trend two more sets.Troponin is not done. Will re-order. If decreasing with HD will do Lexiscan. If not do coronary arteriogram on Saturday. Echocardiogram. May continue HD. ESRD: missed few days of dialysis. DM 2 Hypertension. Subjective Date of service: 12/09/16 Interval history: No chest pain. Objective Vital Signs Temp Pulse Pulse Resp BP BP Pulse Ox 12/09/16 10:00 94 12/09/16 08:00 98.4 F 67 20 140/80 98 12/09/16 02:33 85 160/92 12/08/16 21:25 168/92 12/08/16 21:24 98 12/08/16 20:54 98.2 F 75 18 192/101 100 12/08/16 18:00 150/86 12/08/16 16:00 98.1 F 92 H 20 150/86 97 - Physical Examination General: No Apparent Distress HEENT: Positive: Normocephaly, Mucus Membranes Moist Neck: Positive: neck supple. Negative: JVD/HJR Cardiac: Positive: Regular Rate, S4 Lungs: Positive: clear to auscultation Abdomen: Positive: Soft, Active Bowel Sounds. Negative: Organomegaly Extremities: Present: normal - Labs and Meds CBC 12/09/16 Range/Units 05:39 WBC 6.7 (4.5-11.0) K/mm3 RBC 2.99 L (3.65-5.03) M/mm3 Hgb 8.1 L (11.8-15.2) gm/dl Hct 25.2 L (35.5-45.6) % Plt Count 256 (140-440) K/mm3 Lymph # 0.6 L (1.2-5.4) K/mm3 [place] # 0.5 (0.0-0.8) K/mm3 Eos # 0.4 (0.0-0.4) K/mm3 Baso # 0.0 (0.0-0.1) K/mm3 - Telemetry EKG Rhythm: Sinus Rhythm - EKG Sinus rhythms and dysrhythmias: sinus rhythm (Non specific ST-T changes.)
--- NOTE | 2016-12-09 13:34 | Progress Note ---
Assessment and Plan Assessment and plan: --Chest pain/elevated cardiac enzymes Continue current cardiac medications, possible heart catheterization tomorrow, discussed with cardiology, --Hypoglycemic episodes; due to poor oral intake Adjust insulin dose, encourage the patient to eat regular meals D 50 as needed, monitor blood sugars --2 diabetes mellitus; Accu-Chek sliding scale coverage, ADA diet and insulin as needed --Acute on chronic respiratory failure secondary to fluid overload Supportive care, hemodialysis per schedule, oxygen titrated to O2 sats more than 90% --End-stage renal disease on hemodialysis Nephrology following dialysis per schedule, counseling done patient strongly advised to adhere to hemodialysis medications and diet plan --Hypertension moderate control Continue Antihypertensives and when necessary medications --Dyslipidemia; continue lipid-lowering medications DVT prophylaxis with heparin Closely monitor the patient and adjust management as needed Plan of care discussed with the patient as well as his nurse Possible discharge in 1-2 days if stable History Interval history: patient seen and evaluated medical records reviewed Patient is sleeping easily awakens Had 2 hypoglycemic episodes due to poor oral intake Hospitalist Physical - Constitutional Vitals: Temp Pulse Resp BP Pulse Ox 98.4 F 67 20 171/92 94 12/09/16 08:00 12/09/16 08:00 12/09/16 08:00 12/09/16 13:23 12/09/16 10:00 General appearance: Present: no acute distress, cachectic, disheveled - EENT Eyes: Present: PERRL, EOM intact - Neck Neck: Present: supple - Respiratory Respiratory effort: normal Respiratory: bilateral: diminished, negative: rales, rhonchi, wheezing - Cardiovascular Rhythm: regular Heart Sounds: Present: S1 & S2 - Extremities Extremities: no ischemia, No edema - Abdominal General gastrointestinal: soft, non-tender, non-distended, normal bowel sounds - Integumentary Integumentary: Present: clear, warm - Psychiatric Psychiatric: appropriate mood/affect, cooperative - Neurologic Neurologic: CNII-XII intact, moves all extremities Results - Labs CBC & Chem 7: 12/09/16 05:39 12/08/16 03:17 Labs: Laboratory Last Values WBC 6.7 K/mm3 (4.5-11.0) 12/09/16 05:39 RBC 2.99 M/mm3 (3.65-5.03) L 12/09/16 05:39 Hgb 8.1 gm/dl (11.8-15.2) L 12/09/16 05:39 Hct 25.2 % (35.5-45.6) L 12/09/16 05:39 MCV 84 fl (84-94) 12/09/16 05:39 MCH 27 pg (28-32) L 12/09/16 05:39 MCHC 32 % (32-34) 12/09/16 05:39 RDW 19.5 % (13.2-15.2) H 12/09/16 05:39 Plt Count 256 K/mm3 (140-440) 12/09/16 05:39 Lymph % (Auto) 8.5 % (13.4-35.0) L 12/09/16 05:39 [place] % (Auto) 8.0 % (0.0-7.3) H 12/09/16 05:39 Eos % (Auto) 6.6 % (0.0-4.3) H 12/09/16 05:39 Baso % (Auto) 0.5 % (0.0-1.8) 12/09/16 05:39 Lymph # 0.6 K/mm3 (1.2-5.4) L 12/09/16 05:39 [place] # 0.5 K/mm3 (0.0-0.8) 12/09/16 05:39 Eos # 0.4 K/mm3 (0.0-0.4) 12/09/16 05:39 Baso # 0.0 K/mm3 (0.0-0.1) 12/09/16 05:39 Seg Neutrophils % 76.4 % (40.0-70.0) H 12/09/16 05:39 Seg Neutrophils # 5.1 K/mm3 (1.8-7.7) 12/09/16 05:39 Sodium 136 mmol/L (137-145) L 12/08/16 03:17 Potassium 4.9 mmol/L (3.6-5.0) 12/08/16 03:17 Chloride 94.8 mmol/L (98-107) L 12/08/16 03:17 Carbon Dioxide 23 mmol/L (22-30) 12/08/16 03:17 Anion Gap 23 mmol/L 12/08/16 03:17 BUN 47 mg/dL (9-20) H 12/08/16 03:17 Creatinine 6.6 mg/dL (0.8-1.5) H 12/08/16 03:17 Estimated GFR 11 ml/min 12/08/16 03:17 BUN/Creatinine Ratio 7.12 % 12/08/16 03:17 Glucose 139 mg/dL (75-100) H 12/08/16 03:17 POC Glucose 58 (70-105) L 12/09/16 11:41 Calcium 7.8 mg/dL (8.4-10.2) L 12/08/16 03:17 Phosphorus 3.20 mg/dL (2.5-4.5) D 12/08/16 11:52 Troponin T 2.290 ng/mL (0.00-0.029) H* 12/08/16 16:18 Triglycerides 77 mg/dL (2-149) 12/07/16 15:00 Cholesterol 96 mg/dL (50-199) 12/07/16 15:00 LDL Cholesterol Direct 45 mg/dL (50-130) L 12/07/16 15:00 HDL Cholesterol 36 mg/dL (40-59) L 12/07/16 15:00 Cholesterol/HDL Ratio 2.66 % 12/07/16 15:00 PTH Intact 585.0 pg/mL (15-65) H 12/08/16 11:52
[2016-12-09 20:16] LABS: BUN/Creatinine Ratio 6.25; Chloride 90.8 mmol/L (98-107)
[2016-12-09 20:24] LABS: Potassium 6.8 mmol/L (3.6-5.0)
[2016-12-09] MEDS: LEVEMIR SUB-Q SCH (21:21)
[2016-12-09] MEDS ORDERED: NACL 0.9% 100 ML IV PRN (23:08)
[2016-12-09] MEDS ORDERED: CALCIUM CHLORIDE IVP ONE (23:10)
[2016-12-09] MEDS ORDERED: D50W (25GM) IV ONE (23:11)
[2016-12-09] MEDS ORDERED: CALCIUM CHLORIDE 1,000 MG in NACL 0.9% 100 ML IV ONE (23:15)
--- NOTE | 2016-12-09 23:18 | Event Note ---
Called the floor potassium was not called to me , though critical According to the nurse she tried to call Dr Adam who did not return the call, also she did not call melter supervisor [employer] I did advise the nurse to call dialysis nurse for stat dialysis Also explained the nurse to give calcium chloride 1 amp IV stat over 10 minute 1 amp D 50 and 5 unit of regular insulin while waiting Will also give 10 mg albuterol STAT
[2016-12-09] MEDS ORDERED: KIONEX PO ONE (23:19)
--- NOTE | 2016-12-09 23:30 | Event Note ---
Discussed with Danette dialysis nurse who called to do stat dialysis
[2016-12-10] MEDS: APRESOLINE PO SCH ×3 (03:23→22:18)
[2016-12-10] MEDS ORDERED: D50W (25GM) IV PRN ×2 (06:47→06:51)
[2016-12-10] MEDS: NOVOLOG SUB-Q SCH ×7 (08:11→23:00)
--- NOTE | 2016-12-10 08:21 | Vascular Lab Report ---
LOWER EXTREMITY VENOUS DUPLEX: REASON FOR EXAM: Swelling of the lower extremities. COMMENTS ON THE RIGHT: All veins visualized are freely compressible without evidence of internal echogenicity. Flow is spontaneous and phasic throughout. COMMENTS ON THE LEFT: All veins visualized are freely compressible without evidence of internal echogenicity. Flow is spontaneous and phasic throughout. IMPRESSION: No evidence of acute or chronic deep venous thrombosis in either lower extremity.
[2016-12-10 08:48] LABS: Hemoglobin 8.4 gm/dl (11.8-15.2); Mean Corpuscular HGB Conc 32 % (32-34); Mean Corpuscular Hemoglobin 27 pg (28-32); Mean Corpuscular Volume 84 fl (84-94); Platelet Count 250 K/mm3 (140-440); Red Cell Distribution Width 19.2 % (13.2-15.2); White Blood Count 6.4 K/mm3 (4.5-11.0)
[2016-12-10 08:55] LABS: BUN/Creatinine Ratio 5.26; Calcium 8.1 mg/dL (8.4-10.2); Chloride 93.9 mmol/L (98-107); Potassium 4.1 mmol/L (3.6-5.0)
[2016-12-10 09:56] LABS: INR 1.24 (0.87-1.13)
--- NOTE | 2016-12-10 10:17 | Progress Note ---
Subjective Interval history: Seen today for follow-up no acute distress Patient had to be dialyzed yesterday due to moderately severe hyperkalemia Discontinued JAYANT inhibitors due to severe hyperkalemia No compressive any chest pain pressure or shortness of breath physical examination General: No acute distress Vitals: Reviewed HEENT: No uremic order mild pallor Neck: Supple no JVD Chest: Few bilateral basilar crackles Heart: Regular rate and rhythm S1-S2 heard Abdomen: Soft nontender Extremity: Has functioning fistula 1+ edema improving Neurological: Alert awake oriented Assessment and plan End-stage renal disease patient will be dialyzed 3 times a week at least for 4 hours each Hyperkalemia taken off JAYANT inhibitors monitor follow low potassium diet, can be considered in the lower dose if needed cardiomyopathy ejection fraction has been reported to be little prior cardiac catheterization was in 2015 Accelerated hypertension requires volume control blood pressure control and follow-up Elevated troponin currently being followed by cardiology Poorly compliant patient counseling education has been done Continue to monitor dialysis related labs Patient has adequate education about renal related issues Objective - Vital Signs Vital signs: Vital Signs - 12hr 12/09/16 12/10/16 12/10/16 23:00 00:39 01:30 Temperature 98.4 F Pulse Rate 67 Pulse Rate [ 68 68 Right From Monitor] Respiratory 18 Rate Blood Pressure 153/83 Blood Pressure 151/76 [Right Arm] O2 Sat by Pulse 100 Oximetry 12/10/16 12/10/16 12/10/16 01:40 01:45 02:00 Temperature 98.4 F Pulse Rate 67 90 70 Pulse Rate [ Right From Monitor] Respiratory 20 Rate Blood Pressure 153/83 153/89 164/85 Blood Pressure [Right Arm] O2 Sat by Pulse Oximetry 12/10/16 12/10/16 12/10/16 02:15 02:30 02:45 Temperature Pulse Rate 85 84 92 H Pulse Rate [ Right From Monitor] Respiratory Rate Blood Pressure 157/83 155/87 157/81 Blood Pressure [Right Arm] O2 Sat by Pulse Oximetry 12/10/16 12/10/16 12/10/16 03:00 03:15 03:23 Temperature Pulse Rate 93 H 93 H 60 Pulse Rate [ Right From Monitor] Respiratory Rate Blood Pressure 151/93 150/84 127/74 Blood Pressure [Right Arm] O2 Sat by Pulse Oximetry 12/10/16 12/10/16 12/10/16 03:30 03:45 04:00 Temperature 98 F Pulse Rate 93 H 93 H 93 H Pulse Rate [ 71 Right From Monitor] Respiratory 16 Rate Blood Pressure 142/84 144/84 159/86 Blood Pressure 139/82 [Right Arm] O2 Sat by Pulse Oximetry 12/10/16 12/10/16 12/10/16 04:17 04:30 07:30 Temperature 98.0 F 98.1 F Pulse Rate 91 H 91 H Pulse Rate [ 83 Right From Monitor] Respiratory 20 18 Rate Blood Pressure 160/95 139/82 Blood Pressure 172/88 [Right Arm] O2 Sat by Pulse 98 Oximetry 12/10/16 07:50 Temperature Pulse Rate Pulse Rate [ 68 Right From Monitor] Respiratory Rate Blood Pressure Blood Pressure [Right Arm] O2 Sat by Pulse Oximetry - General Appearance General appearance: appears stated age EENT: mucous membranes moist Neck: no JVD Respiratory: Present: Rales (few bilateral crackles) Cardiology: regular (S1-S2 normal) Gastrointestinal: other (soft nontender abdomen) Neurologic: other (alert awake follows commands) - Lab 12/10/16 08:39 12/11/16 15:42 Most recent lab results Calcium 8.1 mg/dL (8.4-10.2) L 12/10/16 08:13 Phosphorus 3.20 mg/dL (2.5-4.5) D 12/08/16 11:52
[2016-12-10] MEDS: COREG PO SCH ×2 (10:48→22:17)
[2016-12-10] MEDS: HALFPRIN EC PO SCH (10:48)
--- NOTE | 2016-12-10 11:21 | Progress Note ---
Assessment and Plan Assessment: Elevated troponin level - flat; chonically elevated on prior hospitalizations; ECG with NAF; currently nonspecific in setting of ESRD. Chest pain, atypical - recurrent; currently resolved. ESRD on HD Acute on chronic respiratory failure secondary to volume overload - pt missed several days of HD [employer]ED[employer]ER. Nonobstructive CAD - [facility] 04/2015 @ [place] - mild CAD, 30-45% OM1, mild LI in RCA , EF 70%. Pt follows Dr. Car Arechiga at [place]. DM 2 Hypertension Hyperkalemia H/o prostate CA Noncompliance Plan: Echo reviewed - EF 45-50%, LA mildly dilated, large pleural effusion, mild LVH. Will post-pone LHC for today in setting of recent hyperkalemia. Continue to monitor serum K+ and if K+ is <5.0 in AM will plan to proceed with LHC in AM. NPO after MN. Optimize anti-hypertensive regimen - increase hydralazine to 100mg BID. Assessment and plan reviewed with pt at bedside. The patient has been seen in conjunction with Dr. Canales who agrees with the assessment and plan of care. Subjective Date of service: 12/10/16 Principal diagnosis: elevated troponin Interval history: Pt resting comfortably in bed, denies any complaints. Underwent emergent HD yesterday evening for elevated serum K+. Has been NPO since MN for possible LHC today. VSS. Objective Last Vital Signs Temp 98.1 F 12/10/16 07:30 Pulse 83 12/10/16 10:48 Resp 18 12/10/16 07:30 BP 172/88 12/10/16 10:48 Pulse Ox 98 12/10/16 07:30 - Physical Examination General: No Apparent Distress HEENT: Positive: Normocephaly, Mucus Membranes Moist Neck: Positive: neck supple. Negative: JVD/HJR Cardiac: Positive: Reg Rate and Rhythm, S1/S2 Lungs: Positive: clear to auscultation Neuro: Positive: Grossly Intact Abdomen: Positive: Soft, Active Bowel Sounds. Negative: Organomegaly, Tender Skin: Positive: Clear. Negative: Rash, Wound Musculoskeletal: No Fluid Collection, No Pain, Normal Range of Motion Extremities: Present: normal. Absent: edema - Labs and Meds Coagulation 12/10/16 Range/Units 09:21 PT 16.3 H (12.2-14.9) Sec. INR 1.24 H (0.87-1.13) CBC 12/10/16 Range/Units 08:39 WBC 6.4 (4.5-11.0) K/mm3 RBC 3.10 L (3.65-5.03) M/mm3 Hgb 8.4 L (11.8-15.2) gm/dl Hct 26.0 L (35.5-45.6) % Plt Count 250 (140-440) K/mm3 Comprehensive Metabolic Panel 12/09/16 12/10/16 Range/Units 19:43 08:13 Sodium 132 L 135 L (137-145) mmol/L Potassium 6.8 H* D 4.1 D (3.6-5.0) mmol/L Chloride 90.8 L 93.9 L (98-107) mmol/L Carbon Dioxide 24 29 (22-30) mmol/L BUN 55 H 30 H (9-20) mg/dL Creatinine 8.8 H 5.7 H (0.8-1.5) mg/dL Glucose 149 H 107 H (75-100) mg/dL Calcium 8.0 L 8.1 L (8.4-10.2) mg/dL - Telemetry EKG Rhythm: Sinus Rhythm - EKG Sinus rhythms and dysrhythmias: sinus rhythm (Non specific ST-T changes.)
--- NOTE | 2016-12-10 19:15 | Progress Note ---
Assessment and Plan Assessment and plan: --Chest pain/elevated cardiac enzymes Continue current cardiac medications, heart Catheterization re- scheduled for tomorrow discussed with cardiology, --Hypoglycemic episodes; due to poor oral intake Adjust insulin dose, encourage the patient to eat regular meals D 50 as needed, monitor blood sugars --2 diabetes mellitus; Accu-Chek sliding scale coverage, ADA diet and insulin as needed --Acute on chronic respiratory failure secondary to fluid overload Supportive care, hemodialysis per schedule, oxygen titrated to O2 sats more than 90% --End-stage renal disease on hemodialysis Nephrology following dialysis per schedule, counseling done patient strongly advised to adhere to hemodialysis medications and diet plan --Hypertension moderate control Continue Antihypertensives and when necessary medications --Dyslipidemia; continue lipid-lowering medications DVT prophylaxis with heparin Closely monitor the patient on just the management as needed History Interval history: Sincerely and evaluated medical records reviewed Heart catheterization Canceled secondary to hyperkalemia Patient feels better no new complaints Hospitalist Physical - Constitutional Vitals: Temp Pulse Resp BP Pulse Ox 98.1 F 83 18 172/88 98 12/10/16 07:30 12/10/16 10:48 12/10/16 07:30 12/10/16 10:48 12/10/16 07:30 General appearance: Present: no acute distress, cachectic, disheveled - EENT Eyes: Present: PERRL, EOM intact - Neck Neck: Present: supple, normal ROM - Respiratory Respiratory effort: normal Respiratory: bilateral: diminished, negative: rales, rhonchi, wheezing - Cardiovascular Rhythm: regular Heart Sounds: Present: S1 & S2 - Extremities Extremities: no ischemia, No edema - Abdominal General gastrointestinal: soft, non-tender, non-distended - Integumentary Integumentary: Present: clear, warm - Psychiatric Psychiatric: appropriate mood/affect, cooperative - Neurologic Neurologic: CNII-XII intact, moves all extremities Results - Labs CBC & Chem 7: 12/10/16 08:39 12/10/16 08:13 Labs: Laboratory Last Values WBC 6.4 K/mm3 (4.5-11.0) 12/10/16 08:39 RBC 3.10 M/mm3 (3.65-5.03) L 12/10/16 08:39 Hgb 8.4 gm/dl (11.8-15.2) L 12/10/16 08:39 Hct 26.0 % (35.5-45.6) L 12/10/16 08:39 MCV 84 fl (84-94) 12/10/16 08:39 MCH 27 pg (28-32) L 12/10/16 08:39 MCHC 32 % (32-34) 12/10/16 08:39 RDW 19.2 % (13.2-15.2) H 12/10/16 08:39 Plt Count 250 K/mm3 (140-440) 12/10/16 08:39 Lymph % (Auto) 8.5 % (13.4-35.0) L 12/09/16 05:39 [place] % (Auto) 8.0 % (0.0-7.3) H 12/09/16 05:39 Eos % (Auto) 6.6 % (0.0-4.3) H 12/09/16 05:39 Baso % (Auto) 0.5 % (0.0-1.8) 12/09/16 05:39 Lymph # 0.6 K/mm3 (1.2-5.4) L 12/09/16 05:39 [place] # 0.5 K/mm3 (0.0-0.8) 12/09/16 05:39 Eos # 0.4 K/mm3 (0.0-0.4) 12/09/16 05:39 Baso # 0.0 K/mm3 (0.0-0.1) 12/09/16 05:39 Seg Neutrophils % 76.4 % (40.0-70.0) H 12/09/16 05:39 Seg Neutrophils # 5.1 K/mm3 (1.8-7.7) 12/09/16 05:39 PT 16.3 Sec. (12.2-14.9) H 12/10/16 09:21 INR 1.24 (0.87-1.13) H 12/10/16 09:21 Sodium 135 mmol/L (137-145) L 12/10/16 08:13 Potassium 4.1 mmol/L (3.6-5.0) D 12/10/16 08:13 Chloride 93.9 mmol/L (98-107) L 12/10/16 08:13 Carbon Dioxide 29 mmol/L (22-30) 12/10/16 08:13 Anion Gap 16 mmol/L 12/10/16 08:13 BUN 30 mg/dL (9-20) H 12/10/16 08:13 Creatinine 5.7 mg/dL (0.8-1.5) H 12/10/16 08:13 Estimated GFR 12 ml/min 12/10/16 08:13 BUN/Creatinine Ratio 5.26 % 12/10/16 08:13 Glucose 107 mg/dL (75-100) H 12/10/16 08:13 POC Glucose 137 (70-105) H 12/10/16 11:27 Calcium 8.1 mg/dL (8.4-10.2) L 12/10/16 08:13 Phosphorus 3.20 mg/dL (2.5-4.5) D 12/08/16 11:52 Troponin T 2.290 ng/mL (0.00-0.029) H* 12/08/16 16:18 Triglycerides 77 mg/dL (2-149) 12/07/16 15:00 Cholesterol 96 mg/dL (50-199) 12/07/16 15:00 LDL Cholesterol Direct 45 mg/dL (50-130) L 12/07/16 15:00 HDL Cholesterol 36 mg/dL (40-59) L 12/07/16 15:00 Cholesterol/HDL Ratio 2.66 % 12/07/16 15:00 PTH Intact 585.0 pg/mL (15-65) H 12/08/16 11:52
[2016-12-10] MEDS ORDERED: NACL 0.9% 500 ML 500 ML ONE (20:24)
[2016-12-10] MEDS ORDERED: APRESOLINE PO SCH (22:00)
[2016-12-10] MEDS: LEVEMIR SUB-Q SCH (23:00)
[2016-12-10] MEDS ORDERED: NACL 0.9% 100 ML IV PRN (23:30)
[2016-12-11] MEDS ORDERED: BENADRYL ONE (07:34)
[2016-12-11] MEDS ORDERED: XYLOCAINE 1% 20 mL ONE (07:34)
[2016-12-11] MEDS ORDERED: HEPARIN/NS 5000 UNIT/500ML(CATH LAB) 1,000 ML IR ONE (07:34)
[2016-12-11] MEDS ORDERED: NACL 0.9% 500 ML 500 ML ONE (07:34)
[2016-12-11] MEDS ORDERED: SUBLIMAZE ONE (07:35)
[2016-12-11] MEDS ORDERED: VERSED ONE (07:35)
--- NOTE | 2016-12-11 09:50 | Cardiac Catherization Report ---
The patient is a 56-year-old -[place] gentleman with history of atypical chest pains, negative stress thallium few months ago, has underlying LV dysfunction on the echocardiogram. The patient is hypertensive on hemodialysis. Because of atypical chest pains and LV dysfunction, cardiac catheterization being performed for diagnostic and prognostic purposes. The patient is aware of the procedure, potential complications and the alternatives of therapy available. The patient was brought to the catheterization laboratory in fasting condition. Right groin area was thoroughly cleansed with chlorhexidine solution. Sterile drapes were applied. Local anesthesia was achieved using 2% Xylocaine. Right femoral artery puncture was made using 5-Macedonian micropuncture needle. Subsequently, a 5-Macedonian sheath was introduced. A 5-Macedonian multipurpose catheter was used to obtain the angiograms of the left ventricle done in ISAACS projection using hand injection followed by angiograms of the right coronary artery in ISAACS and [place] projections. Subsequently, JL 3.5 catheter was used to obtain the angiograms of the left coronary artery in multiple views. At the end of the procedure, catheter and sheath were removed. Good hemostasis was achieved with above. Angiogram of the right femoral artery was obtained. When it was felt appropriate, 6-Macedonian Angio-Seal was applied with good hemostasis. No untoward complications were noted. There is a question of allergic to shellfish. The patient received Solu-Medrol. No untoward complications were noted. FINAL IMPRESSION: 1. Left ventriculogram done in ISAACS projection showed mildly dilated left ventricle with moderate diffuse hypokinesis, ejection fraction 30-35%. 2. Nondominant RCA is angiographically smooth and normal. 3. Left coronary artery, left main is smooth and normal. LAD curves around the apex supplying the distal third of the inferior septum. LAD and its branches, circumflex artery and its branches are angiographically smooth and normal. HEMODYNAMICS: Opening aortic pressure 182/84, left ventricular pressure 173/28. FINAL IMPRESSION: 1. Moderate LV dysfunction, ejection fraction 30-35%. Diffuse hypokinesis. Only limited amount of dye was injected. Mitral regurgitation could not be evaluated. 2. Normal coronary anatomy with RCA being small, nondominant. 3. The patient at this time has dilated cardiomyopathy with no significant coronary disease. Markedly elevated end diastolic pressure noted. The patient has underlying end-stage renal disease, on hemodialysis. We will continue medical therapy. No untoward complications were noted. Hemostasis was achieved with Angio-Seal closure device. Findings were explained to the patient. JOB# [id number] TENA/PAUL
--- NOTE | 2016-12-11 10:06 | Progress Note ---
Assessment and Plan Assessment: Elevated troponin level - flat; chonically elevated on prior hospitalizations; ECG with NAF; currently nonspecific in setting of ESRD. Chest pain, atypical - recurrent; currently resolved. 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 Nonobstructive CAD - [facility] 04/2015 @ [place] - mild CAD, 30-45% OM1, mild LI in RCA , EF 70%. Pt follows Dr. Car Arechiga at [place]. NICMP - EF 45-50% DM 2 Hypertension Hyperkalemia H/o prostate CA Noncompliance Plan: s/p [facility] this AM which showed no significant coronary disease, EF 30 - 35%. Currently stable cardiac status. Pt may discharge home from cardiology standpoint. Consider addition of ACEI/ARB for CMP if okay per nephrology in setting of ESRD and recent hyperkalemia. Recommend pt to follow up with primary screw machine tender, Dr. Car Arechiga, within 2 weeks of hospital discharge. The patient has been seen in conjunction with Dr. Canales who agrees with the assessment and plan of care. Subjective Date of service: 12/11/16 Principal diagnosis: elevated troponin Interval history: Pt resting comfortably in bed, denies any complaints. s/p C this AM. Right femoral [facility] site c/d/i with no evidence of bleeding or hematoma. VSS. Objective Last Vital Signs Temp 98.5 F 12/11/16 04:00 Pulse 91 H 12/11/16 04:00 Resp 18 12/11/16 04:00 BP 174/94 12/11/16 04:00 Pulse Ox 98 12/11/16 04:00 - Physical Examination General: No Apparent Distress HEENT: Positive: Normocephaly, Mucus Membranes Moist Neck: Positive: neck supple. Negative: JVD/HJR Cardiac: Positive: Reg Rate and Rhythm, S1/S2 Lungs: Positive: clear to auscultation Neuro: Positive: Grossly Intact Abdomen: Positive: Soft, Active Bowel Sounds. Negative: Organomegaly, Tender Skin: Positive: Clear. Negative: Rash, Wound Incision: Cardiac Cath Site Musculoskeletal: No Fluid Collection, No Pain, Normal Range of Motion Extremities: Present: normal. Absent: edema - Telemetry EKG Rhythm: Sinus Rhythm - EKG Sinus rhythms and dysrhythmias: sinus rhythm (Non specific ST-T changes.)
[2016-12-11] MEDS: NOVOLOG SUB-Q SCH ×7 (11:18→22:27)
[2016-12-11] MEDS: COREG PO SCH ×2 (11:31→22:15)
[2016-12-11] MEDS: APRESOLINE PO SCH ×2 (11:31→22:15)
[2016-12-11] MEDS: HALFPRIN EC PO SCH (11:31)
[2016-12-11] MEDS ORDERED: NACL 0.9 (PRIMING MACHINE ONLY DIALYSIS) MC ONE (12:39)
--- NOTE | 2016-12-11 14:33 | Progress Note ---
Subjective Principal diagnosis: elevated troponin Interval history: Seen today for follow-up no acute distress, pending dialysis today around 9:30 in the morning currently off jayant inhibitors due to moderately severe hyperkalemia No compressive any chest pain pressure or shortness of breath vitals labs. Intake and output. Medications were reviewed HEENT: Oral mucosa moist, currently on oxygen Neck: Supple, no JVD Chest: Bilateral basilar crackles posteriorly Heart: Regular rate and rhythm, S1, S2 heard Abdomen: Soft, nontender. No dullness in the flanks Extremities: 1+ edema bilaterally functioning fistula Neurological: Alert, awake, oriented 4 Assessment and plan End-stage renal disease patient will be dialyzed 3 times a week at least for 4 hours each, awaiting dialysis today Hyperkalemia taken off JAYANT inhibitors monitor follow low potassium diet, can be considered in the lower dose if needed anemia and end-stage renal disease. Current hemoglobin 8.4. To follow Accelerated hypertension requires volume control blood pressure control and follow-up Elevated troponin currently being followed by cardiology Poorly compliant patient counseling education has been done Continue to monitor dialysis related labs Patient has adequate education about renal related issues Objective - Vital Signs Vital signs: Vital Signs - 12hr 12/11/16 12/11/16 12/11/16 04:00 10:00 11:00 Temperature 98.5 F 97.8 F Pulse Rate 75 74 Pulse Rate [ 91 H 74 Right From Monitor] Respiratory 18 20 Rate Blood Pressure 186/102 171/78 Blood Pressure 174/94 [Right Arm] O2 Sat by Pulse 98 Oximetry 12/11/16 12/11/16 12/11/16 11:15 11:30 11:45 Temperature Pulse Rate 89 81 93 H Pulse Rate [ Right From Monitor] Respiratory Rate Blood Pressure 170/102 180/102 156/94 Blood Pressure [Right Arm] O2 Sat by Pulse Oximetry 12/11/16 12/11/16 12/11/16 12:00 12:15 12:30 Temperature Pulse Rate 90 93 H 94 H Pulse Rate [ Right From Monitor] Respiratory Rate Blood Pressure 158/90 158/99 166/94 Blood Pressure [Right Arm] O2 Sat by Pulse Oximetry 12/11/16 12/11/16 12/11/16 12:45 13:00 13:15 Temperature Pulse Rate 92 H 92 H 92 H Pulse Rate [ Right From Monitor] Respiratory Rate Blood Pressure 170/96 157/89 162/96 Blood Pressure [Right Arm] O2 Sat by Pulse Oximetry 12/11/16 13:30 Temperature Pulse Rate 93 H Pulse Rate [ Right From Monitor] Respiratory Rate Blood Pressure 171/98 Blood Pressure [Right Arm] O2 Sat by Pulse Oximetry - Lab 12/10/16 08:39 12/10/16 08:13 Most recent lab results Calcium 8.1 mg/dL (8.4-10.2) L 12/10/16 08:13 Phosphorus 3.20 mg/dL (2.5-4.5) D 12/08/16 11:52
--- NOTE | 2016-12-11 15:24 | Progress Note ---
Assessment and Plan Assessment and plan: --Malignant hypertension; Continue current antihypertensives, adjust the dosages, when necessary hydralazine Closely monitor --Chest pain/elevated cardiac enzymes s/p Catheterization re- scheduled for tomorrow discussed with cardiology, --Hypoglycemic episodes; due to poor oral intake Adjust insulin dose, encourage the patient to eat regular meals D 50 as needed, monitor blood sugars --2 diabetes mellitus; Accu-Chek sliding scale coverage, ADA diet and insulin as needed --Acute on chronic respiratory failure secondary to fluid overload Supportive care, hemodialysis per schedule, oxygen titrated to O2 sats more than 90% --End-stage renal disease on hemodialysis Nephrology following dialysis per schedule, counseling done patient strongly advised to adhere to hemodialysis medications and diet plan --Hypertension moderate control Continue Antihypertensives and when necessary medications --Dyslipidemia; continue lipid-lowering medications DVT prophylaxis with heparin Closely monitor the patient and adjust the management as needed History Interval history: Patient seen and evaluated in hemodialysis unit, medical records reviewed Patient had a heart cath today, normal coronaries, medical management Blood pressures are uncontrolled, patient has no chest pain or shortness of breath Alert awake oriented 3 not in acute distress Hospitalist Physical - Constitutional Vitals: Temp Pulse Resp BP Pulse Ox 97.8 F 96 H 20 166/106 98 12/11/16 10:00 12/11/16 14:30 12/11/16 10:00 12/11/16 14:30 12/11/16 04:00 General appearance: Present: no acute distress, well-nourished - EENT Eyes: Present: PERRL, EOM intact - Neck Neck: Present: supple, normal ROM - Respiratory Respiratory effort: normal Respiratory: bilateral: diminished, negative: rales, rhonchi, wheezing - Cardiovascular Rhythm: regular Heart Sounds: Present: S1 & S2 - Extremities Extremities: no ischemia, normal temperature Extremity abnormal: edema - Abdominal General gastrointestinal: soft, non-tender, non-distended, normal bowel sounds - Integumentary Integumentary: Present: clear, warm - Psychiatric Psychiatric: appropriate mood/affect, cooperative - Neurologic Neurologic: CNII-XII intact, moves all extremities Results - Labs CBC & Chem 7: 12/10/16 08:39 12/11/16 15:42 Labs: Laboratory Last Values WBC 6.4 K/mm3 (4.5-11.0) 12/10/16 08:39 RBC 3.10 M/mm3 (3.65-5.03) L 12/10/16 08:39 Hgb 8.4 gm/dl (11.8-15.2) L 12/10/16 08:39 Hct 26.0 % (35.5-45.6) L 12/10/16 08:39 MCV 84 fl (84-94) 12/10/16 08:39 MCH 27 pg (28-32) L 12/10/16 08:39 MCHC 32 % (32-34) 12/10/16 08:39 RDW 19.2 % (13.2-15.2) H 12/10/16 08:39 Plt Count 250 K/mm3 (140-440) 12/10/16 08:39 Lymph % (Auto) 8.5 % (13.4-35.0) L 12/09/16 05:39 [place] % (Auto) 8.0 % (0.0-7.3) H 12/09/16 05:39 Eos % (Auto) 6.6 % (0.0-4.3) H 12/09/16 05:39 Baso % (Auto) 0.5 % (0.0-1.8) 12/09/16 05:39 Lymph # 0.6 K/mm3 (1.2-5.4) L 12/09/16 05:39 [place] # 0.5 K/mm3 (0.0-0.8) 12/09/16 05:39 Eos # 0.4 K/mm3 (0.0-0.4) 12/09/16 05:39 Baso # 0.0 K/mm3 (0.0-0.1) 12/09/16 05:39 Seg Neutrophils % 76.4 % (40.0-70.0) H 12/09/16 05:39 Seg Neutrophils # 5.1 K/mm3 (1.8-7.7) 12/09/16 05:39 PT 16.3 Sec. (12.2-14.9) H 12/10/16 09:21 INR 1.24 (0.87-1.13) H 12/10/16 09:21 Sodium 135 mmol/L (137-145) L 12/10/16 08:13 Potassium 4.1 mmol/L (3.6-5.0) D 12/10/16 08:13 Chloride 93.9 mmol/L (98-107) L 12/10/16 08:13 Carbon Dioxide 29 mmol/L (22-30) 12/10/16 08:13 Anion Gap 16 mmol/L 12/10/16 08:13 BUN 30 mg/dL (9-20) H 12/10/16 08:13 Creatinine 5.7 mg/dL (0.8-1.5) H 12/10/16 08:13 Estimated GFR 12 ml/min 12/10/16 08:13 BUN/Creatinine Ratio 5.26 % 12/10/16 08:13 Glucose 107 mg/dL (75-100) H 12/10/16 08:13 POC Glucose 130 (70-105) H 12/11/16 05:00 Calcium 8.1 mg/dL (8.4-10.2) L 12/10/16 08:13 Phosphorus 3.20 mg/dL (2.5-4.5) D 12/08/16 11:52 Troponin T 2.290 ng/mL (0.00-0.029) H* 12/08/16 16:18 Triglycerides 77 mg/dL (2-149) 12/07/16 15:00 Cholesterol 96 mg/dL (50-199) 12/07/16 15:00 LDL Cholesterol Direct 45 mg/dL (50-130) L 12/07/16 15:00 HDL Cholesterol 36 mg/dL (40-59) L 12/07/16 15:00 Cholesterol/HDL Ratio 2.66 % 12/07/16 15:00 PTH Intact 585.0 pg/mL (15-65) H 12/08/16 11:52
[2016-12-11 16:29] LABS: BUN/Creatinine Ratio 4.44; Calcium 8.2 mg/dL (8.4-10.2); Chloride 93.6 mmol/L (98-107)
[2016-12-11 16:30] LABS: INR 1.24 (0.87-1.13)
[2016-12-11 16:31] LABS: Partial Thromboplastin Time 46.2 Sec. (24.2-36.6)
[2016-12-11] MEDS: LEVEMIR SUB-Q SCH (22:27)
[2016-12-12] MEDS: ALUM-MAG HYDROX-SIMETH 200-200-20MG/5ML PO PRN (00:29)
[2016-12-12] MEDS ORDERED: NOVOLOG SUB-Q SCH (07:57)
--- NOTE | 2016-12-12 07:58 | Discharge Summary ---
Providers - Providers Date of Admission: 12/07/16 19:16 Date of discharge: 12/12/16 Attending physician: ALPHONSE SINGER Primary care physician: LI[employer]OR STORE MANAGER Hospitalization Reason for admission: worsening shortness of breath/worsening leg edema/fluid overload Condition: Stable Pertinent studies: Chest x-ray Lower extremity venous Doppler Echocardiogram Cardiac catheterization; normal coronaries, LV ejection fraction 30-35% Procedures: Hemodialysis per schedule Hospital course: 56-year-old male patient with multiple medical problems was admitted with worsening swelling of the body and worsening shortness of breath and fluid overload Patient missed hemodialysis for 1 week Evaluated noted to be in acute respiratory failure and fluid overload, admitted symptomatically managed Seen by nephrology and underwent hemodialysis per schedule Blood pressures closely monitored and medications were optimized Patient also had atypical chest pain evaluated by cardiology and underwent heart cath which did not show any coronary artery disease Advised medical management Smoking cessation counseling done strongly advised to quit tobacco use patient verbalized understanding Today he is comfortable in no new complaints vital signs are stable physical examination is unremarkable Patient is hemodynamically and clinically stable for discharge today Discharge diagnosis; Acute on chronic respiratory failure due to fluid overload Missed hemodialysis/noncompliance Hypoglycemia secondary to poor oral intake resolved Malignant hypertension Type 2 diabetes mellitus End-stage renal disease on hemodialysis Dyslipidemia On Going tobacco use Disposition: DC/TX-06 HOME UNDER HOME [facility] Time spent for discharge: 32 min Core Measure Documentation - Palliative Care Palliative Care/ Comfort Measures: Not Applicable - Core Measures Any of the following diagnoses?: none Exam - Constitutional Vitals: Temp Pulse Resp BP Pulse Ox 97.8 F 90 22 149/78 99 12/12/16 04:00 12/12/16 04:09 12/12/16 04:00 12/12/16 04:00 12/12/16 04:00 General appearance: Present: no acute distress, well-nourished - EENT Eyes: Present: PERRL, EOM intact - Neck Neck: Present: supple, normal ROM - Respiratory Respiratory effort: normal Respiratory: bilateral: diminished, negative: rales, rhonchi, wheezing - Cardiovascular Rhythm: regular Heart Sounds: Present: S1 & S2 - Extremities Extremities: no ischemia, No edema - Abdominal General gastrointestinal: Present: soft, non-tender, non-distended, normal bowel sounds - Integumentary Integumentary: Present: clear, warm - Musculoskeletal Musculoskeletal: strength equal bilaterally, generalized weakness - Psychiatric Psychiatric: appropriate mood/affect, cooperative - Neurologic Neurologic: CNII-XII intact, moves all extremities Plan Activity: advance as tolerated Diet: diabetic, renal Special Instructions: physical therapy Additional Instructions: Renal/ hemodialysis per schedule/ Follow up with: PRIMARY CAREMD [Primary Care Provider] - 3-5 Days JAJA WOODARD MD [Staff Physician] - 7 Days LUIZ MCLEAN MD [Staff Physician] - 7 Days Prescriptions: RX: hydrALAZINE [Apresoline TAB] 100 mg PO BID #60 tab RX: Insulin Detemir [Levemir] 8 units SUB-Q QHS 30 Days
[2016-12-12] MEDS: NOVOLOG SUB-Q SCH ×3 (08:31→12:47)
[2016-12-12] MEDS: COREG PO SCH (09:53)
[2016-12-12] MEDS: HALFPRIN EC PO SCH (09:53)
[2016-12-12] MEDS: APRESOLINE PO SCH (09:54)
--- NOTE | 2016-12-12 10:01 | Progress Note ---
Subjective Principal diagnosis: elevated troponin Interval history: He is feeling much better no complaints of any shortness of breath chest pain Leg swelling is currently resolved Patient wants to go home No compressive any chest pain pressure or shortness of breath vitals labs. Intake and output. Medications were reviewed HEENT: Oral mucosa moist, currently on oxygen Neck: Supple, no JVD Chest: Bilateral clear to auscultation Heart: Regular rate and rhythm, S1, S2 heard Abdomen: Soft, nontender. No dullness in the flanks Extremities: No edema now has functioning fistula Neurological: Alert, awake, oriented 4 Assessment and plan End-stage renal disease; patient did receive hemodialysis during this admission Volume overload: Due to noncompliance counseled and educated Hyperkalemia: Was on JAYANT inhibitors currently taken off can be started a lower dose if needed Patient advised to monitor potassium intake regular fluid low-sodium diet Accelerated hypertension currently much better controlled Elevated troponin chronic in nature followed by cardiology overall stable from renal standpoint Once discharge she will resume his dialysis at the clinic He was appropriately counseled and educated regarding all the hospital related comorbidities Needs to work on diet and lifestyle and compliance Patient has adequate education about renal related issues Objective - Vital Signs Vital signs: Vital Signs - 12hr 12/11/16 12/12/16 12/12/16 22:15 00:00 03:32 Temperature 97.0 F L Pulse Rate 88 Pulse Rate [ 97 H Right From Monitor] Respiratory 20 20 Rate Blood Pressure 172/81 Blood Pressure 174/72 [Right Arm] O2 Sat by Pulse 96 Oximetry 12/12/16 12/12/16 12/12/16 04:00 04:09 08:00 Temperature 97.8 F 99.2 F Pulse Rate 90 Pulse Rate [ 87 72 Right From Monitor] Respiratory 22 20 Rate Blood Pressure Blood Pressure 149/78 148/83 [Right Arm] O2 Sat by Pulse 99 97 Oximetry 12/12/16 09:53 Temperature Pulse Rate 88 Pulse Rate [ Right From Monitor] Respiratory Rate Blood Pressure 150/80 Blood Pressure [Right Arm] O2 Sat by Pulse Oximetry - Lab 12/10/16 08:39 12/11/16 15:42 Most recent lab results Calcium 8.2 mg/dL (8.4-10.2) L 12/11/16 15:42 Phosphorus 3.20 mg/dL (2.5-4.5) D 12/08/16 11:52
[2016-12-12 12:07] VITALS: BP 143/79
== END 2016-12-12 17:00 | disposition home or self-care (01) | DRG 286 ==
LOC: ED 14:40 → 3A 19:16
PROVIDERS: ADMIT Internal Medicine; ATTEND Internal Medicine
PROC: 5A1D60Z (ICD-10-PCS; 2016-12-07)
PROC: 3E0234Z Introduction of Serum, Toxoid and Vaccine into Muscle, Percutaneous Approach (ICD-10-PCS; 2016-12-08)
PROC: 4A023N7 Measurement of Cardiac Sampling and Pressure, Left Heart, Percutaneous Approach (ICD-10-PCS; principal; 2016-12-11)
PROC: B2111ZZ Fluoroscopy of Multiple Coronary Arteries using Low Osmolar Contrast (ICD-10-PCS; principal; 2016-12-11)
PROC: B2151ZZ Fluoroscopy of Left Heart using Low Osmolar Contrast (ICD-10-PCS; principal; 2016-12-11)
DX: R07.89 Other chest pain (principal); J96.20 Acute and chronic respiratory failure, unspecified whether with hypoxia or hypercapnia; N18.6 End stage renal disease; I13.2 Hypertensive heart and chronic kidney disease with heart failure and with stage 5 chronic kidney disease, or end stage renal disease; N25.81 Secondary hyperparathyroidism of renal origin; I42.9 Cardiomyopathy, unspecified; E87.70 Fluid overload, unspecified; E78.5 Hyperlipidemia, unspecified; E87.5 Hyperkalemia; I25.10 Atherosclerotic heart disease of native coronary artery without angina pectoris; F17.200 Nicotine dependence, unspecified, uncomplicated; E11.649 Type 2 diabetes mellitus with hypoglycemia without coma; E11.22 Type 2 diabetes mellitus with diabetic chronic kidney disease; J44.9 Chronic obstructive pulmonary disease, unspecified; I50.9 Heart failure, unspecified; K21.9 Gastro-esophageal reflux disease without esophagitis; M19.90 Unspecified osteoarthritis, unspecified site; F32.9 Major depressive disorder, single episode, unspecified; G40.909 Epilepsy, unspecified, not intractable, without status epilepticus; G47.33 Obstructive sleep apnea (adult) (pediatric); Z82.49 Family history of ischemic heart disease and other diseases of the circulatory system; Z71.6 Tobacco abuse counseling; Z91.19 Patient's noncompliance with other medical treatment and regimen; Z88.5 Allergy status to narcotic agent; Z91.013 Allergy to seafood; Z83.3 Family history of diabetes mellitus; Z71.89 Other specified counseling; Z23 Encounter for immunization
CPT/HCPCS: 36415; 71020; 80048; 80061; 82962; 83970; 84100; 84484; 85025; 85027; 85610; 85730; 90732; 93005; 93010; 93308; 93321; 93325; 93458; 93970; 96365; 96366; 96375; 99285; 99406; A9270-GY; C1760; J0610; J1200; J1644; J1815; J1818; J2250; J2405; J2930; J3010; J7030; J7040; Q9967

== ENCOUNTER 2017-01-07 20:38 | Emergency (ER) | payer MEDICARE ==
[2017-01-07 22:13] LABS: BUN/Creatinine Ratio 6.48; Calcium 7.3 mg/dL (8.4-10.2); Chloride 96.1 mmol/L (98-107); Potassium 3.7 mmol/L (3.6-5.0)
[2017-01-07 23:53] LABS: BUN/Creatinine Ratio 6.66; Calcium 7.4 mg/dL (8.4-10.2); Chloride 95.5 mmol/L (98-107); Potassium 3.6 mmol/L (3.6-5.0)
[2017-01-08 00:02] LABS: Basophils % (Auto) 0.6 % (0.0-1.8); Eosinophils % (Auto) 11.9 % (0.0-4.3); Hematocrit 29.9 % (35.5-45.6); Hemoglobin 9.5 gm/dl (11.8-15.2); Mean Corpuscular HGB Conc 32 % (32-34); Mean Corpuscular Hemoglobin 27 pg (28-32); Mean Corpuscular Volume 84 fl (84-94); Platelet Count 273 K/mm3 (140-440); Red Blood Count 3.58 M/mm3 (3.65-5.03); White Blood Count 6.5 K/mm3 (4.5-11.0)
[2017-01-08 00:06] LABS: Red Cell Distribution Width 20.3 % (13.2-15.2)
--- NOTE | 2017-01-08 03:36 | Emergency Department Report ---
ED Shortness of Breath HPI - General Chief Complaint: Dyspnea/Respdistress Stated Complaint: DIFFICULTY IN BREATHING Time Seen by Provider: 01/08/17 03:26 Source: patient, EMS Mode of arrival: Stretcher Limitations: Physical Limitation - History of Present Illness Initial Comments: Patient is a 56 years old gentleman history of COPD congestive heart failure end -stage renal disease on dialysis ,he did not missed his dialysis. Denied any fever but does have nausea and he vomited once yesterday, no chest pain. MD Complaint: shortness of breath, cough Pain Scale: 5 Improves With: bronchodilators Known History Of: COPD, congestive heart failure Associated Symptoms: denies other symptoms, cough, sputum production - Related Data Home Medications Medication Instructions Recorded Confirmed Last Taken Aspirin [Aspirin TAB] 81 mg PO QDAY 10/29/16 12/07/16 11/22/16 06:00 Previous Rx's Medication Instructions Recorded Last Taken Type AtorvaSTATin [Lipitor] 40 mg PO QHS #30 tablet 09/28/16 11/23/16 06:00 Rx Syring W-Ndl,Disp,Insul,0.3 ml 1 each [facility] #100 disp.syrin 09/28/16 11/08/16 Rx [Insulin Syringe/Needle 0.3 ML] Carvedilol [Coreg] 25 mg PO BID 60 Days 11/14/16 11/23/16 06:00 Rx Insulin Detemir [Levemir] 8 units SUB-Q QHS 30 Days 12/12/16 Unknown Rx hydrALAZINE [Apresoline TAB] 100 mg PO BID #60 tab 12/12/16 Unknown Rx Levofloxacin [Levaquin TAB] 500 mg PO QDAY #7 tablet 01/08/17 Unknown Rx Allergies Allergy/AdvReac Type Severity Reaction Status Date / Time acetaminophen [From Percocet] Allergy Unknown Verified 11/08/16 11:28 morphine Allergy Unknown Verified 11/08/16 11:28 oxycodone Allergy Unknown Verified 11/08/16 11:28 oxycodone HCl [From Percocet] Allergy Unknown Verified 11/08/16 11:28 oxycodone terephthalate Allergy Itching Verified 11/08/16 11:28 [From Percodan] shellfish derived Allergy Unknown Verified 11/08/16 11:28 ED Review of Systems ROS: Stated complaint: DIFFICULTY IN BREATHING Other details as noted in HPI Comment: All other systems reviewed and negative Constitutional: denies: chills, fever Respiratory: cough, shortness of breath, SOB with exertion. denies: orthopnea, SOB at rest Cardiovascular: dyspnea on exertion. denies: chest pain, syncope Gastrointestinal: nausea, vomiting. denies: abdominal pain Musculoskeletal: denies: back pain Neurological: denies: headache, weakness, numbness, paresthesias, confusion ED Past Medical Hx - Past Medical History Previous Medical History?: Yes Hx Hypertension: Yes Hx Congestive Heart Failure: Yes Hx Diabetes: Yes Hx GERD: Yes Hx Renal Disease: Yes (TUES / TH / SAT) Hx Arthritis: Yes Hx Seizures: Yes Hx Psychiatric Treatment: Yes (depression) Hx Asthma: No Hx COPD: No (denies) Additional medical history: sleep apnea, erectile dysfunction, dialysis, back pain, high cholesterol - Surgical History Past Surgical History?: Yes Additional Surgical History: biopsy on prostate, fistula left arm,. HERNIA REPAIR - Social History Smoking Status: Current Some Day Smoker - Medications Home Medications: Home Medications Medication Instructions Recorded Confirmed Last Taken Type AtorvaSTATin [Lipitor] 40 mg PO QHS #30 tablet 09/28/16 12/07/16 11/23/16 06:00 Rx Syring W-Ndl,Disp,Insul,0.[address] [facility] #100 disp.syrin 09/28/16 12/07/16 11/08/16 Rx [Insulin Syringe/Needle 0.3 ML] Aspirin [Aspirin TAB] 81 mg PO QDAY 10/29/16 12/07/16 11/22/16 06:00 History Carvedilol [Coreg] 25 mg PO BID 60 Days 11/14/16 12/07/16 11/23/16 06:00 Rx Insulin Detemir [Levemir] 8 units SUB-Q QHS 30 Days 12/12/16 Unknown Rx hydrALAZINE [Apresoline TAB] 100 mg PO BID #60 tab 12/12/16 Unknown Rx Levofloxacin [Levaquin TAB] 500 mg PO QDAY #7 tablet 01/08/17 Unknown Rx ED Physical Exam - General Limitations: Physical Limitation General appearance: alert, in no apparent distress, other (patient is sleeping comfortably when I walked into the exam easily arousable) - Head Head exam: Present: atraumatic - ENT ENT exam: Present: normal exam - Neck Neck exam: Present: normal inspection. Absent: tenderness, meningismus, full ROM - Respiratory Respiratory exam: Present: normal lung sounds bilaterally. Absent: respiratory distress, wheezes, rales, rhonchi, stridor, chest wall tenderness, accessory muscle use, decreased breath sounds - Cardiovascular Cardiovascular Exam: Present: regular rate, normal rhythm, normal heart sounds - GI/Abdominal GI/Abdominal exam: Present: soft. Absent: distended, tenderness, guarding, rebound, rigid, normal bowel sounds, mass, bruit, pulsatile mass, hernia - Extremities Exam Extremities exam: Present: normal inspection - Back Exam Back exam: Present: normal inspection. Absent: CVA tenderness (R), CVA tenderness (L) - Neurological Exam Neurological exam: Present: alert, oriented X3, CN II-XII intact - Skin Skin exam: Present: warm, intact, normal color ED Course Vital Signs 01/07/17 21:25 Temperature 98.3 F Pulse Rate 92 H Respiratory 18 Rate Blood Pressure 158/97 O2 Sat by Pulse 97 Oximetry - Reevaluation(s) Reevaluation #1: 01/08/17 03:41 Patient remained stable in the ER, when I walked in to examine him in no distress, no fever, no nausea,no vomiting. I believe this is acute bronchitis I will give him antibiotic and follow-up with his kidney doctor Dr. Vaughan today for his dialysis. ED Medical Decision Making - Lab Data Result diagrams: 01/07/17 23:08 01/07/17 23:08 Critical care attestation.: If time is entered above; I have spent that time in minutes in the direct care of this critically ill patient, excluding procedure time. ED Disposition Clinical Impression: Shortness of breath, Acute bronchitis Disposition: DC-01 TO HOME OR SELFCARE Is pt being admited?: No Does the pt Need Aspirin: No Condition: Stable Instructions: Acute Bronchitis (ED) Referrals: PRIMARY CARE,MD [Primary Care Provider] - 3-5 Days
[2017-01-08 03:48] VITALS: BP 163/98
--- NOTE | 2017-01-08 09:07 | XRay Report ---
Chest 2 views: History: Shortness of breath. Findings: Borderline cardiomegaly. Trachea is midline. Pulmonary venous congestion with bilateral pleural effusion. No consolidation. Impression Probable CHF.
== END 2017-01-08 04:25 | disposition home or self-care (01) ==
LOC: ED 20:38
DX: J20.9 Acute bronchitis, unspecified (principal); R06.02 Shortness of breath; E11.22 Type 2 diabetes mellitus with diabetic chronic kidney disease; I12.0 Hypertensive chronic kidney disease with stage 5 chronic kidney disease or end stage renal disease; N18.6 End stage renal disease; I50.9 Heart failure, unspecified; K21.9 Gastro-esophageal reflux disease without esophagitis; M19.90 Unspecified osteoarthritis, unspecified site; R56.9 Unspecified convulsions; F32.9 Major depressive disorder, single episode, unspecified; E78.00 Pure hypercholesterolemia, unspecified; Z88.6 Allergy status to analgesic agent; Z88.5 Allergy status to narcotic agent; Z91.013 Allergy to seafood; Z88.8 Allergy status to other drugs, medicaments and biological substances
CPT/HCPCS: 36415; 71020; 80048; 80061; 84484; 85025; 93005; 93010

== ENCOUNTER 2017-01-19 12:13 | Inpatient (IN) | payer MEDICARE ==
[2017-01-19 13:24] LABS: Basophils % (Auto) 0.9 % (0.0-1.8); Hematocrit 30.7 % (35.5-45.6); Hemoglobin 9.9 gm/dl (11.8-15.2); Mean Corpuscular HGB Conc 32 % (32-34); Mean Corpuscular Hemoglobin 27 pg (28-32); Mean Corpuscular Volume 82 fl (84-94); Platelet Count 205 K/mm3 (140-440); Red Blood Count 3.73 M/mm3 (3.65-5.03); Red Cell Distribution Width 19.8 % (13.2-15.2); White Blood Count 7.4 K/mm3 (4.5-11.0)
[2017-01-19 13:34] LABS: BUN/Creatinine Ratio 7.64; Calcium 7.6 mg/dL (8.4-10.2); Chloride 86.1 mmol/L (98-107); Potassium 4.7 mmol/L (3.6-5.0)
[2017-01-19] MEDS ORDERED: TESSALON PERLES PO ONE (18:10)
--- NOTE | 2017-01-19 18:25 | Emergency Department Report ---
HPI - General Chief Complaint: Chest Pain Time Seen by Provider: 01/19/17 17:59 - HPI HPI: Room 7 The patient is a 56-year-old male presenting with the chief complaint of intermittent headaches, chest pain cough and low back pain. The patient states his symptoms have been present intermittently for approximately one month but it has worsened today. Patient describes his chest pain is substernal and dull in nature. The patient states his pain associated with nausea vomiting and occasional diaphoresis. Patient denies shortness of breath. Patient is to cough productive of white sputum. The patient currently denies chest pain or headache stating the symptoms have resolved at this time. The patient received a cardiac catheterization 12/11/2016 which revealed moderate LV dysfunction with an EF of 30-35%, diffuse hypokinesis. Normal coronary anatomy with RCA being small, nondominant. Dilated cardiomyopathy with no significant coronary disease. Location: [see above] Duration: Intermittent times one month Quality: Pain Severity: Currently 0/10 Modifying factors: [see above] Context: [see above] Mode of transportation: [not driving] ED Past Medical Hx - Past Medical History Hx Hypertension: Yes Hx Congestive Heart Failure: Yes Hx Diabetes: Yes Hx GERD: Yes Hx Renal Disease: Yes (TUES / THURS / SAT) Hx Arthritis: Yes Hx Seizures: Yes Hx Psychiatric Treatment: Yes (depression) Additional medical history: sleep apnea, erectile dysfunction, dialysis, back pain, high cholesterol - Surgical History Past Surgical History?: No Additional Surgical History: biopsy on prostate, fistula left arm,. HERNIA REPAIR - Family History Family history: no significant - Social History Smoking Status: Current Every Day Smoker (1/7 pack per day) Substance Use Type: None (denies illicit drug use) - Medications Home Medications: Home Medications Medication Instructions Recorded Confirmed Last Taken Type AtorvaSTATin [Lipitor] 40 mg PO QHS #30 tablet 09/28/16 12/07/16 11/23/16 06:00 Rx Syring W-Ndl,Disp,Insul,0.3 ml 1 each [facility] #100 disp.syrin 09/28/16 12/07/16 11/08/16 Rx [Insulin Syringe/Needle 0.3 ML] Aspirin [Aspirin TAB] 81 mg PO QDAY 10/29/16 12/07/16 11/22/16 06:00 History Carvedilol [Coreg] 25 mg PO BID 60 Days 11/14/16 12/07/16 11/23/16 06:00 Rx Insulin Detemir [Levemir] 8 units SUB-Q QHS 30 Days 12/12/16 Unknown Rx hydrALAZINE [Apresoline TAB] 100 mg PO BID #60 tab 12/12/16 Unknown Rx Levofloxacin [Levaquin TAB] 500 mg PO QDAY #7 tablet 01/08/17 Unknown Rx ED Review of Systems ROS: Stated complaint: LT SIDE CHEST PAIN Other details as noted in HPI Comment: All other systems reviewed and negative Constitutional: denies: chills, fever Eyes: denies: eye pain, eye discharge, vision change ENT: denies: ear pain, throat pain Respiratory: cough Cardiovascular: chest pain Endocrine: no symptoms reported Gastrointestinal: nausea, vomiting Genitourinary: denies: urgency, dysuria Musculoskeletal: back pain Skin: denies: rash, lesions Neurological: headache. denies: weakness, paresthesias Psychiatric: denies: anxiety, depression Hematological/Lymphatic: denies: easy bleeding, easy bruising Physical Exam - Physical Exam Vital Signs: Vital Signs 01/19/17 12:41 Temperature 99.0 F Pulse Rate 82 Blood Pressure 154/102 O2 Sat by Pulse 99 Oximetry Physical Exam: GENERAL: The patient is well-developed well-nourished male lying on stretcher not appearing to be in acute distress. [] HEENT: Normocephalic. Atraumatic. Extraocular motions are intact. Patient has moist mucous membranes. NECK: Supple. No meningitic signs are noted. Trachea midline CHEST/LUNGS: Clear to auscultation. There is no respiratory distress noted. Occasional cough HEART/CARDIOVASCULAR: Regular. There is no tachycardia. There is no gallop rub or murmur. ABDOMEN: Abdomen is soft, nontender. Patient has normal bowel sounds. There is no abdominal distention. SKIN: There is no rash. There is no edema. There is no diaphoresis. NEURO: The patient is awake, alert, and oriented. The patient is cooperative. Moves all extremities well. The patient has normal speech MUSCULOSKELETAL: There is no evidence of acute injury. ED Course Vital Signs 01/19/17 12:41 Temperature 99.0 F Pulse Rate 82 Blood Pressure 154/102 O2 Sat by Pulse 99 Oximetry - Consultations Consultation #1: 01/19/17 18:31 Cardiology paged 01/19/17 18:[address] Thomson-recommends initiating nitroglycerin paste 1 inch every 6 hours and initiating amlodipine in case of vasospasm and having hospitalist admit ED Medical Decision Making - Lab Data Result diagrams: 01/19/17 12:53 01/19/17 12:53 Laboratory Tests 01/19/17 01/19/17 01/19/17 12:53 12:53 16:45 WBC 7.4 RBC 3.73 Hgb 9.9 L Hct 30.7 L MCV 82 L MCH 27 L MCHC 32 RDW 19.8 H Plt Count 205 Lymph % (Auto) 9.7 L [place] % (Auto) 4.9 Eos % (Auto) 12.0 H Baso % (Auto) 0.9 Lymph # 0.7 L [place] # 0.4 Eos # 0.9 H Baso # 0.1 Seg Neutrophils % 72.5 H Seg Neutrophils # 5.3 Sodium 129 L Potassium 4.7 Chloride 86.1 L Carbon Dioxide 26 Anion Gap 22 BUN 52 H Creatinine 6.8 H Estimated GFR 10 BUN/Creatinine Ratio 7.64 Glucose 354 H Calcium 7.6 L Troponin T 1.470 H* 1.510 H* Triglycerides 72 Cholesterol 88 LDL Cholesterol Direct 39 L HDL Cholesterol 35 L Cholesterol/HDL Ratio 2.51 Lipase 64 H - EKG Data -: EKG Interpreted by Me EKG shows normal: sinus rhythm Rate: normal - EKG Data When compared to previous EKG there are: no significant change Interpretation: unchanged when compared t (01/08/2017) - Radiology Data Radiology results: image reviewed (chest x-ray) interpreted by me: Chest x-ray-right middle lobe infiltrate - Differential Diagnosis pneumonia, ACS, CHF exacerbation Critical care attestation.: If time is entered above; I have spent that time in minutes in the direct care of this critically ill patient, excluding procedure time. ED Disposition Clinical Impression: Elevated troponin, Pneumonia, Chest pain Disposition: OP ADMIT IP TO THIS HOSP Is pt being admited?: Yes Does the pt Need Aspirin: Yes Condition: Fair Instructions: Bacterial Pneumonia (ED), Chest Pain (ED) Referrals: PRIMARY CARE, [Primary Care Provider] - 3-5 Days Time of Disposition: 18:45 (hospitalist notified)
[2017-01-19] MEDS ORDERED: NITRO-BID 2% TP ONE (18:43)
[2017-01-19] MEDS ORDERED: NORVASC PO ONE (18:43)
[2017-01-19] MEDS ORDERED: ASPIRIN PO ONE (18:45)
[2017-01-19] MEDS ORDERED: ZOSYN/NS 2.25 GM/50ML 2.25 GM/50 ML BAG IV ONE (18:46)
--- NOTE | 2017-01-19 19:04 | History and Physical Report ---
History of Present Illness Chief complaint: My chest hurts, and iht hard to breathe sometimes. History of present illness: 56 YO Male with HTN, CHF, ESRD on HD(T,R,Sa), ZEYAD, HLD, OA, Seizure disorder, GERD, Nicotine Dependence presents to ED for evaluation. Pt states that he has experienced intermittent pain is his chest, cough, and low back pain for the past month with worsening symptoms over the past 3 days. Pt states that pain is 2-4/10, but is currently 0/10. Pt states that when present, pain is substernal, dull, intermittent, associated with productive cough of white suptum, not worsened with exertion, or relieved with rest. The patient currently denies chest pain or headache stating the symptoms have resolved at this time. Pt denies feve, chills, palpitations, NVD,syncope, trauma, prolonged travel/ immobility, leg swelling, calf pain, individual/family history of DVT/PE. Past History Past Medical History: ESRD, heart failure, hypertension, hyperlipidemia Past Surgical History: hernia repair, Other (AVF) Social history: , lives with family, smoking. denies: alcohol abuse, prescription drug abuse, IV drug use Family history: diabetes, hypertension Medications and Allergies Allergies Allergy/AdvReac Type Severity Reaction Status Date / Time acetaminophen [From Percocet] Allergy Unknown Verified 11/08/16 11:28 morphine Allergy Unknown Verified 11/08/16 11:28 oxycodone Allergy Unknown Verified 11/08/16 11:28 oxycodone HCl [From Percocet] Allergy Unknown Verified 11/08/16 11:28 oxycodone terephthalate Allergy Itching Verified 11/08/16 11:28 [From Percodan] shellfish derived Allergy Unknown Verified 11/08/16 11:28 Home Medications Medication Instructions Recorded Confirmed Last Taken Type AtorvaSTATin [Lipitor] 40 mg PO QHS #30 tablet 09/28/16 12/07/16 11/23/16 06:00 Rx Syring W-Ndl,Disp,Insul,0.3 ml 1 each [facility] #100 disp.syrin 09/28/16 12/07/16 11/08/16 Rx [Insulin Syringe/Needle 0.3 ML] Aspirin [Aspirin TAB] 81 mg PO QDAY 10/29/16 12/07/16 11/22/16 06:00 History Carvedilol [Coreg] 25 mg PO BID 60 Days 11/14/16 12/07/16 11/23/16 06:00 Rx Insulin Detemir [Levemir] 8 units SUB-Q QHS 30 Days 12/12/16 Unknown Rx hydrALAZINE [Apresoline TAB] 100 mg PO BID #60 tab 12/12/16 Unknown Rx Levofloxacin [Levaquin TAB] 500 mg PO QDAY #7 tablet 01/08/17 Unknown Rx Active Meds: Active Medications Piperacillin Sod/Tazobactam Sod (Zosyn/Ns 2.25 Gm/50ml) 2.25 gm in 50 mls @ 100 mls/hr IV ONCE.ED ONE Stop: 01/19/17 19:15 Review of Systems Constitutional: no weight loss, no weight gain, no fever, no chills Ears, nose, mouth and throat: no ear pain, no ear discharge, no tinnitis, no decreased hearing Cardiovascular: chest pain, no orthopnea, no palpitations, no rapid/irregular heart beat, no edema, no high blood pressure, no leg edema Respiratory: cough with sputum, excessive sputum Gastrointestinal: no abdominal pain, no nausea, no vomiting, no diarrhea, no constipation Genitourinary Male: no dysuria, no hematuria, no flank pain, no discharge Rectal: no pain, no incontinence, no bleeding Musculoskeletal: no neck stiffness, no neck pain, no shooting arm pain, no arm numbness/tingling, no low back pain Integumentary: no rash, no pruritis, no redness, no sores Neurological: no transient paralysis, no paralysis, no weakness, no parathesias , no numbness Psychiatric: no memory loss, no change in sleep habits, no sleep disturbances, no insomnia, no hypersomnia, no change in appetite Endocrine: no heat intolerance, no polyphagia, no excessive thirst, no polydipsia, no polyuria, no nocturia Hematologic/Lymphatic: no easy bruising, no easy bleeding Allergic/Immunologic: no urticaria, no allergic rhinitis, no wheezing Exam - Constitutional Vitals: Temp Pulse Resp BP Pulse Ox 99.0 F 82 154/102 99 01/19/17 12:41 01/19/17 12:41 01/19/17 12:41 01/19/17 12:41 General appearance: Present: mild distress - EENT Eyes: Present: PERRL ENT: hearing intact, clear oral mucosa - Neck Neck: Present: supple, normal ROM - Respiratory Respiratory effort: labored Respiratory: right: diminished, rhonchi - Cardiovascular Heart Sounds: Present: S1 & S2. Absent: rub, click - Extremities Extremities: pulses symmetrical, No edema - Abdominal General gastrointestinal: Present: soft, non-tender, non-distended, normal bowel sounds Male genitourinary: Present: normal - Integumentary Integumentary: Present: clear, warm, dry - Musculoskeletal Musculoskeletal: gait normal, strength equal bilaterally - Psychiatric Psychiatric: appropriate mood/affect, intact judgment & insight - Neurologic Neurologic: CNII-XII intact, moves all extremities Results - Labs CBC & Chem 7: 01/19/17 12:53 01/19/17 19:34 Labs: Abnormal lab results 01/19/17 01/19/17 01/19/17 Range/Units 12:53 12:53 16:45 Hgb 9.9 L (11.8-15.2) gm/dl Hct 30.7 L (35.5-45.6) % MCV 82 L (84-94) fl MCH 27 L (28-32) pg RDW 19.8 H (13.2-15.2) % Lymph % (Auto) 9.7 L (13.4-35.0) % Eos % (Auto) 12.0 H (0.0-4.3) % Lymph # 0.7 L (1.2-5.4) K/mm3 Eos # 0.9 H (0.0-0.4) K/mm3 Seg Neutrophils % 72.5 H (40.0-70.0) % Sodium 129 L (137-145) mmol/L Chloride 86.1 L (98-107) mmol/L BUN 52 H (9-20) mg/dL Creatinine 6.8 H (0.8-1.5) mg/dL Glucose 354 H (75-100) mg/dL Calcium 7.6 L (8.4-10.2) mg/dL Troponin T 1.470 H* 1.510 H* (0.00-0.029) ng/mL LDL Cholesterol Direct 39 L (50-130) mg/dL HDL Cholesterol 35 L (40-59) mg/dL Lipase 64 H (13-60) units/L Assessment and Plan - Patient Problems (1) ACS (acute coronary syndrome) Current Visit: Yes Status: Acute Plan to address problem: Serial cardiac enzymes, ekg, telemetry, cardiology consulted, (2) Acute exacerbation of CHF (congestive heart failure) Current Visit: No Status: Acute Qualifiers: Congestive heart failure type: unspecified congestive heart failure type Qualified Code(s): I50.9 - Heart failure, unspecified Plan to address problem: cardiology consulted: serial cardiac enzyme, telemetry, monitor uop q shift, afterload reduction, low sodium diet, (3) Nicotine dependence Current Visit: Yes Status: Acute Qualifiers: Nicotine product type: N Substance use status: in withdrawal Plan to address problem: Pt refused to pick quit date, supportive care. (4) Aspiration pneumonia Current Visit: No Status: Acute Qualifiers: Aspiration pneumonia type: A Laterality: right Lung location: lower lobe of lung Plan to address problem: Pneumonia protocol:IV abx, nebulizer therapy, supplemental oxygen, supportive care, blood cultures. (5) ESRD (end stage renal disease) on dialysis Current Visit: No Status: Chronic Plan to address problem: Nephrology consulted for dialysis (6) DVT prophylaxis Current Visit: Yes Status: Acute
[2017-01-19] MEDS ORDERED: SODIUM CHLORIDE FLUSH SYRINGE 10 ML IV PRN (19:14)
[2017-01-19] MEDS ORDERED: PROVENTIL IH PRN (19:14)
[2017-01-19] MEDS ORDERED: TYLENOL PO PRN (19:14)
--- NOTE | 2017-01-19 19:29 | XRay Report ---
FINAL REPORT PROCEDURE: XR CHEST ROUTINE 2V TECHNIQUE: PA and lateral chest radiographs were obtained. CPT 21501 HISTORY: Chest pain. Cough. COMPARISON: No prior studies are available for comparison. FINDINGS: Heart: Mild cardiomegaly. Mediastinum/Vessels: Aortic calcification with mild tortuosity. Mild central vascular congestion. Right hilar prominence. Lungs/Pleural space: Perihilar indistinctness. Mild right lower lobe airspace disease. Small right pleural effusion with associated thickening of the right fissures. Bony thorax: Mild multilevel disc space narrowing and osteophytes. Slight age indeterminate compression in the mid thoracic spine. Other: IMPRESSION: Cardiomegaly. Aortic calcification and tortuosity. Mild central vascular congestion. Perihilar indistinctness with right lower lobe airspace disease and small right pleural effusion. Consider congestive heart failure with atelectasis, cannot exclude underlying pneumonia. Right hilar prominence, may be related to patient rotation. Consider followup PA and lateral chest radiograph in 2-4 weeks with re-evaluation at this time to begin further characterization if there is continued clinical concern.
[2017-01-19 20:05] LABS: BUN/Creatinine Ratio 7.5; Calcium 7.4 mg/dL (8.4-10.2); Chloride 87.7 mmol/L (98-107); Potassium 4.4 mmol/L (3.6-5.0)
[2017-01-19 20:15] LABS: Hematocrit 32.6 % (35.5-45.6); Hemoglobin 10.4 gm/dl (11.8-15.2); Mean Corpuscular HGB Conc 32 % (32-34); Mean Corpuscular Hemoglobin 26 pg (28-32); Mean Corpuscular Volume 82 fl (84-94); Platelet Count 222 K/mm3 (140-440); Red Blood Count 3.98 M/mm3 (3.65-5.03); Red Cell Distribution Width 19.8 % (13.2-15.2); White Blood Count 6.7 K/mm3 (4.5-11.0)
[2017-01-19 21:48] LABS: Blastocytes % (Manual) 0 %
[2017-01-19 21:49] LABS: Hypochromasia 2+; Large Platelets Few; Ovalocytes Few
[2017-01-19 21:50] LABS: Anisocytosis 1+; Diff Status Complete; Poikilocytosis 1+
[2017-01-19] MEDS ORDERED: COREG PO SCH (22:00)
[2017-01-19] MEDS: APRESOLINE PO SCH (22:06)
[2017-01-19] MEDS: COREG PO SCH (22:06)
[2017-01-19] MEDS: LEVEMIR SUB-Q SCH (23:23)
--- NOTE | 2017-01-20 12:31 | Consultation ---
History of Present Illness - Reason for Consult Consult date: 01/20/17 end stage renal disease - History of Present Illness Mr. Westfall is a 56yo with ESRD, CM and CAD s/p CABG who presented to the ED with chest pain. He reports that he was in usual state of health until yesterday when he began experiencing generalized pain - back, abdomen, chest. In addition , he reports nonproductive cough and SOB. He denies fever, chills. His last dialysis treatment was on . He continues to terminate HD treatment early. At present, he denies SOB - improved with supplemental oxygen. Past History Past Medical History: ESRD, heart failure, hypertension, hyperlipidemia Past Surgical History: hernia repair, Other (AVF) Social history: , lives with family, smoking. denies: alcohol abuse, prescription drug abuse, IV drug use Family history: diabetes, hypertension Medications and Allergies Allergies Allergy/AdvReac Type Severity Reaction Status Date / Time acetaminophen [From Percocet] Allergy Unknown Verified 11/08/16 11:28 morphine Allergy Unknown Verified 11/08/16 11:28 oxycodone Allergy Unknown Verified 11/08/16 11:28 oxycodone HCl [From Percocet] Allergy Unknown Verified 11/08/16 11:28 oxycodone terephthalate Allergy Itching Verified 11/08/16 11:28 [From Percodan] shellfish derived Allergy Unknown Verified 11/08/16 11:28 Home Medications Medication Instructions Recorded Confirmed Last Taken Type AtorvaSTATin [Lipitor] 40 mg PO QHS #30 tablet 09/28/16 12/07/16 11/23/16 06:00 Rx Syring W-Ndl,Disp,Insul,0.3 ml 1 each [facility] #100 disp.syrin 09/28/16 12/07/16 11/08/16 Rx [Insulin Syringe/Needle 0.3 ML] Aspirin [Aspirin TAB] 81 mg PO QDAY 10/29/16 12/07/16 11/22/16 06:00 History Carvedilol [Coreg] 25 mg PO BID 60 Days 11/14/16 12/07/16 11/23/16 06:00 Rx Insulin Detemir [Levemir] 8 units SUB-Q QHS 30 Days 12/12/16 Unknown Rx hydrALAZINE [Apresoline TAB] 100 mg PO BID #60 tab 12/12/16 Unknown Rx Levofloxacin [Levaquin TAB] 500 mg PO QDAY #7 tablet 01/08/17 Unknown Rx Active Meds: Active Medications Acetaminophen (Tylenol) 650 mg PO Q4H PRN PRN Reason: Pain MILD(1-3)/Fever >100.5/PADILLA Last Admin: 01/19/17 22:06 Dose: 650 mg Albuterol (Proventil) 2.5 mg IH Q4HRT PRN PRN Reason: Shortness Of Breath Aspirin (Aspirin) 81 mg PO QDAY [facility] Atorvastatin Calcium (Lipitor) 40 mg PO QHS [facility] Last Admin: 01/19/17 22:06 Dose: 40 mg Carvedilol (Coreg) 25 mg PO Q12HR [facility] Last Admin: 01/19/17 22:06 Dose: 25 mg Hydralazine HCl (Apresoline) 100 mg PO BID [facility] Last Admin: 01/19/17 22:06 Dose: 100 mg Azithromycin 500 mg/ Sodium (Chloride) 250 mls @ 250 mls/hr IV Q24HR [facility] PRN Reason: Protocol Ceftriaxone Sodium (Rocephin/Ns 1 Gm/50 Ml) 1 gm in 50 mls @ 100 mls/hr IV Q24HR [facility] PRN Reason: Protocol Insulin Detemir (Levemir) 8 units SUB-Q QHS [facility] Last Admin: 01/19/17 23:23 Dose: 8 units Sodium Chloride (Sodium Chloride Flush Syringe 10 Ml) 10 ml IV PRN PRN PRN Reason: LINE FLUSH Review of Systems All systems: negative Constitutional: no fever, no chills, no sweats Cardiovascular: chest pain Respiratory: cough, shortness of breath Gastrointestinal: abdominal pain Musculoskeletal: low back pain Exam - Vital Signs Vital signs: Vital Signs Temp Pulse BP Pulse Ox 99.0 F 82 154/102 99 01/19/17 12:41 01/19/17 12:41 01/19/17 12:41 01/19/17 12:41 - General Appearance General appearance: well-developed, well-nourished, other (NAD) EENT: ATNC Respiratory: Decreased Breath Sounds Heart: regular, S1S2 Gastrointestinal: Present: normoactive bowel sounds, distended. Absent: tenderness Integumentary: no rash Neurologic: alert and oriented x3 Musculoskeletal: Present: other (+edema) Psychiatric: cooperative Results - Lab Results 01/19/17 19:34 01/19/17 19:34 Most recent lab results Calcium 7.4 mg/dL (8.4-10.2) L 01/19/17 19:34 Assessment and Plan Impression: * End stage renal disease on HD TTS * Chest pain --[facility] (November 2016): no significant coronary disease, EF 30 - 35%. * Cardiomyopathy * Type II diabetes mellitus - uncontrolled * Hypertension * Hx of abdominal ascites * Anemia secondary to ESRD * Secondary hyperparathyroidism Plan: * No acute indication for dialysis today * Will plan for HD tomorrow - UF as tolerated * Resume TTS schedule thereafter * Cardiac work up per primary team * Renal diet * Epogen for goal Hb 10-12
[2017-01-20] MEDS ORDERED: NACL 0.9% 1000 ML 1,000 ML IV PRN (13:40)
[2017-01-20] MEDS ORDERED: NACL 0.9% 100 ML IV PRN (13:40)
[2017-01-20] MEDS ORDERED: ALBURX 25% (ALBUMIN) IV PRN (13:40)
--- NOTE | 2017-01-20 15:34 | Progress Note ---
Assessment and Plan Assessment and plan: Atypical chest pain - Patient has chest pain with elevated troponin on the setting of ESRD - Patient has elevated troponin on his previous admissions too - Cardiac workup previously was negative - Cardiology consult placed Chronic systolic CHF - Continue medical management ESRD on hemodialysis - Patient is on hemodialysis TTS - Nephrology consulted RLL pneumonia - Patient is on Zithromax and ceftriaxone DVT prophylaxis - Heparin Disposition - Continue patient care History Interval history: Patient was seen and evaluated this morning, the patient is complaining chest pain and chronic cough. Hospitalist Physical - Physical exam Narrative exam: Not in cardiopulmonary distress. The patient appeared well nourished and normally developed. Vital signs as documented. Head exam is unremarkable. No scleral icterus . Neck is without jugular venous distension, thyromegaly, or carotid bruits. Lungs are clear to auscultation. Cardiac exam reveals regular rate and Rhythm. Abdominal exam reveals normal bowel sounds, no masses. Extremities are nonedematous and both femoral and pedal pulses are normal. ORDERING MACHINE OPERATOR: Alert and oriented 3. - Constitutional Vitals: Temp Pulse Resp BP Pulse Ox 97.8 F 67 20 122/77 98 01/20/17 07:00 01/20/17 07:00 01/20/17 07:00 01/20/17 07:00 01/20/17 07:00 General appearance: Present: mild distress Results - Labs CBC & Chem 7: 01/19/17 19:34 01/19/17 19:34 Labs: Laboratory Last Values WBC 6.7 K/mm3 (4.5-11.0) 01/19/17 19:34 RBC 3.98 M/mm3 (3.65-5.03) 01/19/17 19:34 Hgb 10.4 gm/dl (11.8-15.2) L 01/19/17 19:34 Hct 32.6 % (35.5-45.6) L 01/19/17 19:34 MCV 82 fl (84-94) L 01/19/17 19:34 MCH 26 pg (28-32) L 01/19/17 19:34 MCHC 32 % (32-34) 01/19/17 19:34 RDW 19.8 % (13.2-15.2) H 01/19/17 19:34 Plt Count 222 K/mm3 (140-440) 01/19/17 19:34 Lymph % (Auto) 9.7 % (13.4-35.0) L 01/19/17 12:53 [place] % (Auto) 4.9 % (0.0-7.3) 01/19/17 12:53 Eos % (Auto) Track Man 01/19/17 19:34 Baso % (Auto) 0.9 % (0.0-1.8) 01/19/17 12:53 Lymph # 0.7 K/mm3 (1.2-5.4) L 01/19/17 12:53 [place] # 0.4 K/mm3 (0.0-0.8) 01/19/17 12:53 Eos # 0.9 K/mm3 (0.0-0.4) H 01/19/17 12:53 Baso # 0.1 K/mm3 (0.0-0.1) 01/19/17 12:53 Add Manual Diff Complete 01/19/17 19:34 Total Counted 100 01/19/17 19:34 Seg Neutrophils % 72.5 % (40.0-70.0) H 01/19/17 12:53 Seg Neuts % (Manual) 62.0 % (40.0-70.0) 01/19/17 19:34 Band Neutrophils % 1.0 % 01/19/17 19:34 Lymphocytes % (Manual) 11.0 % (13.4-35.0) L 01/19/17 19:34 Reactive Lymphs % (Man) 0 % 01/19/17 19:34 Monocytes % (Manual) 5.0 % (0.0-7.3) 01/19/17 19:34 Eosinophils % (Manual) 20.0 % (0.0-4.3) H 01/19/17 19:34 Basophils % (Manual) 1.0 % (0.0-1.8) 01/19/17 19:34 Metamyelocytes % 0 % 01/19/17 19:34 Myelocytes % 0 % 01/19/17 19:34 Promyelocytes % 0 % 01/19/17 19:34 Blast Cells % 0 % 01/19/17 19:34 Nucleated RBC % Not Reportable 01/19/17 19:34 Seg Neutrophils # 5.3 K/mm3 (1.8-7.7) 01/19/17 12:53 Seg Neutrophils # Man 4.2 K/mm3 (1.8-7.7) 01/19/17 19:34 Band Neutrophils # 0.1 K/mm3 01/19/17 19:34 Lymphocytes # (Manual) 0.7 K/mm3 (1.2-5.4) L 01/19/17 19:34 Abs React Lymphs (Man) 0.0 K/mm3 01/19/17 19:34 Monocytes # (Manual) 0.3 K/mm3 (0.0-0.8) 01/19/17 19:34 Eosinophils # (Manual) 1.3 K/mm3 (0.0-0.4) H 01/19/17 19:34 Basophils # (Manual) 0.1 K/mm3 (0.0-0.1) 01/19/17 19:34 Metamyelocytes # 0.0 K/mm3 01/19/17 19:34 Myelocytes # 0.0 K/mm3 01/19/17 19:34 Promyelocytes # 0.0 K/mm3 01/19/17 19:34 Blast Cells # 0.0 K/mm3 01/19/17 19:34 WBC Morphology Not Reportable 01/19/17 19:34 Hypersegmented Neuts Not Reportable 01/19/17 19:34 Hyposegmented Neuts Not Reportable 01/19/17 19:34 Hypogranular Neuts Not Reportable 01/19/17 19:34 Smudge Cells Not Reportable 01/19/17 19:34 Toxic Granulation Not Reportable 01/19/17 19:34 Toxic Vacuolation Not Reportable 01/19/17 19:34 Dohle Bodies Not Reportable 01/19/17 19:34 Pelger-Huet Anomaly Not Reportable 01/19/17 19:34 Jonn Rods Not Reportable 01/19/17 19:34 Platelet Estimate Appears normal 01/19/17 19:34 Clumped Platelets Not Reportable 01/19/17 19:34 Plt Clumps, EDTA Not Reportable 01/19/17 19:34 Large Platelets Few 01/19/17 19:34 Giant Platelets Not Reportable 01/19/17 19:34 Platelet Satelliting Not Reportable 01/19/17 19:34 Plt Morphology Comment Not Reportable 01/19/17 19:34 RBC Morphology Not Reportable 01/19/17 19:34 Dimorphic RBCs Not Reportable 01/19/17 19:34 Polychromasia Not Reportable 01/19/17 19:34 Hypochromasia 2+ 01/19/17 19:34 Poikilocytosis 1+ 01/19/17 19:34 Anisocytosis 1+ 01/19/17 19:34 Microcytosis Not Reportable 01/19/17 19:34 Macrocytosis Not Reportable 01/19/17 19:34 Spherocytes Not Reportable 01/19/17 19:34 Pappenheimer Bodies Not Reportable 01/19/17 19:34 Sickle Cells Not Reportable 01/19/17 19:34 Target Cells Not Reportable 01/19/17 19:34 Tear Drop Cells Not Reportable 01/19/17 19:34 Ovalocytes Few 01/19/17 19:34 Helmet Cells Not Reportable 01/19/17 19:34 [place] Bodies Not Reportable 01/19/17 19:34 [employer] Rings Not Reportable 01/19/17 19:34 Daniel Cells Not Reportable 01/19/17 19:34 Bite Cells Not Reportable 01/19/17 19:34 Crenated Cell Not Reportable 01/19/17 19:34 Elliptocytes Not Reportable 01/19/17 19:34 Acanthocytes (Spur) Not Reportable 01/19/17 19:34 Rouleaux Not Reportable 01/19/17 19:34 Hemoglobin C Crystals Not Reportable 01/19/17 19:34 Schistocytes Not Reportable 01/19/17 19:34 Malaria parasites Not Reportable 01/19/17 19:34 Jas Bodies Not Reportable 01/19/17 19:34 Hem Pathologist Commnt No 01/19/17 19:34 Sodium 130 mmol/L (137-145) L 01/19/17 19:34 Potassium 4.4 mmol/L (3.6-5.0) 01/19/17 19:34 Chloride 87.7 mmol/L (98-107) L 01/19/17 19:34 Carbon Dioxide 23 mmol/L (22-30) 01/19/17 19:34 Anion Gap 24 mmol/L 01/19/17 19:34 BUN 54 mg/dL (9-20) H 01/19/17 19:34 Creatinine 7.2 mg/dL (0.8-1.5) H 01/19/17 19:34 Estimated GFR 10 ml/min 01/19/17 19:34 BUN/Creatinine Ratio 7.50 % 01/19/17 19:34 Glucose 216 mg/dL (75-100) H 01/19/17 19:34 POC Glucose 384 (70-105) H 01/19/17 23:12 Calcium 7.4 mg/dL (8.4-10.2) L 01/19/17 19:34 Troponin T 1.400 ng/mL (0.00-0.029) H* 01/20/17 00:52 Triglycerides 72 mg/dL (2-149) 01/19/17 12:53 Cholesterol 88 mg/dL (50-199) 01/19/17 12:53 LDL Cholesterol Direct 39 mg/dL (50-130) L 01/19/17 12:53 HDL Cholesterol 35 mg/dL (40-59) L 01/19/17 12:53 Cholesterol/HDL Ratio 2.51 % 01/19/17 12:53 Lipase 64 units/L (13-60) H 01/19/17 12:53
[2017-01-20] MEDS ORDERED: MORPHINE IV PRN (15:47)
[2017-01-20] MEDS: ROCEPHIN/NS 1 GM/50 ML 1 GM/50 ML BAG IV SCH (15:50)
[2017-01-20] MEDS: APRESOLINE PO SCH ×2 (15:56→22:59)
[2017-01-20] MEDS: COREG PO SCH ×2 (15:56→22:59)
[2017-01-20] MEDS: ASPIRIN PO SCH (15:57)
[2017-01-20] MEDS: ZITHROMAX 500 MG in NACL 0.9% 250ML 250 ML IV SCH (16:02)
--- NOTE | 2017-01-20 20:27 | XRay Report ---
FINAL REPORT EXAM: XR ABD SERIES W CXR 1V HISTORY: ABD DISTENSION AND MILD FIRMNEDD. COMPARISON: Chest x-ray from yesterday. FINDINGS: Single frontal view of the chest demonstrates stable borderline cardiac enlargement. Patchy interstitial opacities bilateral perihilar regions medial right lung base are unchanged most concerning for congestion. Pneumonia cannot be excluded. No pneumothorax. Probable trace right-sided pleural effusion. AP views of the abdomen obtained upright and supine. No gross free air. Mild gas-filled distention of small bowel loops in the mid abdomen. Gas is scattered within nondilated large bowel. No gross pathological calcifications. IMPRESSION: Stable bilateral pulmonary opacities most concerning for congestion. Superimposed pneumonia cannot be excluded. Mild gas-filled prominence of small bowel loops in the mid abdomen concerning for ileus. No evidence of harris bowel obstruction at this time.
[2017-01-20] MEDS: LEVEMIR SUB-Q SCH (23:00)
[2017-01-21 06:29] LABS: Hematocrit 27.5 % (35.5-45.6); Hemoglobin 8.9 gm/dl (11.8-15.2); Mean Corpuscular HGB Conc 32 % (32-34); Mean Corpuscular Hemoglobin 27 pg (28-32); Mean Corpuscular Volume 82 fl (84-94); Platelet Count 205 K/mm3 (140-440); Red Blood Count 3.37 M/mm3 (3.65-5.03); Red Cell Distribution Width 19.5 % (13.2-15.2); White Blood Count 6.5 K/mm3 (4.5-11.0)
[2017-01-21 06:47] LABS: BUN/Creatinine Ratio 8.64; Calcium 7.3 mg/dL (8.4-10.2); Chloride 87.7 mmol/L (98-107); Potassium 4.9 mmol/L (3.6-5.0)
[2017-01-21 07:31] LABS: Basophils % (Manual) 0 % (0.0-1.8); Blastocytes % (Manual) 0 %
[2017-01-21 07:32] LABS: Anisocytosis 1+; Diff Status Complete; Hypochromasia 1+; Macrocytosis Few; Platelet Estimate Consistent w Auto; Polychromasia Rare
[2017-01-21] MEDS: ZITHROMAX 500 MG in NACL 0.9% 250ML 250 ML IV SCH (10:30)
[2017-01-21] MEDS: ROCEPHIN/NS 1 GM/50 ML 1 GM/50 ML BAG IV SCH (10:30)
[2017-01-21] MEDS: APRESOLINE PO SCH ×2 (10:30→21:05)
--- NOTE | 2017-01-21 12:12 | Consultation ---
History of Present Illness Consult date: 01/21/17 Consult reason: chest pain History of present illness: Impression Non-ischemic chest pain, sounds pleuritic Normal cors by cath 11/2016 EF 30-35%, by echo EF 45-50%. ESRD HTN Hyperlipidemia Diabetes-IR Plan conservative managment with medical therapy for CMP Past History Past Medical History: ESRD, heart failure, hypertension, hyperlipidemia Past Surgical History: hernia repair, Other (AVF) Social history: , lives with family, smoking. denies: alcohol abuse, prescription drug abuse, IV drug use Family history: diabetes, hypertension Medications and Allergies Allergies Allergy/AdvReac Type Severity Reaction Status Date / Time acetaminophen [From Percocet] Allergy Unknown Verified 11/08/16 11:28 morphine Allergy Unknown Verified 11/08/16 11:28 oxycodone Allergy Unknown Verified 11/08/16 11:28 oxycodone HCl [From Percocet] Allergy Unknown Verified 11/08/16 11:28 oxycodone terephthalate Allergy Itching Verified 11/08/16 11:28 [From Percodan] shellfish derived Allergy Unknown Verified 11/08/16 11:28 Home Medications Medication Instructions Recorded Confirmed Last Taken Type AtorvaSTATin [Lipitor] 40 mg PO QHS #30 tablet 09/28/16 12/07/16 11/23/16 06:00 Rx Syring W-Ndl,Disp,Insul,0.3 ml 1 each [facility] #100 disp.syrin 09/28/16 12/07/16 11/08/16 Rx [Insulin Syringe/Needle 0.3 ML] Aspirin [Aspirin TAB] 81 mg PO QDAY 10/29/16 12/07/16 11/22/16 06:00 History Carvedilol [Coreg] 25 mg PO BID 60 Days 11/14/16 12/07/16 11/23/16 06:00 Rx Insulin Detemir [Levemir] 8 units SUB-Q QHS 30 Days 12/12/16 Unknown Rx hydrALAZINE [Apresoline TAB] 100 mg PO BID #60 tab 12/12/16 Unknown Rx Levofloxacin [Levaquin TAB] 500 mg PO QDAY #7 tablet 01/08/17 Unknown Rx Active Meds: Active Medications Acetaminophen (Tylenol) 650 mg PO Q4H PRN PRN Reason: Pain MILD(1-3)/Fever >100.5/PADILLA Last Admin: 01/19/17 22:06 Dose: 650 mg Albumin Human (Alburx 25% (Albumin)) 25 gm IV EDGARDO PRN PRN Reason: Hypotension Albuterol (Proventil) 2.5 mg IH Q4HRT PRN PRN Reason: Shortness Of Breath Aspirin (Aspirin) 81 mg PO QDAY [facility] Last Admin: 01/20/17 15:57 Dose: 81 mg Atorvastatin Calcium (Lipitor) 40 mg PO QHS [facility] Last Admin: 01/20/17 22:59 Dose: 40 mg Carvedilol (Coreg) 25 mg PO Q12HR [facility] Last Admin: 01/20/17 22:59 Dose: 25 mg Hydralazine HCl (Apresoline) 100 mg PO BID [facility] Last Admin: 01/20/17 22:59 Dose: 100 mg Azithromycin 500 mg/ Sodium (Chloride) 250 mls @ 250 mls/hr IV Q24HR [facility] PRN Reason: Protocol Last Admin: 01/20/17 16:02 Dose: 250 mls/hr Ceftriaxone Sodium (Rocephin/Ns 1 Gm/50 Ml) 1 gm in 50 mls @ 100 mls/hr IV Q24HR [facility] PRN Reason: Protocol Last Admin: 01/20/17 15:50 Dose: 100 mls/hr Sodium Chloride (Nacl 0.9%) 100 mls @ 999 mls/hr IV EDGARDO PRN PRN Reason: Hypotension Sodium Chloride (Nacl 0.9% 1000 Ml) 1,000 mls @ 100 mls/hr IV EDGARDO PRN PRN Reason: FOR MUSCLE CRAMPS DURING HEMO Insulin Detemir (Levemir) 8 units SUB-Q QHS [facility] Last Admin: 01/20/17 23:00 Dose: 8 units Morphine Sulfate (Morphine) 2 mg IV Q4H PRN PRN Reason: Pain, Moderate (4-6) Sodium Chloride (Sodium Chloride Flush Syringe 10 Ml) 10 ml IV PRN PRN PRN Reason: LINE FLUSH Physical Examination Vital Signs Temp Pulse BP Pulse Ox 99.0 F 82 154/102 99 01/19/17 12:41 01/19/17 12:41 01/19/17 12:41 01/19/17 12:41 General appearance: no acute distress HEENT: Positive: PERRL, EOMI Neck: Positive: neck supple Cardiac: Positive: Reg Rate and Rhythm, S1/S2, Other (no rub) Lungs: Positive: Normal Exam Abdomen: Positive: Unremarkable Extremities: Absent: edema Results 01/21/17 05:13 01/21/17 05:13 CBC 01/21/17 Range/Units 05:13 WBC 6.5 (4.5-11.0) K/mm3 RBC 3.37 L (3.65-5.03) M/mm3 Hgb 8.9 L (11.8-15.2) gm/dl Hct 27.5 L (35.5-45.6) % Plt Count 205 (140-440) K/mm3 Comprehensive Metabolic Panel 01/21/17 Range/Units 05:13 Sodium 130 L (137-145) mmol/L Potassium 4.9 (3.6-5.0) mmol/L Chloride 87.7 L (98-107) mmol/L Carbon Dioxide 26 (22-30) mmol/L BUN 70 H (9-20) mg/dL Creatinine 8.1 H (0.8-1.5) mg/dL Glucose 268 H (75-100) mg/dL Calcium 7.3 L (8.4-10.2) mg/dL
--- NOTE | 2017-01-21 12:21 | Progress Note ---
Assessment and Plan Impression: * End stage renal disease on HD TTS * Chest pain --[facility] (November 2016): no significant coronary disease, EF 30 - 35%. * Cardiomyopathy * Type II diabetes mellitus - uncontrolled * Hypertension * Hx of abdominal ascites * Anemia secondary to ESRD * Secondary hyperparathyroidism Plan: * Hemodialysis today * Resume outpatient TTS schedule tomorrow * Cardiac work up per primary team * Renal diet * Epogen for goal Hb 10-12 Subjective Date of service: 01/21/17 Interval history: Patient seen on dialysis. He denies chest pain and SOB. Objective - Vital Signs Vital signs: Vital Signs - 12hr 01/21/17 01/21/17 01/21/17 04:05 06:00 07:35 Temperature 97.8 F 98.3 F Pulse Rate 68 83 70 Respiratory 18 20 Rate Blood Pressure 147/91 Blood Pressure 115/79 [Left] O2 Sat by Pulse 100 91 Oximetry 01/21/17 01/21/17 01/21/17 07:44 10:50 11:00 Temperature 98.3 F 97.5 F L Pulse Rate 65 66 Respiratory 20 18 Rate Blood Pressure 115/79 120/75 122/88 Blood Pressure [Left] O2 Sat by Pulse Oximetry 01/21/17 01/21/17 01/21/17 11:15 11:30 11:45 Temperature Pulse Rate 69 69 71 Respiratory Rate Blood Pressure 121/82 120/80 134/83 Blood Pressure [Left] O2 Sat by Pulse Oximetry 01/21/17 12:00 Temperature Pulse Rate 71 Respiratory Rate Blood Pressure 117/72 Blood Pressure [Left] O2 Sat by Pulse Oximetry - General Appearance General appearance: well-developed, well-nourished EENT: ATNC Respiratory: Present: Clear to Ascultation Cardiology: regular, S1S2 Gastrointestinal: no tenderness, distended (soft) Integumentary: no rash Musculoskeletal: other (trace edema) Psychiatric: cooperative - Lab 01/21/17 05:13 01/21/17 05:13 Most recent lab results Calcium 7.3 mg/dL (8.4-10.2) L 01/21/17 05:13
[2017-01-21] MEDS ORDERED: NACL 0.9% 100 ML IV PRN (14:12)
--- NOTE | 2017-01-21 15:39 | Progress Note ---
Assessment and Plan Assessment and plan: Atypical chest pain - Patient has chest pain with elevated troponin on the setting of ESRD - Patient has elevated troponin on his previous admissions too - Cardiac workup previously was negative - Cardiology consult placed Chronic systolic CHF - Continue medical management ESRD on hemodialysis - Patient is on hemodialysis TTS - Nephrology consulted RLL pneumonia - Patient is on Zithromax and ceftriaxone DVT prophylaxis - Heparin Disposition - Continue patient care History Interval history: Patient was seen and evaluated this morning, the patient chest pain and breathing difficulty markedly improved. Hospitalist Physical - Physical exam Narrative exam: Not in cardiopulmonary distress. The patient appeared well nourished and normally developed. Vital signs as documented. Head exam is unremarkable. No scleral icterus . Neck is without jugular venous distension, thyromegaly, or carotid bruits. Lungs are clear to auscultation. Cardiac exam reveals regular rate and Rhythm. Abdominal exam reveals normal bowel sounds, no masses. Extremities are nonedematous and both femoral and pedal pulses are normal. 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 - Constitutional Vitals: Temp Pulse Resp BP Pulse Ox 97.5 F L 72 18 140/80 91 01/21/17 10:50 01/21/17 13:15 01/21/17 10:50 01/21/17 13:15 01/21/17 07:35 General appearance: Present: no acute distress Results - Labs CBC & Chem 7: 01/21/17 05:13 01/21/17 05:13 Labs: Laboratory Last Values WBC 6.5 K/mm3 (4.5-11.0) 01/21/17 05:13 RBC 3.37 M/mm3 (3.65-5.03) L 01/21/17 05:13 Hgb 8.9 gm/dl (11.8-15.2) L 01/21/17 05:13 Hct 27.5 % (35.5-45.6) L 01/21/17 05:13 MCV 82 fl (84-94) L 01/21/17 05:13 MCH 27 pg (28-32) L 01/21/17 05:13 MCHC 32 % (32-34) 01/21/17 05:13 RDW 19.5 % (13.2-15.2) H 01/21/17 05:13 Plt Count 205 K/mm3 (140-440) 01/21/17 05:13 Lymph % (Auto) 9.7 % (13.4-35.0) L 01/19/17 12:53 [place] % (Auto) 4.9 % (0.0-7.3) 01/19/17 12:53 Eos % (Auto) Physician Assistant Certified 01/21/17 05:13 Baso % (Auto) 0.9 % (0.0-1.8) 01/19/17 12:53 Lymph # 0.7 K/mm3 (1.2-5.4) L 01/19/17 12:53 [place] # 0.4 K/mm3 (0.0-0.8) 01/19/17 12:53 Eos # 0.9 K/mm3 (0.0-0.4) H 01/19/17 12:53 Baso # 0.1 K/mm3 (0.0-0.1) 01/19/17 12:53 Add Manual Diff Complete 01/21/17 05:13 Total Counted 100 01/21/17 05:13 Seg Neutrophils % 72.5 % (40.0-70.0) H 01/19/17 12:53 Seg Neuts % (Manual) 67.0 % (40.0-70.0) 01/21/17 05:13 Band Neutrophils % 0 % 01/21/17 05:13 Lymphocytes % (Manual) 11.0 % (13.4-35.0) L 01/21/17 05:13 Reactive Lymphs % (Man) 0 % 01/21/17 05:13 Monocytes % (Manual) 6.0 % (0.0-7.3) 01/21/17 05:13 Eosinophils % (Manual) 16.0 % (0.0-4.3) H 01/21/17 05:13 Basophils % (Manual) 0 % (0.0-1.8) 01/21/17 05:13 Metamyelocytes % 0 % 01/21/17 05:13 Myelocytes % 0 % 01/21/17 05:13 Promyelocytes % 0 % 01/21/17 05:13 Blast Cells % 0 % 01/21/17 05:13 Nucleated RBC % Not Reportable 01/21/17 05:13 Seg Neutrophils # 5.3 K/mm3 (1.8-7.7) 01/19/17 12:53 Seg Neutrophils # Man 4.4 K/mm3 (1.8-7.7) 01/21/17 05:13 Band Neutrophils # 0.0 K/mm3 01/21/17 05:13 Lymphocytes # (Manual) 0.7 K/mm3 (1.2-5.4) L 01/21/17 05:13 Abs React Lymphs (Man) 0.0 K/mm3 01/21/17 05:13 Monocytes # (Manual) 0.4 K/mm3 (0.0-0.8) 01/21/17 05:13 Eosinophils # (Manual) 1.0 K/mm3 (0.0-0.4) H 01/21/17 05:13 Basophils # (Manual) 0.0 K/mm3 (0.0-0.1) 01/21/17 05:13 Metamyelocytes # 0.0 K/mm3 01/21/17 05:13 Myelocytes # 0.0 K/mm3 01/21/17 05:13 Promyelocytes # 0.0 K/mm3 01/21/17 05:13 Blast Cells # 0.0 K/mm3 01/21/17 05:13 WBC Morphology Not Reportable 01/21/17 05:13 Hypersegmented Neuts Not Reportable 01/21/17 05:13 Hyposegmented Neuts Not Reportable 01/21/17 05:13 Hypogranular Neuts Not Reportable 01/21/17 05:13 Smudge Cells Not Reportable 01/21/17 05:13 Toxic Granulation Not Reportable 01/21/17 05:13 Toxic Vacuolation Not Reportable 01/21/17 05:13 Dohle Bodies Not Reportable 01/21/17 05:13 Pelger-Huet Anomaly Not Reportable 01/21/17 05:13 Jonn Rods Not Reportable 01/21/17 05:13 Platelet Estimate Consistent w auto 01/21/17 05:13 Clumped Platelets Not Reportable 01/21/17 05:13 Plt Clumps, EDTA Not Reportable 01/21/17 05:13 Large Platelets Not Reportable 01/21/17 05:13 Giant Platelets Not Reportable 01/21/17 05:13 Platelet Satelliting Not Reportable 01/21/17 05:13 Plt Morphology Comment Not Reportable 01/21/17 05:13 RBC Morphology Not Reportable 01/21/17 05:13 Dimorphic RBCs Not Reportable 01/21/17 05:13 Polychromasia Rare 01/21/17 05:13 Hypochromasia 1+ 01/21/17 05:13 Poikilocytosis Not Reportable 01/21/17 05:13 Anisocytosis 1+ 01/21/17 05:13 Microcytosis Not Reportable 01/21/17 05:13 Macrocytosis Few 01/21/17 05:13 Spherocytes Not Reportable 01/21/17 05:13 Pappenheimer Bodies Not Reportable 01/21/17 05:13 Sickle Cells Not Reportable 01/21/17 05:13 Target Cells Not Reportable 01/21/17 05:13 Tear Drop Cells Not Reportable 01/21/17 05:13 Ovalocytes Not Reportable 01/21/17 05:13 Helmet Cells Not Reportable 01/21/17 05:13 Vargas-[place] Bodies Not Reportable 01/21/17 05:13 [place] Rings Not Reportable 01/21/17 05:13 Daniel Cells Not Reportable 01/21/17 05:13 Bite Cells Not Reportable 01/21/17 05:13 Crenated Cell Not Reportable 01/21/17 05:13 Elliptocytes Not Reportable 01/21/17 05:13 Acanthocytes (Spur) Not Reportable 01/21/17 05:13 Rouleaux Not Reportable 01/21/17 05:13 Hemoglobin C Crystals Not Reportable 01/21/17 05:13 Schistocytes Not Reportable 01/21/17 05:13 Malaria parasites Not Reportable 01/21/17 05:13 Jas Bodies Not Reportable 01/21/17 05:13 Hem Pathologist Commnt No 01/21/17 05:13 Sodium 130 mmol/L (137-145) L 01/21/17 05:13 Potassium 4.9 mmol/L (3.6-5.0) 01/21/17 05:13 Chloride 87.7 mmol/L (98-107) L 01/21/17 05:13 Carbon Dioxide 26 mmol/L (22-30) 01/21/17 05:13 Anion Gap 21 mmol/L 01/21/17 05:13 BUN 70 mg/dL (9-20) H 01/21/17 05:13 Creatinine 8.1 mg/dL (0.8-1.5) H 01/21/17 05:13 Estimated GFR 8 ml/min 01/21/17 05:13 BUN/Creatinine Ratio 8.64 % 01/21/17 05:13 Glucose 268 mg/dL (75-100) H 01/21/17 05:13 POC Glucose 238 (70-105) H 01/21/17 07:46 Calcium 7.3 mg/dL (8.4-10.2) L 01/21/17 05:13 Troponin T 1.400 ng/mL (0.00-0.029) H* 01/20/17 00:52 Triglycerides 72 mg/dL (2-149) 01/19/17 12:53 Cholesterol 88 mg/dL (50-199) 01/19/17 12:53 LDL Cholesterol Direct 39 mg/dL (50-130) L 01/19/17 12:53 HDL Cholesterol 35 mg/dL (40-59) L 01/19/17 12:53 Cholesterol/HDL Ratio 2.51 % 01/19/17 12:53 Lipase 64 units/L (13-60) H 01/19/17 12:53
[2017-01-21] MEDS ORDERED: NACL 0.9 (PRIMING MACHINE ONLY DIALYSIS) MC ONE (17:30)
[2017-01-21] MEDS: ASPIRIN PO SCH (19:52)
[2017-01-21] MEDS: COREG PO SCH ×2 (19:52→21:05)
[2017-01-21] MEDS: LEVEMIR SUB-Q SCH (21:06)
--- NOTE | 2017-01-22 00:22 | Admit Criteria Form ---
Admission Criteria Documentation: ANGINA Clinical Indications for Admission to Inpatient Care (Place 'X' for any and all applicable criteria): Admission is indicated for suspected angina (e.g, chest pain pattern, angina- equivalent symptom, or other finding suggesting unstable angina) with ANY ONE of the following(1)(2)(3)(4)(5): [ ]I. Angina needing acute intervention as indicated by ALL of the following ( 11)(12): [ ]a) Unstable angina is present as indicated by angina that is ANY ONE of the following: [ ]i) New onset [ ]ii) Nocturnal [ ]iii) Prolonged at rest [ ]iv) Progressive [ ]b) Angina warrants acute intervention as indicated by ANY ONE of the following: [ ]i) Recurrent angina (e.g, not responding as previously to treatment) [ ]ii) Angina at rest or with low-level activities despite initial medical therapy [ ]iii) New or presumably new ST-segment depression on ECG [ ]iv) Signs or symptoms of heart failure (eg, dyspnea, pulmonary edema) [ ]v) New or worsening mitral regurgitation [ ]vi) Hemodynamic instability [ ]vii) Dangerous arrhythmia (eg, sustained ventricular tachycardia) [ ]viii) History of percutaneous coronary intervention within 6 months [ ]ix) History of coronary artery bypass graft surgery [ ]x) MELECIO risk score of 2 or greater[A] [ ]xi) History of Diabetes(14) [ ]xii) High-risk cardiac ischemia findings on noninvasive testing (e.g, echocardiogram, treadmill testing, nuclear scan) [ ]xiii) Chronic renal insufficiency (ie, estimated GFR less than 60 mL/min/1.732m) [ ]xiv) Left ventricular ejection fraction less than 40% [ X]II. Evidence of MO (e.g, cardiac biomarkers positive, ST-segment elevation on ECG). Also use Myocardial Infarction. Extended stay beyond goal length of stay may be needed for (1)(26): [ ]a) Intravascular procedural complications such as acute vessel closure, stent malposition, or vessel dissection(27) [ ]b) Extravascular procedural complications such as retroperitoneal hematoma, pericardial effusion, or cardiac tamponade [ ]c) Entry site complications causing bleeding, hematoma, or distal ischemia and requiring ongoing monitoring, surgical repair, or surgical thrombectomy(28) [ ]d) Heart failure [ ]e) Dangerous arrhythmia [ ]f) Hemodynamic instability with persisting symptoms after intensive medical management, or recurring severe prolonged symptoms [ ]g) Postprocedural myocardial infarction or acute renal failure The original [facility] content created by [facility] [employer] has been revised. The portions of the content which have been revised are identified through the use of italic text or in bold, and [facility] has neither reviewed nor approved the modified material. All other unmodified content is copyright [facility]. Please see references footnoted in the original [facility] [employer] edition 2016 Admission Criteria Met: Yes
--- NOTE | 2017-01-22 09:16 | Progress Note ---
Assessment and Plan Impression: * End stage renal disease on HD TTS * Chest pain --[facility] (November 2016): no significant coronary disease, EF 30 - 35%. * Cardiomyopathy * Type II diabetes mellitus - uncontrolled * Hypertension * Hx of abdominal ascites * Anemia secondary to ESRD * Secondary hyperparathyroidism Plan: * Patient had an uneventful hemodialysis yesterday * Continue dialysis as outpatient on TTS schedule from today * Cardiac work up per primary team * Renal diet * Epogen for goal Hb 10-12 Subjective Date of service: 01/22/17 Interval history: Patient feels well this morning. Denies any shortness of breath. No nausea vomiting or diarrhea. Objective - Vital Signs Vital signs: Vital Signs - 12hr 01/21/17 01/21/17 01/22/17 21:32 22:00 00:24 Temperature 98.4 F 99.4 F Pulse Rate 83 82 Respiratory 18 20 Rate Blood Pressure 125/84 Blood Pressure 170/101 [Left] O2 Sat by Pulse 92 89 98 Oximetry 01/22/17 01/22/17 01/22/17 03:48 07:42 07:47 Temperature 98.8 F Pulse Rate 81 77 81 Respiratory 20 18 Rate Blood Pressure 127/80 136/83 Blood Pressure [Left] O2 Sat by Pulse 100 99 87 Oximetry - General Appearance General appearance: well-developed, well-nourished, appears stated age EENT: PERRL, mucous membranes moist Neck: no JVD, no thyromegaly, no carotid bruit, supple Respiratory: Present: Clear to Ascultation Cardiology: regular, normal heart rate, S1S2, no murmurs Gastrointestinal: normal, normoactive bowel sounds Integumentary: no rash, other (AV fistula in his left forearm. Good bruit and thrill) - Lab 01/21/17 05:13 01/21/17 05:13 Most recent lab results Calcium 7.3 mg/dL (8.4-10.2) L 01/21/17 05:13
[2017-01-22] MEDS: COREG PO SCH (11:24)
[2017-01-22] MEDS: ROCEPHIN/NS 1 GM/50 ML 1 GM/50 ML BAG IV SCH (11:25)
[2017-01-22] MEDS: APRESOLINE PO SCH (11:25)
[2017-01-22] MEDS: ASPIRIN PO SCH (11:26)
[2017-01-22] MEDS: ZITHROMAX 500 MG in NACL 0.9% 250ML 250 ML IV SCH (11:27)
--- NOTE | 2017-01-22 11:45 | Discharge Summary ---
Providers - Providers Date of Admission: 01/19/17 19:14 Date of discharge: 01/22/17 Attending physician: BINTA HOLLOWAY 01/19/17 19:18 Consult to Physician [CONS] Routine Consulting Provider: LYUBOV FITCH Reason For Exam: ACS Place consult to:: Dr. Thomson Notified:: Elizabet RN Phone number called:: Was contact made?: Yes If yes, spoke with:: Maria Esther-answering service Time called:: 11:32 01/20/17 09:51 Consult to Physician [CONS] Routine Consulting Provider: JAJA WOODARD Reason For Exam: ESRD to continue HD Place consult to:: Nephrology Notified:: Sukhdev RN Phone number called:: Was contact made?: Yes If yes, spoke with:: Ariana-answering service Time called:: 10:28 Primary care physician: BREAST SURGEON Hospitalization Condition: Fair Pertinent studies: CXR, abdominal XR Hospital course: Mr. Westfall is a 56yo with ESRD, CM and CAD s/p CABG who presented to the ED with chest pain. He was admitted with chest pain protocol for further evaluation. Cardiology was consulted and recommended medical management. ephrology was consulted for HD. He was then discharged home in stable condition. Discharge Diagnosis and Management: Atypical chest pain - Patient has chest pain with elevated troponin on the setting of ESRD - Patient has elevated troponin on his previous admissions too - Cardiac workup previously was negative - Cardiology consult placed and no further intervention recommended Chronic systolic CHF - Continued medical management with BB, statin and aspirin ESRD on hemodialysis - Patient is on hemodialysis TTS - Nephrology was consulted and had HD RLL pneumonia - Patient was placed on Zithromax and ceftriaxone - discharged home with levaquin to complete course. h/o CAD s/p CABG DVT prophylaxis - placed on Heparin Disposition: DC-01 TO HOME OR SELFCARE Time spent for discharge: 32 minutes Core Measure Documentation - Palliative Care Palliative Care/ Comfort Measures: Not Applicable - Core Measures Any of the following diagnoses?: heart failure - Heart Failure Discharge Requirements JAYANT/ARB for LVSD if EF <40%: Yes Beta lexis at discharge: Yes Exam - Constitutional Vitals: Temp Pulse Resp BP Pulse Ox 98.8 F 71 18 136/83 92 01/22/17 03:48 01/22/17 11:24 01/22/17 07:42 01/22/17 07:42 01/22/17 10:00 General appearance: Present: no acute distress, well-nourished - EENT Eyes: Present: PERRL ENT: hearing intact, clear oral mucosa - Neck Neck: Present: supple, normal ROM - Respiratory Respiratory effort: normal Respiratory: bilateral: CTA - Cardiovascular Heart Sounds: Present: S1 & S2. Absent: rub, click - Extremities Extremities: pulses symmetrical, No edema Peripheral Pulses: within normal limits - Abdominal General gastrointestinal: Present: soft, non-tender, non-distended, normal bowel sounds - Integumentary Integumentary: Present: clear, warm, dry - Musculoskeletal Musculoskeletal: gait normal, strength equal bilaterally - Psychiatric Psychiatric: appropriate mood/affect, intact judgment & insight - Neurologic Neurologic: CNII-XII intact, moves all extremities Plan Activity: advance as tolerated Weight Bearing Status: Weight Bear as Tolerated Diet: renal Follow up with: PRIMARY CARE, [Primary Care Provider] - 3-5 Days Prescriptions: Levofloxacin [Levaquin TAB] 500 mg PO QDAY #5 tablet oxyCODONE /ACETAMINOPHEN [Percocet 5/325] 1 tab PO Q6HR PRN #20 tablet PRN Reason: Pain
--- NOTE | 2017-01-22 12:09 | Progress Note ---
Assessment and Plan - Patient Problems (1) Chest pain Current Visit: Yes Status: Acute Qualifiers: Chest pain type: C Ischemic chest pain type: I Plan to address problem: Patient's chest pain is atypical, no further cardiac ischemic workup is indicated after 2 recent cardiac catheterizations that have both demonstrated angiographically normal coronary arteries. (2) Nonischemic cardiomyopathy Current Visit: Yes Status: Acute Plan to address problem: The patient's cardiac pathology is in nonischemic cardiomyopathy. The chronicity of this is unclear, but in our records, the first diagnosis was made in June. Recommendations for management of his nonischemic cardiomyopathy: Optimal medical therapy to include afterload reducing agents, beta blockers and oral antiplatelet therapy. Routine dialysis treatments to manage volume status and prevent fluid overload. Outpatient, we will get another echocardiogram done 9 months after the initial diagnosis and contemplated ICD therapy for primary prevention. Subjective Date of service: 01/22/17 Interval history: Patient is a 56-year-old man with end-stage renal disease on hemodialysis and nonischemic cardiomyopathy. He has had extensive invasive cardiac workup over the past 5 months. Specifically, he has had 2 cardiac catheterizations over the past 5 months, both at this hospital. In June 2016, a cardiac catheterization here revealed essentially normal coronary arteries, with the left ventricular systolic ejection fraction 30%. For unclear reasons, he had another cardiac catheterization in November 2016, which essentially reported the same findings, normal coronaries and in nonischemic cardiomyopathy with ejection fraction of 30-35%. The patient presents at this time with nonspecific symptoms of chest pain associated with cough, and cardiac consultation is again requested for "acute coronary syndrome ". Objective Vital Signs Temp Pulse Resp BP BP Pulse Ox 01/22/17 11:24 71 01/22/17 10:00 92 01/22/17 07:47 81 87 01/22/17 07:42 77 18 136/83 99 01/22/17 03:48 98.8 F 81 20 127/80 100 01/22/17 00:24 99.4 F 82 20 125/84 98 01/21/17 22:00 89 01/21/17 21:32 98.4 F 83 18 170/101 92 01/21/17 21:00 82 01/21/17 19:52 69 01/21/17 16:00 97.5 F L 88 18 140/81 93 01/21/17 14:50 97.8 F 72 18 161/82 01/21/17 14:30 71 137/85 01/21/17 14:15 70 146/87 01/21/17 14:00 71 133/76 01/21/17 13:45 72 124/70 01/21/17 13:30 72 128/80 01/21/17 13:15 72 140/80 01/21/17 13:00 75 124/76 01/21/17 12:45 71 122/76 01/21/17 12:30 70 123/62 01/21/17 12:15 69 114/62 - Physical Examination General: No Apparent Distress HEENT: Positive: PERRL, EOMI Neck: Positive: neck supple Cardiac: Positive: Reg Rate and Rhythm Lungs: Positive: Decreased Breath Sounds Neuro: Positive: Grossly Intact Abdomen: Positive: Soft, Active Bowel Sounds Skin: Positive: Clear Extremities: Absent: edema
[2017-01-22] MEDS ORDERED: ZESTRIL PO SCH (14:00)
[2017-01-22 17:04] VITALS: BP 130/79
[2017-01-23] MEDS ORDERED: ZITHROMAX PO SCH (10:00)
== END 2017-01-22 17:57 | disposition home or self-care (01) | DRG 177 ==
LOC: ED 12:13 → 4A 19:14
PROVIDERS: ADMIT Internal Medicine; ATTEND Internal Medicine
PROC: 5A1D60Z (ICD-10-PCS; principal; 2017-01-21)
DX: J69.0 Pneumonitis due to inhalation of food and vomit (principal); N18.6 End stage renal disease; I13.2 Hypertensive heart and chronic kidney disease with heart failure and with stage 5 chronic kidney disease, or end stage renal disease; I42.9 Cardiomyopathy, unspecified; N25.81 Secondary hyperparathyroidism of renal origin; I50.22 Chronic systolic (congestive) heart failure; Z88.8 Allergy status to other drugs, medicaments and biological substances; Z88.5 Allergy status to narcotic agent; Z91.013 Allergy to seafood; E11.22 Type 2 diabetes mellitus with diabetic chronic kidney disease; Z99.2 Dependence on renal dialysis; K21.9 Gastro-esophageal reflux disease without esophagitis; F32.9 Major depressive disorder, single episode, unspecified; F17.200 Nicotine dependence, unspecified, uncomplicated; Z79.82 Long term (current) use of aspirin; Z79.4 Long term (current) use of insulin; G40.909 Epilepsy, unspecified, not intractable, without status epilepticus; Z83.3 Family history of diabetes mellitus; Z82.49 Family history of ischemic heart disease and other diseases of the circulatory system; D63.1 Anemia in chronic kidney disease; R07.89 Other chest pain
CPT/HCPCS: 36415; 71020; 74022; 80048; 80061; 82962; 83690; 84484; 85007; 85025; 87040; 93005; 93010; 94760; 96365; A9270-GY; J0456; J0696; J1818; J2270; J2543; J7030; J7050

== ENCOUNTER 2017-03-14 09:27 | Emergency (ER) | payer MEDICARE ==
[2017-03-14] MEDS ORDERED: NITROSTAT SL PRN (10:37)
--- NOTE | 2017-03-14 10:38 | Emergency Department Report ---
ED Chest Pain HPI - General Chief Complaint: Chest Pain Stated Complaint: CP Time Seen by Provider: 03/14/17 10:28 Source: patient, EMS (ems notes not available at time of chart dictation), RN notes reviewed, old records reviewed Mode of arrival: Stretcher Limitations: No Limitations, Other (patient is a poor historian) - History of Present Illness Initial Comments: This is a 56-year-old male. The patient is previously known to this provider. Has a past medical history of end-stage renal disease on dialysis, Saturday, , Saturday, cirrhosis, hypertension, high cholesterol, sleep apnea, congestive heart failure. Patient had a cardiac catheterization at this hospital November 2016, which demonstrated "moderate left ventricular dysfunction, ejection fraction 30-35%, diffuse hypokinesis, normal coronary anatomy, dilated cardiac myopathy with no significant coronary disease." The patient presents to the ER today with complaint of chest pain. The chest pain is central. It does not radiate to the back, arms or neck. Patient denies vomiting and diaphoresis. He has chronic shortness of breath. He also endorses chronic lower extremity swelling. He reports the pain feels like he is "being punched in the chest." Patient seen multiple times by cardiology after his cardiac catheterization, as per a recent cardiology consultation from January 2017 "patient is okay cardiac reilly to proceed with hemodialysis today." MD Complaint: chest pain -: Gradual Onset: during rest Pain Location: substernal Pain Radiation: none Severity: moderate Severity scale (0 -10): 8 Quality: aching Consistency: intermittent Improves With: nothing Worsens With: nothing Other Symptoms: cough Treatments Prior to Arrival: none Aspirin use within the Past 7 Days: (1) Yes - Related Data On Oral Contraceptives: No Home Medications Medication Instructions Recorded Confirmed Last Taken Aspirin [Aspirin TAB] 81 mg PO QDAY 10/29/16 03/14/17 03/13/17 Previous Rx's Medication Instructions Recorded Last Taken Type AtorvaSTATin [Lipitor] 40 mg PO QHS #30 tablet 09/28/16 03/13/17 Rx Syring-Needl,Disp,Insul,0.3 ml 1 each [facility] #100 disp.syrin 09/28/16 03/13/17 Rx [Insulin Syringe/Needle 0.3 ML] Carvedilol [Coreg] 25 mg PO BID 60 Days 11/14/16 03/13/17 Rx Insulin Detemir [Levemir] 8 units SUB-Q QHS 30 Days 12/12/16 03/13/17 Rx hydrALAZINE [Apresoline TAB] 100 mg PO BID #60 tab 12/12/16 03/13/17 Rx oxyCODONE /ACETAMINOPHEN [Percocet 1 tab PO Q6HR PRN #20 tablet 01/22/17 Rx 5/325 mg] Allergies Allergy/AdvReac Type Severity Reaction Status Date / Time acetaminophen [From Percocet] Allergy Unknown Verified 11/08/16 11:28 morphine Allergy Unknown Verified 11/08/16 11:28 oxycodone Allergy Unknown Verified 11/08/16 11:28 oxycodone HCl [From Percocet] Allergy Unknown Verified 11/08/16 11:28 oxycodone terephthalate Allergy Itching Verified 11/08/16 11:28 [From Percodan] shellfish derived Allergy Unknown Verified 11/08/16 11:28 Heart Score - HEART Score History: Slightly suspicious EKG: Non-specific Age: 45-65 Risk factors: > 3 risk factors or hx of atherosclerotic disease Troponin: > 3x normal limit HEART Score: 6 - Critical Actions Critical Actions: 4-6 pts:12-16.6% risk of adverse cardiac event. Should be admitted ED Review of Systems ROS: Stated complaint: CP Other details as noted in HPI Constitutional: malaise Eyes: denies: eye discharge ENT: denies: epistaxis Respiratory: cough Cardiovascular: chest pain Gastrointestinal: abdominal pain Musculoskeletal: myalgia Skin: denies: lesions Neurological: weakness ED Past Medical Hx - Past Medical History Previous Medical History?: Yes Hx Hypertension: Yes Hx Congestive Heart Failure: Yes Hx Diabetes: Yes Hx GERD: Yes Hx Renal Disease: Yes (TUES / THURS / SAT) Hx of Cancer: Yes (prostate) Hx Arthritis: Yes (knees) Hx Seizures: Yes Hx Psychiatric Treatment: Yes (depression) Hx Asthma: No Hx COPD: Yes Hx HIV: No Additional medical history: sleep apnea, erectile dysfunction, dialysis, back pain, high cholesterol - Surgical History Past Surgical History?: Yes Additional Surgical History: biopsy on prostate, fistula left arm,. HERNIA REPAIR, paracentesis - Social History Smoking Status: Current Every Day Smoker - Medications Home Medications: Home Medications Medication Instructions Recorded Confirmed Last Taken Type AtorvaSTATin [Lipitor] 40 mg PO QHS #30 tablet 09/28/16 03/14/17 03/13/17 Rx Syring-Needl,Disp,Insul,0.3 ml 1 each [facility] #100 disp.syrin 09/28/16 03/14/17 03/13/17 Rx [Insulin Syringe/Needle 0.3 ML] Aspirin [Aspirin TAB] 81 mg PO QDAY 10/29/16 03/14/17 03/13/17 History Carvedilol [Coreg] 25 mg PO BID 60 Days 11/14/16 03/14/17 03/13/17 Rx Insulin Detemir [Levemir] 8 units SUB-Q QHS 30 Days 12/12/16 03/14/17 03/13/17 Rx hydrALAZINE [Apresoline TAB] 100 mg PO BID #60 tab 12/12/16 03/14/17 03/13/17 Rx oxyCODONE /ACETAMINOPHEN [Percocet 1 tab PO Q6HR PRN #20 tablet 01/22/1703/13/17 Rx 5/325 mg] ED Physical Exam - General Limitations: Other General appearance: alert, in no apparent distress - Head Head exam: Present: atraumatic, normocephalic - Eye Eye exam: Present: normal appearance, EOMI. Absent: nystagmus - ENT ENT exam: Present: normal exam, normal orophraynx, mucous membranes moist, normal external ear exam - Neck Neck exam: Present: normal inspection, full ROM. Absent: tenderness, meningismus - Respiratory Respiratory exam: Present: normal lung sounds bilaterally, chest wall tenderness. Absent: respiratory distress, wheezes, rales, rhonchi, stridor, accessory muscle use, decreased breath sounds, prolonged expiratory - Cardiovascular Cardiovascular Exam: Present: regular rate, normal rhythm, normal heart sounds. Absent: bradycardia, tachycardia, irregular rhythm, systolic murmur, diastolic murmur, rubs, gallop - GI/Abdominal GI/Abdominal exam: Present: soft, normal bowel sounds. Absent: distended, tenderness, guarding, rebound, rigid, pulsatile mass - Rectal Rectal exam: Present: deferred - Extremities Exam Extremities exam: Present: normal inspection, full ROM, normal capillary refill , pedal edema, calf tenderness, other (left upper extremity AV fistula with appropriate throat. No redness, pus or streaking) - Back Exam Back exam: Present: normal inspection, full ROM. Absent: paraspinal tenderness - Neurological Exam Neurological exam: Present: alert, other (Extraocular movements intact. Tongue midline. No facial droop. Facial sensation intact to light touch in the V1, V2 , V3 distribution bilaterally. 5 and 5 strength in 4 extremities.. Sensation is intact to light touch in 4 extremities.). Absent: motor sensory deficit - Psychiatric Psychiatric exam: Present: normal affect, normal mood - Skin Skin exam: Present: warm, dry, intact, normal color. Absent: rash ED Course Vital Signs 03/14/17 03/14/17 03/14/17 09:59 10:00 14:16 Temperature 98.5 F 98.7 F Pulse Rate 92 H 91 H Respiratory 20 20 20 Rate Blood Pressure 135/76 173/106 [Right] O2 Sat by Pulse 95 95 95 Oximetry - Reevaluation(s) Reevaluation #1: 03/14/17 12:29 Rediscussed with nephrology, Diana and Dr. Choi. Dr. Choi recommended 60 g of Kayexalate, and indicated that patient does not require admission for dialysis at this time for his hyperkalemia, and he can have outpatient dialysis tomorrow, which has already been established for him. Patient has already had a recent definitive cardiac risk stratification by cardiology, cardiology has signed off on her multiple times. Repeat EKG and troponin are pending at this time. chair time at [address] [place] [address] at [facility] 03/14/17 12:30 Reevaluation #2: 03/14/17 13:35 Resting comfortably, no distress, repeat EKG unchanged from prior, noncontrast CT scan does not demonstrate pneumonia. Mild pulmonary vascular congestion is noted, patient saturating well, and in no respiratory distress. Reevaluation #3: 03/14/17 14:25 Troponin unremarkable, chronically elevated, unchanged when compared to baseline. Repeat vital signs unremarkable, patient resting comfortably, patient will be discharged at this time, he can follow up with outpatient nephrology tomorrow for his dialysis. Reevaluation #4: 03/14/17 14:56 Case is also presented to consulting cardiology, Dr. Dutta, who agrees patient suitable for follow-up as an outpatient. Patient's laboratory studies, EKG, recent cath reports were transmitted/related. 03/14/17 20:02 AMOS score - Amos Score Age > 65: (0) No Aspirin use within the Past 7 Days: (0) No 3 or more CAD Risk Factors: (1) Yes 2 or more Angina events in past 24 hrs: (1) Yes Known CAD with more than 50% Stenosis: (0) No Elevated Cardiac Markers: (1) Yes ST Deviation Greater than 0.5mm: (0) No AMOS Score: 3 ED Medical Decision Making - Lab Data Result diagrams: 03/14/17 10:12 03/14/17 10:12 Vital Signs 03/14/17 03/14/17 09:59 10:00 Temperature 98.5 F Pulse Rate 92 H Respiratory 20 20 Rate Blood Pressure 135/76 [Right] O2 Sat by Pulse 95 95 Oximetry Lab Results 03/14/17 03/14/17 03/14/17 Range/Units 10:12 10:12 10:42 WBC 8.2 (4.5-11.0) K/mm3 RBC 3.50 L (3.65-5.03) M/mm3 Hgb 9.6 L (11.8-15.2) gm/dl Hct 28.6 L (35.5-45.6) % MCV 82 L (84-94) fl MCH 27 L (28-32) pg MCHC 34 (32-34) % RDW 20.1 H (13.2-15.2) % Plt Count 176 (140-440) K/mm3 Lymph % (Auto) 7.0 L (13.4-35.0) % Kay % (Auto) 7.1 (0.0-7.3) % Eos % (Auto) 1.9 (0.0-4.3) % Baso % (Auto) 0.5 (0.0-1.8) % Lymph # 0.6 L (1.2-5.4) K/mm3 Kay # 0.6 (0.0-0.8) K/mm3 Eos # 0.2 (0.0-0.4) K/mm3 Baso # 0.0 (0.0-0.1) K/mm3 Seg Neutrophils % 83.5 H (40.0-70.0) % Seg Neutrophils # 6.8 (1.8-7.7) K/mm3 PT 17.8 H (12.2-14.9) Sec. INR 1.39 H (0.87-1.13) APTT 51.7 H (24.2-36.6) Sec. Sodium 132 L (137-145) mmol/L Potassium 5.5 H (3.6-5.0) mmol/L Chloride 91.5 L (98-107) mmol/L Carbon Dioxide 25 (22-30) mmol/L Anion Gap 21 mmol/L BUN 64 H (9-20) mg/dL Creatinine 7.8 H (0.8-1.5) mg/dL Estimated GFR 9 ml/min BUN/Creatinine Ratio 8 % Glucose 200 H (75-100) mg/dL Calcium 7.3 L (8.4-10.2) mg/dL Troponin T 1.430 H* (0.00-0.029) ng/mL Triglycerides 59 (2-149) mg/dL Cholesterol 69 (50-199) mg/dL LDL Cholesterol Direct 28 L (50-130) mg/dL HDL Cholesterol 30 L (40-59) mg/dL Cholesterol/HDL Ratio 2.30 % - EKG Data -: EKG Interpreted by Hi EKG shows normal: sinus rhythm Rate: normal - EKG Data Interpretation: unchanged when compared t 03/14/17 11:50 Sinus, 91 bpm, P waves, QTC prolonged, motion artifact, not morphologically consistent with STEMI, appears unchanged compared to prior, borderline first- degree AV block. - Radiology Data Radiology results: report reviewed, image reviewed [facility] 1960 [facility]# [id number] 03/14/17 11:22 - Radiology Dept. Note by GHASSAN FOREMAN [facility] Num: [id number] : 1960 Patient Age: 56 VASCULAR LAB PRELIMINARY REPORT BLE VENOUS DOPPLER COMPLETED NO EVIDENCE OF DVT/SVT NOTED IN VESSELS/SEGMENTS VISUALIZED DR. HENRANDEZ INFORMED Initialized on 03/14/17 11:22 - END OF NOTE Noncontrast CT scan of the chest demonstrates mild pulmonary vascular congestion , no acute pneumonia. - Medical Decision Making Differential diagnosis: Congestive heart failure, pneumonia, DVT, acute coronary syndrome, GERD, gastritis, costochondritis Assessment and plan: 56-year-old male with atypical chest pain, chronically elevated troponin, troponin today appears to be at baseline, and appears unchanged from prior. Recently had a negative cardiac catheterization a few months ago. Doubt acute coronary syndrome given the aforementioned. Patient is a poor historian, not hypoxic at this time, lower extremity duplex is negative for DVT, therefore think pulmonary embolus is unlikely. Critical care attestation.: If time is entered above; I have spent that time in minutes in the direct care of this critically ill patient, excluding procedure time. ED Disposition Clinical Impression: Elevated troponin I level, ESRD (end stage renal disease) on dialysis, Hyperkalemia Disposition: - TO HOME OR SELFCARE Is pt being admited?: No Does the pt Need Aspirin: Yes Condition: Good Instructions: Chronic Kidney Disease (ED) Additional Instructions: Continue current outpatient medications. 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 Return to the ER right away with few pain, worsening pain, migration of pain, fevers, chills, lethargy, irritability, projectile vomiting, change in mental status, inability to tolerate liquid feedings. Referrals: PRIMARY CARE, [Primary Care Provider] - 3-5 Days EDWARDO RUIZ MD [Staff Physician] - 3-5 Days MEGHA CA MD [Staff Physician] - 3-5 Days
[2017-03-14 10:40] LABS: Basophils % (Auto) 0.5 % (0.0-1.8); Eosinophils % (Auto) 1.9 % (0.0-4.3); Hematocrit 28.6 % (35.5-45.6); Hemoglobin 9.6 gm/dl (11.8-15.2); Mean Corpuscular HGB Conc 34 % (32-34); Mean Corpuscular Hemoglobin 27 pg (28-32); Mean Corpuscular Volume 82 fl (84-94); Platelet Count 176 K/mm3 (140-440); White Blood Count 8.2 K/mm3 (4.5-11.0)
[2017-03-14 10:53] LABS: Calcium 7.3 mg/dL (8.4-10.2); Chloride 91.5 mmol/L (98-107)
[2017-03-14 10:54] LABS: Red Cell Distribution Width 20.1 % (13.2-15.2)
[2017-03-14 10:55] LABS: Potassium 5.5 mmol/L (3.6-5.0)
[2017-03-14 11:18] LABS: INR 1.39 (0.87-1.13)
[2017-03-14 11:19] LABS: Partial Thromboplastin Time 51.7 Sec. (24.2-36.6)
[2017-03-14] MEDS ORDERED: BABY ASPIRIN PO ONE (11:24)
[2017-03-14] MEDS ORDERED: KIONEX PO ONE ×2 (11:50→12:29)
--- NOTE | 2017-03-14 11:50 | XRay Report ---
Single view chest: Compared to 02/16/17. History: Chest pain, shortness of breath. Findings: Cardiomegaly. Trachea is midline. Pulmonary vascular congestion the more proximal of the right side. Minimal right pleural effusion. Impression: Probable unilateral pulmonary edema or early congestive failure.
--- NOTE | 2017-03-14 13:19 | Cat Scan Report ---
CT CHEST WITHOUT CONTRAST: HISTORY: Chest pain, cough. TECHNIQUE: Helical CT with sagittal and coronal reformatted images. FINDINGS: Mild cardiomegaly and mild pulmonary venous congestion are appreciated. The mediastinal vessels are grossly normal on noncontrast CT. Mild aortic calcifications are noted. No bulky thoracic or mediastinal adenopathy. There is a moderate layering right pleural effusion measuring up to 4 cm in thickness. Mild compressive atelectasis is present in the right lower lobe. The interstitium is slightly prominent bilaterally. This probably represents interstitial edema. No evidence for consolidation or pneumothorax. The bony structures are grossly intact. Limited images of the upper abdomen demonstrate moderate ascites and bilateral renal atrophy. IMPRESSION: Findings compatible with mild CHF. Ascites. Renal atrophy.
[2017-03-14 14:17] VITALS: BP 173/106
== END 2017-03-14 15:02 | disposition home or self-care (01) ==
LOC: ED 09:27
DX: E87.5 Hyperkalemia (principal); E11.22 Type 2 diabetes mellitus with diabetic chronic kidney disease; I12.0 Hypertensive chronic kidney disease with stage 5 chronic kidney disease or end stage renal disease; N18.6 End stage renal disease; Z99.2 Dependence on renal dialysis; K21.9 Gastro-esophageal reflux disease without esophagitis; J44.9 Chronic obstructive pulmonary disease, unspecified; F17.200 Nicotine dependence, unspecified, uncomplicated; R79.89 Other specified abnormal findings of blood chemistry
CPT/HCPCS: 36415; 71010; 71250; 80048; 80061; 82550; 84484; 85025; 85610; 85730; 93005; 93010; 93970